=== PATIENT | female | born 1940 | race Caucasian/White ===

== ENCOUNTER 2016-06-02 18:02 | Emergency (ER) | payer MEDICARE ==
--- NOTE | 2016-06-02 18:31 | ERPHSYRPT ---
- History of Present Illness Source: patient Exam Limitations: no limitations Patient Subjective Stated Complaint: pt reports 2 days ago had a MEANS with floaters in her vision. "optical migraines". watching tv today and began having numbness, tingling, and floating sensation on right side of her body. c/o numbenss to right side. with decreased sensation Triage Nursing Assessment: Pt assisted via w/c to treatment area. no facial drooping noted. speech clear, denies pain or disc. smiling, denies pain or disc. minimal difficulty with finger to nose test. Timing/Duration: today (45 minutes prior to arrival) Severity: moderate Modifying Factors: Worsens With: cold therapy, eating, immobilization, medication, movement, rest, acetaminophen, ibuprofen Associated Symptoms: weakness (patient feels like she might be a little weaker on the right side), other (numbness right arm leg and face), No nausea, No vomiting, No abdominal pain, No shortness of breath, No heartburn, No diaphoresis, No cough, No chills, No chest pain, No fever, No headaches, No loss of appetite, No malaise, No rash, No syncope, No seizure Hx Tetanus, Diphtheria Vaccination/Date Given: Yes Hx Influenza Vaccination/Date Given: Yes Hx Pneumococcal Vaccination/Date Given: Yes Immunizations Up to Date: No <DIVINE BECKMAN - Last Filed: 06/02/16 18:42> - History of Present Illness Source: patient, family Exam Limitations: no limitations Severity: moderate <JUMA BARKSDALE - Last Filed: 06/02/16 21:10> - History of Present Illness Time Seen by Provider: 06/02/16 18:25 Physician History: 75-year-old white female arrives with complaint of paresthesia to the right side of her body including face arm and leg symptoms since 45 minutes prior to arrival patient states she feels a little weak on her right side however she has not had any movement problems she has no problems speaking. She states she had "an optical migraine" several days ago in which she felt like she was seeing floaters. And she states she gets these from time to time . 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; no neurodeficit but subjective paresthesis right side of body x 1 1/4 hours no prior CVA; has ocular migraines and had one last week a little more than usual; no headache today ; normal visual mack , no motor deficits at this time; repeat coord normal UE; (JUMA BARKSDALE) Home Medications: Ascorbic Acid [Vitamin C] 500 mg PO DAILY 06/02/16 [History] Aspirin 81 gm Chew [Baby Aspirin 81 mg Chew] 81 mg PO DAILY 06/02/16 [ History] Calcium Carbonate/Vitamin D3 [Calcium 500 mg Chewable Tablet] 1 each PO DAILY [History] Carvedilol 12.5 mg [Coreg 12.5 mg] 25 mg PO BID 06/02/16 [History] Cholecalciferol (Vitamin D3) [Vitamin D3] 1,000 unit PO DAILY 06/02/16 [History] Cyanocobalamin (Vitamin B-12) [Vitamin B12] 2,500 mcg PO DAILY 06/02/16 [History ] Ezetimibe 10 mg [Zetia 10 MG] 10 mg PO DAILY 06/02/16 [History] Ferrous Sulfate [Iron] 325 mg PO DAILY 06/02/16 [History] Flaxseed Oil/[place] 3,6,9 [Sv Flaxseed Oil 1,300 mg Sftgl] 1 each PO DAILY [History] Lutein Extract/Zeaxanthin Ext [Lutein 15 mg Softgel] 1 each PO UD 06/02/16 [ History] Multivitamin [Multivitamins] 1 each PO DAILY 06/02/16 [History] Naproxen 250 mg PO TID 06/02/16 [History] Omeprazole [Prilosec] 40 mg PO BID 06/02/16 [History] Psyllium Husk [Fiber Therapy] 0.52 gm PO 06/02/16 [History] Vitamin A 8,000 unit PO DAILY 06/02/16 [History] - Review of Systems Constitutional: No Fever, No Chills Eyes: No Symptoms, Other (patient with optical migraines 2 days ago) Ears, Nose, & Throat: No Symptoms Respiratory: No Cough, No Dyspnea Cardiac: No Chest Pain, No Edema, No Syncope Abdominal/Gastrointestinal: No Abdominal Pain, No Nausea, No Vomiting, No Diarrhea Genitourinary Symptoms: No Dysuria Musculoskeletal: No Back Pain, No Neck Pain Skin: No Rash Neurological: Other (patient states she feels somewhat numb on the right arm leg and face. Patient states she feels like she might be a little weaker on the right) Psychological: No Symptoms Endocrine: No Symptoms All Other Systems: Reviewed and Negative <YOCASTADIVINE ANUPAMA - Last Filed: 06/02/16 18:42> - Past Medical History Pertinent Past Medical History: Yes Neurological History: Migraines ENT History: No Pertinent History Cardiac History: Arrhythmia, Hypertension Respiratory History: No Pertinent History Endocrine Medical History: No Pertinent History Musculoskeletal History: Arthritis GI Medical History: Other History: No Pertinent History Psycho-Social History: No Pertinent History Female Reproductive Disorders: No Pertinent History Other Medical History: hiatal hernia - Past Surgical History Past Surgical History: Yes Neuro Surgical History: No Pertinent History Cardiac: No Pertinent History Respiratory: No Pertinent History Gastrointestinal: Cholecystectomy Musculoskeletal: Orthopedic Surgery Female Surgical History: Hysterectomy Other Surgical History: gastric bypass, carpal tunnel, left knee replacement - Social History Smoking Status: Former smoker Exposure to second hand smoke: No Drug Use: none Patient Lives Alone: No <YOCASTADIVINE ANUPAMA - Last Filed: 06/02/16 18:42> - Physical Exam General Appearance: no apparent distress, alert Eye Exam: PERRL/EOMI, eyes nml inspection Ears, Nose, Throat Exam: normal ENT inspection, TMs normal, pharynx normal, moist mucous membranes Neck Exam: normal inspection, non-tender, supple, full range of motion Respiratory Exam: normal breath sounds, lungs clear, No respiratory distress Cardiovascular Exam: regular rate/rhythm, normal heart sounds, normal peripheral pulses Gastrointestinal/Abdomen Exam: soft, normal bowel sounds, No tenderness, No mass Back Exam: normal inspection, normal range of motion, No CVA tenderness, No vertebral tenderness Extremity Exam: normal inspection, normal range of motion, pelvis stable Neurologic Exam: alert, oriented x 3, cooperative, leisure travel agent II-XII nml as tested, normal mood/affect, nml cerebellar function, nml station & gait, sensation nml, other (patient alert oriented 3, cranial nerves II through XII are intact, DTRs symmetrical equal 2 over 4 musculoskeletal strength intact and symmetrical 5 over 5 patient slightly overshoots her nose was finger to nose with her right hand otherwise her nose within normal limits no pronator drift is noted), No motor deficits Skin Exam: normal color, warm, dry, No rash Lymphatic Exam: No adenopathy SpO2 Interpretation: normal (96%) Oxygen Delivery: Room Air <ELHAMNGADIVINE HILLLEY - Last Filed: 06/02/16 18:42> - Course Nursing assessment & vital signs reviewed: Yes EKG Interpreted by Me: Sinus Rhythm, NORMAL AXIS, Non-specific ST Changes, Other (poor r wave progression) - CT Exams Head CT Interpretation: Negative, Tele-radiologist Report <JUMA BARKSDALE - Last Filed: 06/02/16 21:10> Ordered Tests: Active Orders 24 hr Category Date Time Status Accucheck STAT Care 06/02/16 18:24 Active EKG-ER Only STAT Care 06/02/16 18:24 Active IV Insertion STAT Care 06/02/16 18:24 Active HEAD WITHOUT CONTRAST [CT] Stat Exams 06/02/16 18:24 Completed CBC W DIFF Stat Lab 06/02/16 18:15 Completed CMP Stat Lab 06/02/16 18:15 Completed PROTIME WITH INR Stat Lab 06/02/16 18:15 Completed PTT Stat Lab 06/02/16 18:15 Completed TROPONIN Q3H Lab 06/02/16 19:30 Completed TROPONIN Q3H Lab 06/02/16 22:30 Ordered TROPONIN Q3H Lab 06/03/16 01:30 Ordered TROPONIN Q3H Lab 06/03/16 04:30 Ordered TROPONIN Q3H Lab 06/03/16 07:30 Ordered Lab/Rad Data: Laboratory Result Diagrams 06/02/16 18:15 06/02/16 18:15 Laboratory Results 06/02/16 06/02/16 06/02/16 Range/Units 19:30 18:15 18:15 WBC (4.0-10.5) K/mm3 RBC (4.1-5.4) M/mm3 Hgb (12.0-16.0) gm/dl Hct (35-47) % MCV (78-100) fl MCH (26-32) pg MCHC (32-36) g/dl RDW (11.5-14.0) % Plt Count (150-450) K/mm3 MPV (6-9.5) fl Gran % (36.0-66.0) % Lymphocytes % (24.0-44.0) % Monocytes % (0.0-12.0) % Eosinophils % (0.00-5.0) % Basophils % (0.0-0.4) % Basophils # (0-0.4) INR 1.06 (0.8-3.0) PTT 32.3 (25.3-37.0) SECONDS Sodium 138 (136-145) mEq/L Potassium 4.0 (3.5-5.1) mEq/L Chloride 103 (98-107) mEq/L Carbon Dioxide 25.2 (21-32) mEq/L Anion Gap 14.0 (5-15) MEQ/L BUN 25 H (9-20) mg/dL Creatinine 1.27 (0.55-1.30) mg/dl Estimated GFR 43 ML/MIN Glucose 111 H (70-110) MG/DL Calcium 9.0 (8.5-10.1) mg/dL Total Bilirubin 0.6 (0.2-1.0) mg/dL AST 19 (15-37) U/L ALT 21 (12-78) U/L Alkaline Phosphatase 87 (46-116) U/L Troponin I 0.052 (0.000-0.056) ng/ml Serum Total Protein 7.0 (6.4-8.2) gm/dL Albumin 3.7 (3.4-5.0) g/dL 06/02/16 Range/Units 18:15 WBC 8.4 (4.0-10.5) K/mm3 RBC 4.58 (4.1-5.4) M/mm3 Hgb 14.0 (12.0-16.0) gm/dl Hct 42.9 (35-47) % MCV 93.7 (78-100) fl MCH 30.6 (26-32) pg MCHC 32.6 (32-36) g/dl RDW 13.3 (11.5-14.0) % Plt Count 307 (150-450) K/mm3 MPV 10.0 H (6-9.5) fl Gran % 61.7 (36.0-66.0) % Lymphocytes % 25.0 (24.0-44.0) % Monocytes % 10.9 (0.0-12.0) % Eosinophils % 2.3 (0.00-5.0) % Basophils % 0.1 (0.0-0.4) % Basophils # 0.01 (0-0.4) INR (0.8-3.0) PTT (25.3-37.0) SECONDS Sodium (136-145) mEq/L Potassium (3.5-5.1) mEq/L Chloride (98-107) mEq/L Carbon Dioxide (21-32) mEq/L Anion Gap (5-15) MEQ/L BUN (9-20) mg/dL Creatinine (0.55-1.30) mg/dl Estimated GFR ML/MIN Glucose (70-110) MG/DL Calcium (8.5-10.1) mg/dL Total Bilirubin (0.2-1.0) mg/dL AST (15-37) U/L ALT (12-78) U/L Alkaline Phosphatase (46-116) U/L Troponin I (0.000-0.056) ng/ml Serum Total Protein (6.4-8.2) gm/dL Albumin (3.4-5.0) g/dL - Progress Progress: improved <DIVINE BECKMAN - Last Filed: 06/02/16 18:42> - Progress Progress: improved, re-examined Discussed with Dr.: Other (Dr. Sim at [facility] ) Will see patient in: hospital (full admit) Counseled pt/family regarding: lab results, diagnosis, need for follow-up, rad results <JUMA BARKSDALE - Last Filed: 06/02/16 21:10> - Progress Progress Note: 06/02/16 18:40 This is a 75-year-old white female who complains of right-sided numbness and some subjective mild right-sided weakness symptoms for [address] of the head has been ordered as have appropriate labs. Case has been discussed with Dr. Ferrara. He will assume care of this patient secondary to shift change. (DIVINE BECKMAN) 06/02/16 19:14 pt numbness feelings have improved some; coord is again normal F to N at this time;no objective decreased sensation at [facility] time; 06/02/16 21:[address] Sim at [facility] who accepted and is getting a bed on stroke unit and ordering MR studies; (JUMA BARKSDALE) <DIVINE BECKMAN - Last Filed: 06/02/16 18:42> - Departure Time of Disposition: 21:07 Departure Disposition: Transfer Critical Care Time: No <JUMA BARKSDALE - Last Filed: 06/02/16 21:10> - Departure Clinical Impression: TIA (transient ischemic attack) Condition: Good Referrals: WES ZAVALETA [Primary Care Provider] -
[2016-06-02 18:34] LABS: BASOPHIL % 0.1 % (0.0-0.4); Eosinophil % 2.3 % (0.00-5.0); Granulocytes % 61.7 % (36.0-66.0); Mean Cell Volume 93.7 fl (78-100); Mean Corpuscular Hemoglobin 30.6 pg (26-32); Monocytes % 10.9 % (0.0-12.0); Platelet Count 307 K/mm3 (150-450); Red Blood Count 4.58 M/mm3 (4.1-5.4); Red Cell Distribution Width 13.3 % (11.5-14.0); White Blood Count 8.4 K/mm3 (4.0-10.5)
[2016-06-02 18:48] LABS: INR 1.06 (0.8-3.0); PROTIME 11.8 SECONDS (9.95-12.35)
[2016-06-02 18:51] LABS: PTT 32.3 SECONDS (25.3-37.0)
[2016-06-02 18:56] LABS: ALBUMIN 3.7 g/dL (3.4-5.0); BILIRUBIN,TOTAL 0.6 mg/dL (0.2-1.0); Carbon Dioxide 25.2 mEq/L (21-32)
[2016-06-02 20:31] VITALS: BP 148/93; PULSE 85; O2SAT 95
--- NOTE | 2016-06-02 20:51 | XRAY ---
Indication: Right-sided numbness. Multiple contiguous axial images obtained through the head without contrast. Comparison: None Normal appearing brain parenchyma, ventricles, and bony calvarium. Visualized paranasal sinuses and mastoid air cells are pneumatized and clear. Impression: Normal CT head without contrast exam. CTDI 67.80
== END 2016-06-02 22:37 | disposition short-term general hospital (02) ==
LOC: ED 18:02
DX: G45.9 Transient cerebral ischemic attack, unspecified (principal); Z79.899 Other long term (current) drug therapy; R20.9 Unspecified disturbances of skin sensation; I10 Essential (primary) hypertension; Z98.84 Bariatric surgery status
CPT/HCPCS: 36000; 36415; 70450; 80053; 82962; 84484; 85025; 85610; 85730; 93005; 99284; 99285

== ENCOUNTER 2016-12-22 11:23 | Emergency (ER) | payer MEDICARE ==
--- NOTE | 2016-12-22 11:45 | ERPHSYRPT ---
- History of Present Illness Time Seen by Provider: 12/22/16 11:37 Source: patient Exam Limitations: no limitations Physician History: 76 y/o female comes to the ER with complaints of right sided flank pain and lower abdominal pressure that started this morning. Pt describes the pain as sharp, constant, 7/10 and pt has not taken any pain meds. Pt admits to polyuria , nausea and chills. Pt has had a UTI in the past but never has had a kidney stone. Of note, patient states that the pain started last night after having a sneezing episode. Pt denies any fever, vomiting, dysuria or hematuria. Timing/Duration: today, yesterday Activites at Onset: none Quality: sharpness Onset Location: abdominal pain, low back pain Pain Radiation: none Severity of Pain-Max: moderate Severity of Pain-Current: moderate Prior abdominal problems: none Sexual intercourse history: non-contributory Modifying Factors: Improves With: other (sneezing) Associated Symptoms: abdominal pain, urinary frequency Allergies/Adverse Reactions: Penicillins Allergy (Verified 12/22/16 11:41) Home Medications: Ascorbic Acid [Vitamin C] 500 mg PO DAILY 06/02/16 [History] Aspirin 81 gm Chew [Baby Aspirin 81 mg Chew] 81 mg PO DAILY 06/02/16 [ History] Calcium Carbonate/Vitamin D3 [Calcium 500 mg Chewable Tablet] 1 each PO DAILY [History] Carvedilol 12.5 mg [Coreg 12.5 mg] 25 mg PO BID 06/02/16 [History] Cholecalciferol (Vitamin D3) [Vitamin D3] 1,000 unit PO DAILY 06/02/16 [History] Cyanocobalamin (Vitamin B-12) [Vitamin B12] 2,500 mcg PO DAILY 06/02/16 [History ] Ezetimibe 10 mg [Zetia 10 MG] 10 mg PO DAILY 06/02/16 [History] Ferrous Sulfate [Iron] 325 mg PO DAILY 06/02/16 [History] Flaxseed Oil/[place] 3,6,9 [Sv Flaxseed Oil 1,300 mg Sftgl] 1 each PO DAILY [History] Lutein Extract/Zeaxanthin Ext [Lutein 15 mg Softgel] 1 each PO UD 06/02/16 [ History] Multivitamin [Multivitamins] 1 each PO DAILY 06/02/16 [History] Naproxen 250 mg PO TID 06/02/16 [History] Omeprazole [Prilosec] 40 mg PO BID 06/02/16 [History] Psyllium Husk [Fiber Therapy] 0.52 gm PO DAILY 06/02/16 [History] Vitamin A 8,000 unit PO DAILY 06/02/16 [History] Pravastatin Sodium [Pravachol] 20 mg PO DAILY 12/22/16 [History] Hx Tetanus, Diphtheria Vaccination/Date Given: Yes Hx Influenza Vaccination/Date Given: Yes Hx Pneumococcal Vaccination/Date Given: Yes - Review of Systems Constitutional: No Fever, No Chills Eyes: No Symptoms Ears, Nose, & Throat: No Symptoms Respiratory: No Cough, No Dyspnea Cardiac: No Chest Pain, No Edema, No Syncope Abdominal/Gastrointestinal: Abdominal Pain, Nausea, No Vomiting, No Diarrhea Genitourinary Symptoms: Frequency, No Dysuria Musculoskeletal: Back Pain, No Neck Pain Skin: No Rash Neurological: No Dizziness, No Focal Weakness, No Sensory Changes Psychological: No Symptoms Endocrine: No Symptoms All Other Systems: Reviewed and Negative - Past Medical History Pertinent Past Medical History: Yes Neurological History: Migraines ENT History: No Pertinent History Cardiac History: Arrhythmia, Hypertension Respiratory History: No Pertinent History Endocrine Medical History: No Pertinent History Musculoskeletal History: Arthritis GI Medical History: Other History: No Pertinent History Psycho-Social History: No Pertinent History Female Reproductive Disorders: No Pertinent History Other Medical History: hiatal hernia - Past Surgical History Past Surgical History: Yes Neuro Surgical History: No Pertinent History Cardiac: No Pertinent History Respiratory: No Pertinent History Gastrointestinal: Cholecystectomy Musculoskeletal: Orthopedic Surgery Female Surgical History: Hysterectomy Other Surgical History: gastric bypass, carpal tunnel, left knee replacement - Social History Smoking Status: Former smoker Exposure to second hand smoke: No Drug Use: none Patient Lives Alone: No - Nursing Vital Signs Nursing Vital Signs: Initial Vital Signs Temperature 97.7 F 12/22/16 11:36 Pulse Rate 71 12/22/16 11:36 Respiratory Rate 24 12/22/16 11:36 Blood Pressure 178/87 12/22/16 11:36 O2 Sat by Pulse Oximetry 98 12/22/16 11:36 Pain Scale Pain Intensity 4 - Physical Exam General Appearance: mild distress, alert, anxiety Eye Exam: PERRL/EOMI, eyes nml inspection Ears, Nose, Throat Exam: normal ENT inspection, TMs normal, pharynx normal, moist mucous membranes Neck Exam: normal inspection, non-tender, supple, full range of motion Respiratory Exam: normal breath sounds, lungs clear, No respiratory distress Cardiovascular Exam: regular rate/rhythm, normal heart sounds, normal peripheral pulses Gastrointestinal/Abdomen Exam: soft, normal bowel sounds, No tenderness, No mass Back Exam: normal inspection, normal range of motion, No CVA tenderness, No vertebral tenderness Extremity Exam: normal inspection, normal range of motion, pelvis stable Neurologic Exam: alert, oriented x 3, cooperative, 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, normal mood/affect, sensation nml, No motor deficits Skin Exam: normal color, warm, dry Lymphatic Exam: No adenopathy - Course Nursing assessment & vital signs reviewed: Yes Ordered Tests: Active Orders 24 hr Category Date Time Status IV Insertion STAT Care 12/22/16 11:46 Active ABDOMEN AND PELVIS W/0 CONTRAS [CT] Stat Exams 12/22/16 11:47 Taken BLOOD CULTURE Stat Lab 12/22/16 12:50 Received CBC W DIFF Stat Lab 12/22/16 12:00 Completed CMP Stat Lab 12/22/16 12:00 Completed CULTURE,URINE Stat Lab 12/22/16 12:00 Received Manual Differential NC Stat Lab 12/22/16 12:00 Completed UA W/ MICROSCOPIC Stat Lab 12/22/16 12:00 Completed Medication Summary Generic Name Dose Route Start Last Admin Trade Name Freq PRN Reason Stop Dose Admin Sodium Chloride 1,000 mls @ 100 mls/hr 12/22/16 12:00 12/22/16 12:50 Sodium Chloride 0.9% 1000 Ml IV 01/21/17 11:59 100 mls/hr .Q10H KARIME Administration Discontinued Medications Generic Name Dose Route Start Last Admin Trade Name Freq PRN Reason Stop Dose Admin Ceftriaxone Sodium/Dextrose 1 g in 50 mls @ 100 mls/hr 12/22/16 12:48 12:51 Rocephin 1 Gm-D5w 50 Ml Bag IV 12/22/16 13:17 100 mls/hr STAT STA Administration Ceftriaxone Sodium/Dextrose Confirm 12/22/16 12:50 Rocephin 1 Gm-D5w 50 Ml Bag Administered 12/22/16 12:51 Dose 1 g in 50 mls @ ud IV .STK-MED ONE Ketorolac Tromethamine 30 mg 12/22/16 11:49 12/22/16 12:48 Toradol 30 Mg Injection IV 12/22/16 11:50 30 mg STAT ONE Administration Ketorolac Tromethamine Confirm 12/22/16 12:20 Toradol 30 Mg Injection Administered 12/22/16 12:21 Dose 30 mg .ROUTE .STK-MED ONE Ondansetron HCl 4 mg 12/22/16 11:46 12/22/16 12:50 Zofran 4 Mg/2 Ml Vial IV 12/22/16 11:47 Not Given STAT ONE Ondansetron HCl Confirm 12/22/16 12:19 Zofran 4 Mg/2 Ml Vial Administered 12/22/16 12:20 Dose 4 mg .ROUTE .STK-MED ONE Lab/Rad Data: Laboratory Result Diagrams 12/22/16 12:00 12/22/16 12:00 Laboratory Results 12/22/16 12/22/16 12/22/16 Range/Units 12:00 12:00 12:00 WBC 7.3 (4.0-10.5) K/mm3 RBC 4.79 (4.1-5.4) M/mm3 Hgb 14.5 (12.0-16.0) gm/dl Hct 45.1 (35-47) % MCV 94.2 (78-100) fl MCH 30.3 (26-32) pg MCHC 32.2 (32-36) g/dl RDW 13.3 (11.5-14.0) % Plt Count 239 (150-450) K/mm3 MPV 10.1 H (6-9.5) fl Segmented Neutrophils 75 H (36.0-66.0) % Band Neutrophils 15 H (0.0-2.0) % Lymphocytes (Manual) 4 L (24-44) % Monocytes (Manual) 1 (0.0-12.0) % Eosinophils (Manual) 5 H (0.00-3.0) % Differential Comment NORMAL Platelet Estimate NORMAL (NORMAL) Sodium 139 (136-145) mEq/L Potassium 4.5 (3.5-5.1) mEq/L Chloride 104 (98-107) mEq/L Carbon Dioxide 24.0 (21-32) mEq/L Anion Gap 15.1 H (5-15) MEQ/L BUN 21 H (9-20) mg/dL Creatinine 1.36 H (0.55-1.30) mg/dl Estimated GFR 40 ML/MIN Glucose 124 H (70-110) MG/DL Calcium 9.5 (8.5-10.1) mg/dL Total Bilirubin 1.10 H (0.2-1.0) mg/dL AST 25 (15-37) U/L ALT 20 (12-78) U/L Alkaline Phosphatase 92 (46-116) U/L Serum Total Protein 6.9 (6.4-8.2) gm/dL Albumin 3.7 (3.4-5.0) g/dL Ur Collection Type VOID Urine Color YELLOW (YELLOW) Urine Appearance HAZY (CLEAR) Urine pH 5.0 (5-6) Ur Specific Colt 1.020 (1.005-1.025) Urine Protein NEGATIVE (Negative) Urine Ketones NEGATIVE (NEGATIVE) Urine Blood 5-10 (0-5) Roberto/ul Urine Nitrite NEGATIVE (NEGATIVE) Urine Bilirubin NEGATIVE (NEGATIVE) Urine Urobilinogen 1 (0-1) mg/dL Ur Leukocyte Esterase 1+ (NEGATIVE) Urine Microscopic RBC 2-5 (0-2) /HPF Urine Microscopic WBC 2-5 (0-5) /HPF Ur Epithelial Cells MODERATE (FEW) /HPF Urine Bacteria FEW (NEGATIVE) /HPF Urine Glucose NEGATIVE (NEGATIVE) mg/dL Specimen Received 12/22/16 1200 - Progress Progress: improved Progress Note: 12/22/16 14:[address] scan abd/pelvis shows moderate right hydronephrosis, renal edema, and perinephric stranding with a 6X9 mm stone in the distal right ureter about 1.5 cm from the bladder. Pt has a UTI and was started on rocephin. Pt has no pain after receiving NS fluids and toradol. Pt has been accepted at [place] under the care of urologist, Dr Maher and hospitalist, Dr Momin. - Departure Time of Disposition: 14:25 Departure Disposition: Transfer Clinical Impression: Kidney stone Condition: Stable Critical Care Time: No Referrals: WES ZAVALETA [Primary Care Provider] -
[2016-12-22] MEDS ORDERED: TORAdol 30 mg Injection IV ONE (11:49)
[2016-12-22] MEDS ORDERED: Sodium Chloride 0.9% 1000 ML 1,000 ML IV SCH (12:00)
[2016-12-22 12:17] LABS: Mean Cell Volume 94.2 fl (78-100); Mean Corpuscular Hemoglobin 30.3 pg (26-32); Mean Platelet Volume 10.1 fl (6-9.5); Platelet Count 239 K/mm3 (150-450); Red Blood Count 4.79 M/mm3 (4.1-5.4); Red Cell Distribution Width 13.3 % (11.5-14.0); White Blood Count 7.3 K/mm3 (4.0-10.5)
[2016-12-22] MEDS ORDERED: Zofran 4 MG/2 ML VIAL ONE (12:19)
[2016-12-22] MEDS ORDERED: TORAdol 30 mg Injection ONE (12:20)
[2016-12-22] MEDS ORDERED: Sodium Chloride 0.9% 1000 ML 1,000 ML ONE (12:20)
[2016-12-22 12:37] LABS: ALBUMIN 3.7 g/dL (3.4-5.0); ANION GAP 15.1 MEQ/L (5-15); BILIRUBIN,TOTAL 1.1 mg/dL (0.2-1.0); Potassium 4.5 mEq/L (3.5-5.1); Total Protein 6.9 gm/dL (6.4-8.2)
[2016-12-22 12:41] LABS: Collection Type VOID
[2016-12-22 12:42] LABS: Bilirubin NEGATIVE (NEGATIVE); COMPLETE URINE MICROSCOPIC? YES; Glucose NEGATIVE (NEGATIVE); Leukocyte Esterase 1+ (NEGATIVE)
[2016-12-22 12:45] LABS: Bacteria FEW /HPF (NEGATIVE); Epithelial Cells MODERATE /HPF (FEW)
[2016-12-22] MEDS: Zofran 4 MG/2 ML VIAL IV ONE ×2 (12:48→12:50)
[2016-12-22] MEDS ORDERED: ROCEPHIN 1 Gm-D5w 50 ml Bag** 1 G/50 ML IVPB IV STA (12:48)
[2016-12-22 12:49] LABS: BAND 15 % (0.0-2.0); Eosinophil 5 % (0.00-3.0); Platelet Estimate NORMAL (NORMAL); Total Cells Counted 100
[2016-12-22] MEDS ORDERED: ROCEPHIN 1 Gm-D5w 50 ml Bag** 1 G/50 ML IVPB IV ONE (12:50)
[2016-12-22 12:53] LABS: ADD URINE CULTURE? NO (NO)
[2016-12-22 14:59] VITALS: O2SAT 94
[2016-12-22 15:22] VITALS: BP 158/82; PULSE 88
--- NOTE | 2016-12-22 21:18 | XRAY ---
Indication: Lower abdominal pain/pressure. Multiple contiguous axial images obtained through the abdomen and pelvis without contrast using renal stone protocol. Comparison: None Lung bases are clear with incidental right base calcified granuloma. Heart is not enlarged. Small hiatal hernia. There is a 9 mm right UVJ calculus. Proximal right ureter is distended up to 12 mm and there is moderate hydronephrosis with perinephric stranding/fluid consistent with high-grade obstruction. Multiple left renal calculi, largest 9 mm. Previous gastric bypass surgery. Noncontrasted stomach and bowel loops appear nonobstructed. Scattered colonic diverticulosis greatest sigmoid. Hepatic/splenic calcified granulomas. Previous cholecystectomy. Remaining pancreas, adrenal glands, and urinary bladder appear unremarkable. Mild aortoiliac calcifications without AAA. Osseous structures intact with advanced degenerative changes throughout the spine and moderate levorotoscoliosis centered at the L2-L3 level. Impression: 1. 9 mm right UVJ calculus producing high-grade obstruction as detailed. Additional left renal micro-calculi. 2. Colonic diverticulosis. 3. Small hiatal hernia. 4. 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 Comment: Preliminary interpretation was made by [facility]. No discrepancy. CTDI 23.68
== END 2016-12-22 15:26 | disposition short-term general hospital (02) ==
LOC: ED 11:23
DX: N20.0 Calculus of kidney (principal); R10.9 Unspecified abdominal pain; R35.8 Other polyuria; R11.0 Nausea; M54.5 Low back pain
CPT/HCPCS: 36000; 36415; 74176; 80053; 81000; 85025; 87040; 87077; 87086; 87186; 96360; 96361; 96365; 96374; 96375; 99285; J0696; J1885; J2405

== ENCOUNTER 2023-05-09 09:32 | Inpatient (IN) | payer MEDICARE ==
--- NOTE | 2023-05-09 15:07 | PCM.SB.HP ---
Swing Bed H&P - Acute Care H&P in SB Record Acute H&P in Swing Bed Medical Record & valid with no change: Yes - Acute Care H&P Revisions as follows Physical Exam Changes: Ms. 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 Patient states she is doing well. No complaints other than fatigue and weakness. Plan for one more day of cefpodoxime and Flagyl and continued physical therapy for strengthening. General Appearance: no apparent distress Neurologic: alert, oriented x 3, cooperative Eye Exam: PERRL/EOMI Ears, Nose, Throat Exam: normal ENT inspection Neck Exam: normal inspection Respiratory: crackles/rales, wheezing Cardiovascular: regular rate/rhythm, normal heart sounds Gastrointestinal: soft, normal bowel sounds, other (bile tube drain capped) Pelvic Exam: not done Rectal Exam: deferred Back Exam: normal inspection Extremity Exam: normal inspection Skin Exam: normal color - Acute Care ROS Revisions Constitutional: Fatigue, Weakness Eyes (ROS): No Symptoms Ears, Nose, & Throat: No Symptoms Respiratory: No Symptoms Cardiac: No Symptoms Abdominal/Gastrointestinal: No Symptoms Genitourinary Symptoms: No Symptoms Genitourinary Symptoms: No Symptoms Musculoskeletal: No Symptoms Skin: Other (bile tube drain, capped) Neurological: No Symptoms Psychological: No Symptoms Endocrine: No Symptoms Hematologic/Lymphatic: No Symptoms Immunological/Allergic: No Symptoms
--- NOTE | 2023-05-09 15:14 | PCM.HP ---
History of Present Illness - Chief Complaint Chief Complaint: DECONDITIONING D/T SEPSIS/CHOLANGITIS Date: 05/09/23 History of Present Illness: Ms. 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 Patient states she is doing well. No complaints other than fatigue and weakness. Plan for one more day of cefpodoxime and Flagyl and continued physical therapy for strengthening. - Review of Systems Constitutional: Fatigue, Weakness Eyes: No Symptoms Ears, Nose, & Throat: No Symptoms Respiratory: No Symptoms Cardiac: No Symptoms Abdominal/Gastrointestinal: No Symptoms Genitourinary Symptoms: No Symptoms Musculoskeletal: No Symptoms Skin: No Symptoms, Other (bile duct tube drain with cap) Neurological: No Symptoms Psychological: No Symptoms Endocrine: No Symptoms Hematologic/Lymphatic: No Symptoms Immunological/Allergic: No Symptoms Medications & Allergies Home Medications: Home Medication List Ascorbic Acid [Vitamin C] 500 mg PO DAILY 06/02/16 [History Confirmed 12/22/16] Aspirin 81 gm Chew [Baby Aspirin 81 mg Chew] 81 mg PO DAILY 06/02/16 [History Confirmed 12/22/16] Calcium Carbonate/Vitamin D3 [Calcium 500 mg Chewable Tablet] 1 each PO DAILY 06/02/16 [History Confirmed 12/22/16] Carvedilol 12.5 mg [Coreg 12.5 mg] 25 mg PO BID 06/02/16 [History Confirmed 12/22/16] Cholecalciferol (Vitamin D3) [Vitamin D3] 1,000 unit PO DAILY 06/02/16 [History Confirmed 12/22/16] Cyanocobalamin (Vitamin B-12) [Vitamin B12] 2,500 mcg PO DAILY 06/02/16 [History Confirmed 12/22/16] Ezetimibe 10 mg [Zetia 10 MG] 10 mg PO DAILY 06/02/16 [History Confirmed 0 12/22/16] Ferrous Sulfate [Iron] 325 mg PO DAILY 06/02/16 [History Confirmed 06/02/16] Flaxseed Oil/Shoshone 3,6,9 [Sv Flaxseed Oil 1,300 mg Sftgl] 1 each PO DAILY 06/02/16 [History Confirmed 12/22/16] Lutein Extract/Zeaxanthin Ext [Lutein 15 mg Softgel] 1 each PO UD 06/02/16 [History Confirmed 12/22/16] Multivitamin [Multivitamins] 1 each PO DAILY 06/02/16 [History Confirmed 12/22/16] Naproxen 250 mg PO TID 06/02/16 [History Confirmed 12/22/16] Omeprazole [Prilosec] 40 mg PO BID 06/02/16 [History Confirmed 12/22/16] Psyllium Husk [Fiber Therapy] 0.52 gm PO DAILY 06/02/16 [History Confirmed 12/22/16] Vitamin A 8,000 unit PO DAILY 06/02/16 [History Confirmed 12/22/16] Pravastatin Sodium [Pravachol] 20 mg PO DAILY 12/22/16 [History Confirmed 12/22/16] Allergies/Adverse Reactions: Allergies Allergy/AdvReac Type Severity Reaction Status Date / Time Penicillins Allergy Verified 12/22/16 11:41 - Past Medical History Past Medical History: Yes Neurological History: Stroke ENT History: No Pertinent History Cardiac History: Arrhythmia, High Cholesterol, Hypertension Respiratory History: No Pertinent History Endocrine Medical History: Hypothyroidism Musculoskelatal History: Degenerative Disk Disease, Osteoarthritis GI Medical History: Other History: No Pertinent History Pyscho-Social History: No Pertinent History Reproductive Disorders: No Pertinent History Comment: REPORTS CVA AFFECTED SKIN PRIMARILY WITH NUMBNESS BUT 90% RESOLVED. P MHX: GERD, BREAST CA (LUMPECTOMY LEFT AND RADIATION) 1999, LEFT TKR 2011, GASTRIC BYPASS - Past Surgical History Past Surgical History: Yes Neuro Surgical History: No Pertinent History Cardiac History: No Pertinent History Respiratory Surgery: No Pertinent History GI Surgical History: Cholecystectomy Musculskeletal Surgical Hx: Orthopedic Surgery Female Surgical History: Hysterectomy Other Surgical History: gastric bypass, carpal tunnel, left knee replacement - Social History Smoking Status: Former smoker Exposure to second hand smoke: No Alcohol: None Drug Use: none - Physical Exam General Appearance: no apparent distress Neurologic Exam: alert, oriented x 3, cooperative Eye Exam: PERRL/EOMI Ears, Nose, Throat Exam: normal ENT inspection Neck Exam: normal inspection Respiratory Exam: crackles/rales, wheezing Cardiovascular Exam: regular rate/rhythm, normal heart sounds Gastrointestinal/Abdomen Exam: normal bowel sounds Pelvic Exam: not done Rectal Exam: deferred Back Exam: normal inspection Extremity Exam: normal inspection Skin Exam: other (bile duct tube drain with cap) Assessment/Plan (1) Cholangitis Current Visit: Yes Status: Acute Assessment & Plan: -Records reviewed, Bile cx with Ecoli -Continue cefpodoxime/flagyl, will complete 05/10/23 -Monitor bile duct tube drain, obtain records on future plans for intervention or need for exploration of distal bile stricture -Monitor CMP, CBC daily Code(s): K83.09 - OTHER CHOLANGITIS (2) Weakness acquired in ICU Current Visit: Yes Status: Acute Assessment & Plan: -PT/OT Code(s): R53.1 - WEAKNESS (3) HTN (hypertension) Current Visit: Yes Status: Acute Assessment & Plan: -Monitor BP, continue home medications Code(s): I10 - ESSENTIAL (PRIMARY) HYPERTENSION (4) GERD (gastroesophageal reflux disease) Current Visit: Yes Status: Acute Assessment & Plan: -continue home meds Code(s): K21.9 - GASTRO-ESOPHAGEAL REFLUX DISEASE WITHOUT ESOPHAGITIS (5) Hypothyroid Current Visit: Yes Status: Acute Assessment & Plan: -continue home meds Code(s): E03.9 - HYPOTHYROIDISM, UNSPECIFIED
[2023-05-09] MEDS ORDERED: Flagyl 500 MG PO SCH (15:30)
[2023-05-09] MEDS ORDERED: LUTEIN EXTRACT PO SCH (15:30)
[2023-05-09] MEDS ORDERED: [UNRECOGNIZED DRUG - OTHER] PO SCH (15:30)
[2023-05-09] MEDS ORDERED: ZEAXANTHIN EXT PO SCH (15:30)
[2023-05-09] MEDS: Flagyl 500 MG PO SCH (16:24)
[2023-05-09] MEDS ORDERED: MEDICATION INTERVENTION MC SCH ×8 (16:45→17:15)
[2023-05-09] MEDS: TYLENOL EXTRA STRENGTH 500 MG PO PRN (21:21)
[2023-05-09] MEDS: CEFTIN 500 MG PO SCH (21:21)
[2023-05-09] MEDS: COREG 12.5 MG PO SCH (21:22)
[2023-05-09] MEDS: FIBERCON 625 MG PO SCH (21:22)
[2023-05-09] MEDS ORDERED: NON-FORMULARY ITEM (Cefpodoxime Proxetil 200 Mg** 200 MG Tablet) PO SCH (22:00)
[2023-05-09] MEDS ORDERED: NON-FORMULARY ITEM (Ubidecarenone/Vit E Acet [Co Q-10 100 Mg Softgel] 1 EACH Capsule) PO SCH (22:00)
[2023-05-09] MEDS ORDERED: CHONDROITIN SULFATE PO SCH (22:00)
[2023-05-09] MEDS ORDERED: TURMERIC PO SCH (22:00)
[2023-05-09] MEDS ORDERED: [UNRECOGNIZED DRUG - OTHER] PO SCH (22:00)
[2023-05-10] MEDS ORDERED: NON-FORMULARY ITEM (Multivitamin [Multivitamins] 1 EACH Capsule) PO SCH (10:00)
[2023-05-10] MEDS ORDERED: NON-FORMULARY ITEM (Atorvastatin Calcium 20 MG Tab) PO SCH (10:00)
[2023-05-10] MEDS ORDERED: [UNRECOGNIZED DRUG - OTHER] PO SCH (10:00)
[2023-05-10] MEDS ORDERED: NON-FORMULARY ITEM (Cyanocobalamin (Vitamin B-12) [Vitamin B12] 2,500 MCG Tablet) PO SCH (10:00)
[2023-05-10] MEDS ORDERED: [UNRECOGNIZED DRUG - OTHER] PO SCH (10:00)
[2023-05-10] MEDS ORDERED: VITAMIN D3 PO SCH (10:00)
[2023-05-10] MEDS ORDERED: CRANBERRY FRUIT 250 MG PO SCH (10:00)
[2023-05-10] MEDS ORDERED: BABY ASPIRIN 81 MG CHEW PO SCH (10:00)
[2023-05-10] MEDS ORDERED: NAPROXEN 250 MG PO SCH (10:00)
[2023-05-10] MEDS ORDERED: BIOTIN 1000 MCG PO SCH (10:00)
[2023-05-10] MEDS ORDERED: [UNRECOGNIZED DRUG - OTHER] PO SCH (10:00)
[2023-05-10] MEDS ORDERED: CALCIUM CARBONATE PO SCH (10:00)
[2023-05-10] MEDS ORDERED: NON-FORMULARY ITEM (Cholecalciferol (Vitamin D3) [Vitamin D3] 1,000 UNIT Capsule) PO SCH (10:00)
[2023-05-10] MEDS ORDERED: VITAMIN A 8000 UNIT PO SCH (10:00)
[2023-05-10] MEDS ORDERED: FLAXSEED OIL PO SCH (10:00)
[2023-05-10] MEDS ORDERED: NON-FORMULARY ITEM (Losartan/Hydrochlorothiazide [Losartan-Hctz 100-12.5 Mg Tab] 1 EACH Ta PO SCH (10:00)
[2023-05-10] MEDS: ULTRAM 50 MG PO PRN (10:48)
[2023-05-10] MEDS: THERAGRAN MULTIVITAMIN PO SCH (10:48)
[2023-05-10] MEDS: Naprosyn 500 MG PO SCH (10:48)
[2023-05-10] MEDS: Vitamin B-12 500 MCG PO SCH (10:49)
[2023-05-10] MEDS: ZOCOR 20MG PO SCH (10:49)
[2023-05-10] MEDS: FEOSOL 325 MG PO SCH (10:49)
[2023-05-10] MEDS: Zetia 10 MG PO SCH (10:50)
[2023-05-10] MEDS: PLAVIX Tablet PO SCH (10:50)
[2023-05-10] MEDS: SYNTHROID 100 MCG PO SCH (10:50)
[2023-05-10] MEDS: ECOTRIN 81 MG PO SCH (10:50)
[2023-05-10] MEDS: Calcium 500MG W/Vit D Tablet PO SCH (10:51)
[2023-05-10] MEDS: VITAMIN D PO SCH (10:51)
[2023-05-10] MEDS: hydroDIURIL 25 MG PO SCH (10:54)
[2023-05-10] MEDS: Cozaar 50 MG PO SCH (10:54)
[2023-05-10 10:56] LABS: Hematocrit 38.8 % (35-47); Hemoglobin 12.2 g/dL (12.0-16.0); Mean Cell Volume 96.3 fL (78-100); Mean Corpuscular Hemoglobin 30.3 pg (26-32); Mean Corpuscular Hgb Concent. 31.4 g/dL (32-36); Mean Platelet Volume 10.7 fL (7.5-11.0); Platelet Count 304 x10^3/uL (150-450); Red Blood Count 4.03 x10^6/uL (4.1-5.4); Red Cell Distribution Width 13.4 % (11.5-14.0); White Blood Count 14.4 x10^3/uL (4.0-10.5)
[2023-05-10 11:08] LABS: ANION GAP 14.3 MEQ/L (5-15); Calcium 8.9 mg/dL (8.4-10.2); Creatinine 1 0.74 mg/dL (0.52-1.04); EST GLOMERULAR FILTRATION RATE 80.2 ML/MIN; Potassium 4.5 mmol/L (3.5-5.1)
[2023-05-10] MEDS: Aplisol ID ONE ×2 (11:13→11:26)
[2023-05-10 12:33] LABS: Lymphocytes 12 % (24-44); Metamyelocyte 2 %; Monocyte 3 % (0.0-12.0); Neutrophils 83 % (36.0-66.0); Total Cells Counted 100
[2023-05-10 12:34] LABS: Platelet Estimate NORMAL (NORMAL)
[2023-05-11 06:41] LABS: ANION GAP 8.1 MEQ/L (5-15); Calcium 8.4 mg/dL (8.4-10.2); Creatinine 1 0.71 mg/dL (0.52-1.04); EST GLOMERULAR FILTRATION RATE 84.3 ML/MIN; Potassium 4.5 mmol/L (3.5-5.1)
[2023-05-11 09:42] LABS: Hematocrit 33.6 % (35-47); Hemoglobin 10.9 g/dL (12.0-16.0); Mean Cell Volume 97.1 fL (78-100); Mean Corpuscular Hemoglobin 31.5 pg (26-32); Mean Corpuscular Hgb Concent. 32.4 g/dL (32-36); Mean Platelet Volume 9.9 fL (7.5-11.0); Platelet Count 339 x10^3/uL (150-450); Red Blood Count 3.46 x10^6/uL (4.1-5.4); Red Cell Distribution Width 13.5 % (11.5-14.0); White Blood Count 10.3 x10^3/uL (4.0-10.5)
[2023-05-11] MEDS: Protonix 40MG Tablet PO SCH (10:00)
[2023-05-11 13:20] LABS: Eosinophil 2 % (0.00-3.0); Lymphocytes 7 % (24-44); Monocyte 5 % (0.0-12.0); Neutrophils 86 % (36.0-66.0); Platelet Estimate NORMAL (NORMAL); Total Cells Counted 100
[2023-05-11] MEDS: ZOCOR 20MG PO SCH (22:20)
[2023-05-12 06:23] LABS: Hematocrit 33.7 % (35-47); Hemoglobin 10.6 g/dL (12.0-16.0); Mean Cell Volume 98.3 fL (78-100); Mean Corpuscular Hemoglobin 30.9 pg (26-32); Mean Corpuscular Hgb Concent. 31.5 g/dL (32-36); Mean Platelet Volume 10.6 fL (7.5-11.0); Platelet Count 397 x10^3/uL (150-450); Red Blood Count 3.43 x10^6/uL (4.1-5.4); Red Cell Distribution Width 13.6 % (11.5-14.0); White Blood Count 11.5 x10^3/uL (4.0-10.5)
[2023-05-12 06:37] LABS: ANION GAP 7.8 MEQ/L (5-15); Calcium 8.5 mg/dL (8.4-10.2); Creatinine 1 0.9 mg/dL (0.52-1.04); EST GLOMERULAR FILTRATION RATE 63.4 ML/MIN; Potassium 3.6 mmol/L (3.5-5.1)
[2023-05-12 08:18] LABS: BAND 1 % (0.0-2.0); Eosinophil 1 % (0.00-3.0); Lymphocytes 11 % (24-44); Monocyte 4 % (0.0-12.0); Neutrophils 83 % (36.0-66.0); Platelet Estimate NORMAL (NORMAL); Total Cells Counted 100
[2023-05-12] MEDS: PATIENT OWN MEDICATION PO SCH ×6 (10:39→22:06)
[2023-05-12] MEDS: PATIENT OWN MEDICATION SL SCH (10:40)
[2023-05-13 04:43] LABS: Absolute Neutrophil Ct (ANC) 9.09 x10^3/uL (1.4-6.9); BASOPHIL % 0.7 % (0.0-0.4); Eosinophil % 3.7 % (0.00-5.0); Hematocrit 31.6 % (35-47); Hemoglobin 10.1 g/dL (12.0-16.0); IMMATURE GRAN # 0.69 x10^3u/L (0.00-0.03); IMMATURE GRAN % 5.1 % (0.00-0.4); Lymphocyte (Absolute #) 2.23 x10^3/uL (1.0-4.6); Lymphocytes % 16.5 % (24.0-44.0); Mean Cell Volume 97.2 fL (78-100); Mean Corpuscular Hemoglobin 31.1 pg (26-32); Mean Platelet Volume 9.9 fL (7.5-11.0); Monocyte (Absolute #) 0.92 x10^3/uL (0.0-1.3); Monocytes % 6.8 % (0.0-12.0); Neutrophil % 67.2 % (36.0-66.0); Platelet Count 431 x10^3/uL (150-450); Red Blood Count 3.25 x10^6/uL (4.1-5.4); Red Cell Distribution Width 13.8 % (11.5-14.0); White Blood Count 13.5 x10^3/uL (4.0-10.5)
[2023-05-13 05:13] LABS: Calcium 8.5 mg/dL (8.4-10.2); Creatinine 1 0.94 mg/dL (0.52-1.04); EST GLOMERULAR FILTRATION RATE 60.2 ML/MIN; Potassium 4.2 mmol/L (3.5-5.1)
[2023-05-13 07:23] LABS: Slide Review 1 YES
[2023-05-13] MEDS: Docusate Sodium 100 MG PO SCH (11:11)
--- NOTE | 2023-05-13 11:11 | PCM.SB.HP ---
Swing Bed H&P - Acute Care H&P in SB Record Acute H&P in Swing Bed Medical Record & valid with no change: Yes (1.5 Liter fluid restriction due to hyponatremia) - Acute Care H&P Revisions as follows General Appearance: no apparent distress Neurologic: alert, oriented x 3, cooperative Eye Exam: PERRL/EOMI Ears, Nose, Throat Exam: normal ENT inspection Neck Exam: normal inspection Respiratory: normal breath sounds, lungs clear Cardiovascular: regular rate/rhythm, normal heart sounds Gastrointestinal: soft, normal bowel sounds, other (bile tube drain - capped) Pelvic Exam: not done Rectal Exam: deferred Back Exam: normal inspection Extremity Exam: normal inspection Skin Exam: normal color - Acute Care ROS Revisions Constitutional: No Symptoms Eyes (ROS): No Symptoms Ears, Nose, & Throat: No Symptoms Respiratory: No Symptoms Cardiac: No Symptoms Abdominal/Gastrointestinal: No Symptoms Genitourinary Symptoms: No Symptoms Genitourinary Symptoms: No Symptoms Musculoskeletal: Back Pain Skin: No Symptoms Neurological: No Symptoms Psychological: No Symptoms Endocrine: No Symptoms Hematologic/Lymphatic: No Symptoms Immunological/Allergic: No Symptoms All Other Systems: Reviewed and Negative
[2023-05-13] MEDS: PATIENT OWN MEDICATION PO SCH (21:57)
[2023-05-13] MEDS ORDERED: PATIENT OWN MEDICATION PO SCH (22:00)
[2023-05-14 05:20] LABS: Absolute Neutrophil Ct (ANC) 10.21 x10^3/uL (1.4-6.9); BASOPHIL % 0.4 % (0.0-0.4); Basophil (Absolute #) 0.06 x10^3/uL (0-0.4); Eosinophil % 2.7 % (0.00-5.0); Eosinophil (Absolute #) 0.41 x10^3/uL (0-0.5); Hematocrit 30.5 % (35-47); Hemoglobin 9.5 g/dL (12.0-16.0); IMMATURE GRAN # 0.68 x10^3u/L (0.00-0.03); IMMATURE GRAN % 4.5 % (0.00-0.4); Lymphocyte (Absolute #) 2.71 x10^3/uL (1.0-4.6); Lymphocytes % 17.9 % (24.0-44.0); Mean Cell Volume 98.1 fL (78-100); Mean Corpuscular Hemoglobin 30.5 pg (26-32); Mean Corpuscular Hgb Concent. 31.1 g/dL (32-36); Mean Platelet Volume 10.3 fL (7.5-11.0); Monocyte (Absolute #) 1.05 x10^3/uL (0.0-1.3); Monocytes % 6.9 % (0.0-12.0); Neutrophil % 67.6 % (36.0-66.0); Platelet Count 483 x10^3/uL (150-450); Red Blood Count 3.11 x10^6/uL (4.1-5.4); Red Cell Distribution Width 13.8 % (11.5-14.0); White Blood Count 15.1 x10^3/uL (4.0-10.5)
[2023-05-14 05:39] LABS: ANION GAP 4.9 MEQ/L (5-15); Calcium 8.7 mg/dL (8.4-10.2); Creatinine 1 0.98 mg/dL (0.52-1.04); EST GLOMERULAR FILTRATION RATE 57.3 ML/MIN; Potassium 4.1 mmol/L (3.5-5.1)
[2023-05-14] MEDS: Sodium Chloride 0.9% 1000 ML 1,000 ML IV SCH (06:33)
[2023-05-14] MEDS: PATIENT OWN MEDICATION PO SCH (10:48)
[2023-05-14 20:17] LABS: Appearance Clear (Clear); Bilirubin Negative (Negative); Blood Negative (Negative); Glucose, Urine Negative (Negative); Ketones Negative (Negative); Leukocyte Esterase Small (Negative); Nitrite Negative (Negative); Protein,Urine Dip Negative (Negative); Specific Gravity 1.015 (1.005-1.030); Urobilinogen 0.2 mg/dL (0.2)
[2023-05-14 20:27] LABS: Bacteria None Seen /HPF (None Seen); Epithelial Cells Few /HPF (None Seen); RBC 0-2 /HPF (0-5)
[2023-05-14 20:33] LABS: ADD URINE CULTURE? YES (NO)
[2023-05-15 04:53] LABS: Absolute Neutrophil Ct (ANC) 8.77 x10^3/uL (1.4-6.9); BASOPHIL % 0.5 % (0.0-0.4); Basophil (Absolute #) 0.07 x10^3/uL (0-0.4); Eosinophil % 2.9 % (0.00-5.0); Eosinophil (Absolute #) 0.37 x10^3/uL (0-0.5); Hematocrit 30.7 % (35-47); Hemoglobin 9.7 g/dL (12.0-16.0); IMMATURE GRAN # 0.52 x10^3u/L (0.00-0.03); Lymphocyte (Absolute #) 2.07 x10^3/uL (1.0-4.6); Lymphocytes % 16.1 % (24.0-44.0); Mean Cell Volume 98.4 fL (78-100); Mean Corpuscular Hemoglobin 31.1 pg (26-32); Mean Corpuscular Hgb Concent. 31.6 g/dL (32-36); Monocyte (Absolute #) 1.04 x10^3/uL (0.0-1.3); Monocytes % 8.1 % (0.0-12.0); Neutrophil % 68.4 % (36.0-66.0); Platelet Count 503 x10^3/uL (150-450); Red Blood Count 3.12 x10^6/uL (4.1-5.4); Red Cell Distribution Width 13.9 % (11.5-14.0); White Blood Count 12.8 x10^3/uL (4.0-10.5)
[2023-05-15 05:16] LABS: ANION GAP 7.9 MEQ/L (5-15); Calcium 8.7 mg/dL (8.4-10.2); Creatinine 1 0.85 mg/dL (0.52-1.04); EST GLOMERULAR FILTRATION RATE 67.9 ML/MIN; Potassium 3.8 mmol/L (3.5-5.1)
[2023-05-15] MEDS: DIFLUCAN PO ONE (09:29)
[2023-05-16 05:01] LABS: Absolute Neutrophil Ct (ANC) 7.14 x10^3/uL (1.4-6.9); BASOPHIL % 0.7 % (0.0-0.4); Basophil (Absolute #) 0.08 x10^3/uL (0-0.4); Eosinophil (Absolute #) 0.35 x10^3/uL (0-0.5); Hematocrit 29.5 % (35-47); Hemoglobin 9.1 g/dL (12.0-16.0); IMMATURE GRAN # 0.36 x10^3u/L (0.00-0.03); IMMATURE GRAN % 3.1 % (0.00-0.4); Lymphocyte (Absolute #) 2.55 x10^3/uL (1.0-4.6); Mean Cell Volume 99.3 fL (78-100); Mean Corpuscular Hemoglobin 30.6 pg (26-32); Mean Corpuscular Hgb Concent. 30.8 g/dL (32-36); Mean Platelet Volume 10.1 fL (7.5-11.0); Monocytes % 9.5 % (0.0-12.0); Neutrophil % 61.7 % (36.0-66.0); Platelet Count 497 x10^3/uL (150-450); Red Blood Count 2.97 x10^6/uL (4.1-5.4); Red Cell Distribution Width 13.9 % (11.5-14.0); White Blood Count 11.6 x10^3/uL (4.0-10.5)
[2023-05-16 05:39] LABS: Calcium 8.7 mg/dL (8.4-10.2); Creatinine 1 0.74 mg/dL (0.52-1.04); EST GLOMERULAR FILTRATION RATE 80.2 ML/MIN; Potassium 4.1 mmol/L (3.5-5.1)
--- NOTE | 2023-05-16 10:45 | PCM.SB.HP ---
Swing Bed H&P - Acute Care H&P in SB Record Acute H&P in Swing Bed Medical Record & valid with no change: Yes (Patient doing well ) - Acute Care H&P Revisions as follows General Appearance: no apparent distress Neurologic: alert, oriented x 3, cooperative Eye Exam: PERRL/EOMI Ears, Nose, Throat Exam: normal ENT inspection Neck Exam: normal inspection Respiratory: normal breath sounds, lungs clear Cardiovascular: regular rate/rhythm, normal heart sounds Gastrointestinal: soft, normal bowel sounds Pelvic Exam: not done Rectal Exam: deferred Back Exam: normal inspection, vertebral tenderness Extremity Exam: normal inspection Skin Exam: normal color - Acute Care ROS Revisions Constitutional: No Symptoms Eyes (ROS): No Symptoms Ears, Nose, & Throat: No Symptoms Respiratory: No Symptoms Cardiac: No Symptoms Abdominal/Gastrointestinal: No Symptoms Genitourinary Symptoms: Vaginal Itching Genitourinary Symptoms: No Symptoms Musculoskeletal: Back Pain Skin: No Symptoms Neurological: No Symptoms Psychological: No Symptoms Endocrine: No Symptoms Hematologic/Lymphatic: No Symptoms Immunological/Allergic: No Symptoms
[2023-05-16] MEDS: Naprosyn 500 MG PO SCH (21:53)
[2023-05-17 04:53] LABS: Absolute Neutrophil Ct (ANC) 6.05 x10^3/uL (1.4-6.9); BASOPHIL % 0.7 % (0.0-0.4); Basophil (Absolute #) 0.07 x10^3/uL (0-0.4); Eosinophil % 3.1 % (0.00-5.0); Hematocrit 31.9 % (35-47); Hemoglobin 9.9 g/dL (12.0-16.0); IMMATURE GRAN # 0.26 x10^3u/L (0.00-0.03); IMMATURE GRAN % 2.7 % (0.00-0.4); Lymphocyte (Absolute #) 2.06 x10^3/uL (1.0-4.6); Lymphocytes % 21.2 % (24.0-44.0); Mean Cell Volume 99.7 fL (78-100); Mean Corpuscular Hemoglobin 30.9 pg (26-32); Mean Platelet Volume 10.2 fL (7.5-11.0); Monocyte (Absolute #) 0.99 x10^3/uL (0.0-1.3); Monocytes % 10.2 % (0.0-12.0); Neutrophil % 62.1 % (36.0-66.0); Platelet Count 559 x10^3/uL (150-450); Red Cell Distribution Width 14.1 % (11.5-14.0); White Blood Count 9.7 x10^3/uL (4.0-10.5)
[2023-05-17 05:05] LABS: ANION GAP 6.9 MEQ/L (5-15); Calcium 8.7 mg/dL (8.4-10.2); Creatinine 1 0.76 mg/dL (0.52-1.04); EST GLOMERULAR FILTRATION RATE 77.7 ML/MIN; Potassium 4.2 mmol/L (3.5-5.1)
[2023-05-17] MEDS ORDERED: Zofran 4 MG/2 ML VIAL ONE (08:41)
[2023-05-17] MEDS: Miralax Powder 17GM PACKET PO PRN (09:52)
[2023-05-18] MEDS: Lidoderm Patch 5% TOP SCH (16:14)
[2023-05-20] MEDS: Miralax Powder 17GM PACKET PO SCH (14:29)
[2023-05-20] MEDS: CITROMA 296 ML PO ONE (14:43)
[2023-05-21 06:55] LABS: Hematocrit 29.9 % (35-47); Hemoglobin 9.2 g/dL (12.0-16.0); Mean Cell Volume 100.7 fL (78-100); Mean Corpuscular Hgb Concent. 30.8 g/dL (32-36); Platelet Count 499 x10^3/uL (150-450); Red Blood Count 2.97 x10^6/uL (4.1-5.4); White Blood Count 11.3 x10^3/uL (4.0-10.5)
[2023-05-21 07:21] LABS: ALBUMIN 3.1 g/dL (3.5-5.0); ANION GAP 6.7 MEQ/L (5-15); BILIRUBIN,TOTAL 0.7 mg/dL (0.2-1.3); Calcium 8.8 mg/dL (8.4-10.2); Creatinine 1 0.82 mg/dL (0.52-1.04); EST GLOMERULAR FILTRATION RATE 70.9 ML/MIN; Potassium 4.5 mmol/L (3.5-5.1); Total Protein 5.8 g/dL (6.3-8.2)
--- NOTE | 2023-05-21 12:39 | PCM.SB.HP ---
Swing Bed H&P - Acute Care H&P in SB Record Acute H&P in Swing Bed Medical Record & valid with no change: Yes (Patient doing well no complaints) - Acute Care H&P Revisions as follows General Appearance: no apparent distress Neurologic: alert, oriented x 3, cooperative Eye Exam: PERRL/EOMI Ears, Nose, Throat Exam: normal ENT inspection Neck Exam: normal inspection Respiratory: normal breath sounds, lungs clear Cardiovascular: regular rate/rhythm, normal heart sounds Gastrointestinal: soft, normal bowel sounds Pelvic Exam: not done Male Genitalia: normal genitalia Rectal Exam: deferred Back Exam: normal inspection Extremity Exam: normal inspection Skin Exam: normal color - Acute Care ROS Revisions Constitutional: No Symptoms Eyes (ROS): No Symptoms Ears, Nose, & Throat: No Symptoms Cardiac: No Symptoms Abdominal/Gastrointestinal: No Symptoms Genitourinary Symptoms: No Symptoms Genitourinary Symptoms: No Symptoms Musculoskeletal: No Symptoms Skin: Other (bile tube drain/capped) Neurological: No Symptoms Psychological: No Symptoms Endocrine: No Symptoms Hematologic/Lymphatic: No Symptoms Immunological/Allergic: No Symptoms
--- NOTE | 2023-05-22 10:42 | PCM.NOTE ---
Date and Time: 05/21/23 1036 Subjective Assessment: Ms. 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 Patient states she is doing well. No complaints other than fatigue and weakness. Cefpodoxime and Flagyl completed 05/10/23. Patient working well with PT, plan for discharge this Saturday. Labs and vitals are stable. 05/21/23: Met with patient bedside. Endorses improvement in strength overall. Does endorse mild chronic back pain. Family present during interview, plan for a stair elevator to help with transport at home. Denies fever,cough, sob, cp, abdominal pain, MEANS, dizziness, N/V/D. <MADISYN FAROOQ - Last Filed: 05/22/23 10:36> Date and Time: 05/22/230 <SILVIANO KULKARNI - Last Filed: 05/22/23 22:10> - Review of Systems Constitutional: No Symptoms Eyes: No Symptoms Ears, Nose, & Throat: No Symptoms Respiratory: No Symptoms Cardiac: No Symptoms Abdominal/Gastrointestinal: No Symptoms, Other (bile duct tube drain/capped) Genitourinary Symptoms: No Symptoms Musculoskeletal: Back Pain (chronic) Skin: No Symptoms Neurological: No Symptoms Psychological: No Symptoms Endocrine: No Symptoms Hematologic/Lymphatic: No Symptoms Immunological/Allergic: No Symptoms <MADISYN FAROOQ - Last Filed: 05/22/23 10:36> Objective Exam General Appearance: no apparent distress Neurologic Exam: alert, oriented x 3, cooperative Skin Exam: normal color Wound Assessment: Skin/Wound Assessment Wound/Incision Assessment Start: 05/20/23 08:30 Text: Status: Active Freq: Q6H Protocol: Document 05/22/23 08:00 RB (Rec: 05/22/23 08:40 RB [id number]) Wound/Incision Assessment Right Lower Abdomen Wound Assessment Shift Assessment Wound Type Incision Dressing Status Dry & Intact Drainage Amount None Drainage Odor None/Absent Topical Solution/Irrigant Saline Irrigant Wound Photo Photo Taken No Eye Exam: PERRL Ears, Nose, Throat Exam: normal ENT inspection Neck Exam: normal inspection Respiratory Exam: normal breath sounds, lungs clear Cardiovascular Exam: regular rate/rhythm, normal heart sounds Gastrointestinal/Abdomen Exam: soft, normal bowel sounds Extremity Exam: normal inspection Back Exam: normal inspection Pelvic Exam: deferred Rectal Exam: deferred <MADISYN FAROOQ - Last Filed: 05/22/23 10:36> Wound Assessment: Skin/Wound Assessment Wound/Incision Assessment Start: 05/20/23 08:30 Text: Status: Active Freq: Q6H Protocol: Document 05/22/23 22:05 JV (Rec: 05/22/23 22:09 JV [id number]) Wound/Incision Assessment Right Lower Abdomen Wound Assessment Shift Assessment Wound Type Incision Dressing Status Dry & Intact Drainage Amount None Drainage Odor None/Absent Primary Dressing Gauze Pads Comment Dressing CDI Wound Photo Photo Taken No <SILVIANO KULKARNI - Last Filed: 05/22/23 22:10> OBJECTIVE DATA Vital Signs: Vital Signs - 24 hr Temp Pulse Resp BP Pulse Ox 05/22/23 08:00 98.0 F 84 16 134/62 96 05/21/23 19:50 98.1 F 80 16 120/56 97 Pain Assessment - Last Documented Pain Intensity 2 Pain Scale Used 0-10 Pain Scale Intake and Output: Intake & Output 05/19/23 05/20/23 05/21/23 05/22/23 11:59 11:59 11:59 11:59 Intake Total 100 180 Balance 100 180 Weight 94 kg Multi-Disciplinary Progress Notes: Multi-Disciplinary Progress Notes 05/22/23 10:28 Case Management Note by Mar Burnham S/W [facility]. THEY HAVE ACCEPTED PATIENT AND WILL PLAN TO SEE HER ON SATURDAY. THEY WILL NEED NOTIFIED AT TIME OF DC AT [phone]. THEY WILL NEED FAXED THE DC INSTRUCTIONS, DC MED LIST AND DC SUMMARY TO [phone] Initialized on 05/22/23 10:28 - END OF NOTE 05/22/23 09:57 Occupational Therapy Note by Glenda Landis OCCUPATIONAL THERAPY TREATMENT: UPON OT ARRIVAL, PATIENT MOBILIZING WITH RN SUPERVISION TO BATHROOM FOR TOILE TING TASK. OT ENCOURAGES BEENA TO COMPLETE TASK INDEPENDENTLY, BUT WILL PROVIDE ASSIST IF NEEDED TO FACILITATE SAFE DISCHARGE HOME (THERE WILL NOT BE ANY FAMILY PRESENT DURING DAY). BEENA REQUIRING SET UP ASSIST; HOWEVER, ABLE TO MANAGE ALL TOILETING NEEDS, HYGIENE, AND LB DRESSING WITH MOD INDEP. SHE RETURNED BACK TO RECLINER WITH SBA AND OT PROVIDED GERM-X FOR HYGIENE PURPOSES OF HANDS. RN IN ROOM TO PASS MEDICATION. BEENA THEN COMPELTED FUNCTIONAL MOBILITY WITH USE OF FWW WHILE EDUCATION PROVIDED ON SAFETY INSIGHT UPON RETURN TO HOME, TO SAFELY RETRIEVE ITEMS FROM CABINETS AND FRIDGE. SHE THEN ENGAGES IN 1 SET X 20 REPS OF CHEST PRESS, SCAPULAR ELEVATION, SCAPULAR RETRACTION, AND ARM CIRCLES (SHOULDERS IN ABDUCTION). BEENA REPORTS NO CONCERNS AT END OF SESSION WITH CALL LIGHT AND LAP TRAY IN GOOD POSITION TO PATIENT. EDUCATION PROVIDED ON THE ADL SESSION FOR TOMORROW (BATHING). Initialized on 05/22/23 09:57 - END OF NOTE 05/21/23 22:20 Physical Therapy Note by Louis(L#[id number])Sunshine 05/20/23 RX NOTE- PT. ASCENDED/DESCENDED 4 STEPS W/ HR AND MIN ASSIST. PT. REPORTS SHE WILL HAVE ASSIST OF FAMILY WHEN D/C HOME ON 05/24/23. Initialized on 05/21/23 22:20 - END OF NOTE 05/21/23 18:23 Occupational Therapy Note by Maik(L#[id number])Pilar Occupational Therapy Treatment Note ([id number]) Patient seated in recliner with BLE elevated and family member present upon OTR approach. Patient reported that she wants to rest and has been busy since she's been here. She was agreeable to functional transfers and mobility to address safety and independence with AD management and simulated IADL performance for prep to return home as planned on 05/24/23. Beena participated in functional mobility to bathroom using FWW to complete shower and toilet transfers with CGA during shower transfer and SBA during toilet transfer. OTR reviewed commode placement for home setup if needed. Beena then requested to perform functional mobility out of her room and OTR accompanied her providing verbal cues as needed to maintain safe distance to walker and educated her on AD safety when turning to leave all 4 legs of the walker on the floor including increased risk of fall or spillage of ADL items on walker tray when at home. She verbalized understanding and shared that a stair lift was being installed at home today and her family had ordered a walker tray for her. Beena was seated in recliner with BLE elevated and bedside table and call light within reach with family member present at session end. Will continue to see patient 1x/day during Swing Bed stay to address ADL safety and independence and AE/AD/DME training as needed. Initialized on 05/21/23 18:23 - END OF NOTE <MADISYN FAROOQ - Last Filed: 05/22/23 10:36> Vital Signs: Vital Signs - 24 hr Temp Pulse Resp BP Pulse Ox 05/22/23 08:00 98.0 F 84 16 134/62 96 Pain Assessment - Last Documented Pain Intensity 0 Pain Scale Used 0-10 Pain Scale Intake and Output: Intake & Output 05/20/23 05/21/23 05/22/23 05/23/23 11:59 11:59 11:59 11:59 Intake Total 100 180 240 Balance 100 180 240 Weight 94 kg Multi-Disciplinary Progress Notes: Multi-Disciplinary Progress Notes 05/22/23 13:53 Nutrition Note by Samara Scott F/u Note: House Reg diet with 2000ml/day FR; >50% po intake. adm weight 85.8kg; current weight 94kg. Labs 2/6= Na 132, BUN 39, alb 3.1, hgb 9.2, hct 29.9,mcv 100.7. goal of po intake >=75% not met consistently. Recommend to con't with current diet order and goal. Will con't to monitor and f/u prn. T.CARIN Scott Initialized on 05/22/23 13:53 - END OF NOTE 05/22/23 11:16 Case Management Note by Mar Burnham Addendum entered by Mar Burnham 05/22/23 11:47: ROMAINE ALSO REPORTS HER AND HERS WERE BOTH TAUGHT HOW TO FLUSH DRAIN AND UNDERSTAND HOW TO DO THAT. Original Note: S/W PATIENT- SHE CONTINUES TO BE HOPEFUL TO DC HOME ON SATURDAY. SHE CONTINUE TO WORK WITH PHYSICAL THERAPY. [facility] HAS BEEN SET UP. THEY WILL SEE PATIENT ON SATURDAY. S/W SUNSHINE FROM PT- PATIENT DOES NOT NEED ANY NEW EQUIPMENT AT TIME OF DC. PATIENT TO BE SENT HOME WITH SUPPLIES FOR FLUSHING HER DRAIN (7 DAYS WORTH). SHE HAS A FOLLOW UP ON AND CAN REQUEST MORE SUPPLIES AT THAT TIME IF NEEDED. PATIENT REPORTS SHE GOT A CHAIR LIFT INSTALLED AT HOME WELL. SHE PLANS TO RETURN HOME AT DC WITH HER FAMILY TO ASSIST. S/W [id number] ROMAINE WHO LIVES WITH PATIENT AND HELPS CARE FOR HER- SHE IS AGREEABLE TO DC PLAN OF SATURDAY. SHE WAS INSTRUCTED ON DC PLANS. SHE PLANS TO PICK PATIENT UP FOR DC Saturday Initialized on 05/22/23 11:16 - END OF NOTE 05/22/23 10:28 Case Management Note by Mar Burnham S/W [facility]. THEY HAVE ACCEPTED PATIENT AND WILL PLAN TO SEE HER ON SATURDAY. THEY WILL NEED NOTIFIED AT TIME OF DC AT [phone]. THEY WILL NEED FAXED THE DC INSTRUCTIONS, DC MED LIST AND DC SUMMARY TO [phone] Initialized on 05/22/23 10:28 - END OF NOTE 05/22/23 09:57 Occupational Therapy Note by Glenda Landis OCCUPATIONAL THERAPY TREATMENT: UPON OT ARRIVAL, PATIENT MOBILIZING WITH RN SUPERVISION TO BATHROOM FOR TOILETING TASK. OT ENCOURAGES BEENA TO COMPLETE TASK INDEPENDENTLY, BUT WILL PROVIDE ASSIST IF NEEDED TO FACILITATE SAFE DISCHARGE HOME (THERE WILL NOT BE ANY FAMILY PRESENT DURING DAY). BEENA REQUIRING SET UP ASSIST; HOWEVER, ABLE TO MANAGE ALL TOILETING NEEDS, HYGIENE, AND LB DRESSING WITH MOD INDEP. SHE RETURNED BACK TO RECLINER WITH SBA AND OT PROVIDED GERM-X FOR HYGIENE PURPOSES OF HANDS. RN IN ROOM TO PASS MEDICATION. BEENA THEN COMPELTED FUNCTIONAL MOBILITY WITH USE OF FWW WHILE EDUCATION PROVIDED ON SAFETY INSIGHT UPON RETURN TO HOME, TO SAFELY RETRIEVE ITEMS FROM CABINETS AND FRIDGE. SHE THEN ENGAGES IN 1 SET X 20 REPS OF CHEST PRESS, SCAPULAR ELEVATION, SCAPULAR RETRACTION, AND ARM CIRCLES (SHOULDERS IN ABDUCTION). BEENA REPORTS NO CONCERNS AT END OF SESSION WITH CALL LIGHT AND LAP TRAY IN GOOD POSITION TO PATIENT. EDUCATION PROVIDED ON THE ADL SESSION FOR TOMORROW (BATHING). Initialized on 05/22/23 09:57 - END OF NOTE 05/21/23 22:20 Physical Therapy Note by Louis(L#[id number])Sunshine 05/20/23 RX NOTE- PT. ASCENDED/DESCENDED 4 STEPS W/ HR AND MIN ASSIST. PT. REPORTS SHE WILL HAVE ASSIST OF FAMILY WHEN D/C HOME ON 05/24/23. Initialized on 05/21/23 22:20 - END OF NOTE <SILVIANO KULKARNI - Last Filed: 05/22/23 22:10> Assessment/Plan (1) Cholangitis Current Visit: Yes Status: Acute Assessment & Plan: -Follow up with [facility] next week s/p discharge -Antibiotics completed 05/10/23 -Bile duct tube/drain capped, continue flushes as directed Code(s): K83.09 - OTHER CHOLANGITIS (2) Weakness acquired in ICU Current Visit: Yes Status: Acute Assessment & Plan: -Continue IPPT, patient close to baseline, plan for d/c this Saturday Code(s): R53.1 - WEAKNESS (3) HTN (hypertension) Current Visit: Yes Status: Acute Assessment & Plan: -stable, continue home medications Code(s): I10 - ESSENTIAL (PRIMARY) HYPERTENSION (4) GERD (gastroesophageal reflux disease) Current Visit: Yes Status: Acute Assessment & Plan: -Continue home meds Code(s): K21.9 - GASTRO-ESOPHAGEAL REFLUX DISEASE WITHOUT ESOPHAGITIS (5) Hypothyroid Current Visit: Yes Status: Acute Assessment & Plan: -continue home medications Code(s): E03.9 - HYPOTHYROIDISM, UNSPECIFIED <MADISYN FAROOQ - Last Filed: 05/22/23 10:36> BLUE Encounter - BLUE Encounter Attestation BLUE Encounter Attestation: "KarenpersonalTYREE Jay on 05/21/2023 andhavediscussed pertinent aspects of their care with Madisyn Farooq and agree with the history, physical exam (any modifications based on my personal exam will be noted below), assessment, and plan as outlined in original note. Please see immediately below for my summary of findings and additional assessment and plan along with any meaningful corrections/explanations to the Subjective/Objective portions of the BLUE note will be noted." My portion of the encounter took place via telemedicine. <SILVIANO KULKARNI - Last Filed: 05/22/23 22:10>
[2023-05-23 04:59] LABS: Calcium 8.4 mg/dL (8.4-10.2); Creatinine 1 0.82 mg/dL (0.52-1.04); EST GLOMERULAR FILTRATION RATE 70.9 ML/MIN; Potassium 4.3 mmol/L (3.5-5.1)
[2023-05-23 22:33] VITALS: O2SAT 93
--- NOTE | 2023-05-24 05:29 | PCM.DS ---
Discharge Summary Date of Admission: 05/09/23 14:25 Date of Discharge: 05/24/23 Admitting Physician: YUDY TALLEY MD Primary Care Provider: WES ZAVALETA <MADISYN FAROOQ - Last Filed: 05/24/23 11:21> Date of Admission: 05/09/23 14:25 Admitting Physician: YUDY TALLEY MD Primary Care Provider: WES ZAVALETA <SILVIANO KULKARNI - Last Filed: 05/24/23 23:18> Allergies <MADISYN FAROOQ - Last Filed: 05/24/23 11:21> <SILVIANO KULKRANI - Last Filed: 05/24/23 23:18> Allergies Penicillins Allergy (Verified 05/09/23 15:24) Hospital Summary - Hospital Course Hospital Course: Subjective Assessment: Ms. 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 A HHC HAS BEEN SET UP. THEY WILL SEE PATIENT ON SATURDAY. Patient and have demonstrated knowledge regarding bile duct drain flush and instructions provided. Patient has follow up with [facility] next week. Physical therapy has cleared patient for discharge. CM to work on stair stepper. Patient states she is ready for discharge. Discharge Note New Diagnosis: Weakness 2/2 ICU/ septic shock New Medications: none Follow Up: PCP/[facility] Latest Assessment & Plan (1) Cholangitis Current Visit: Yes Status: Acute Assessment & Plan: -Follow up with [facility] next week s/p discharge -Antibiotics completed 05/10/23 -Bile duct tube/drain capped, continue flushes as directed Code(s): K83.09 - OTHER CHOLANGITIS (2) Weakness acquired in ICU Current Visit: Yes Status: Acute Assessment & Plan: -Continue IPPT, patient close to baseline, plan for d/c this Saturday Code(s): R53.1 - WEAKNESS (3) HTN (hypertension) Current Visit: Yes Status: Acute Assessment & Plan: -stable, continue home medications Code(s): I10 - ESSENTIAL (PRIMARY) HYPERTENSION (4) GERD (gastroesophageal reflux disease) Current Visit: Yes Status: Acute Assessment & Plan: -Continue home meds Code(s): K21.9 - GASTRO-ESOPHAGEAL REFLUX DISEASE WITHOUT ESOPHAGITIS (5) Hypothyroid Current Visit: Yes Status: Acute Assessment & Plan: -continue home medications Code(s): E03.9 - HYPOTHYROIDISM, UNSPECIFIED I spent 35 minutes [id number] with the patient on the day of discharge performing discharge exam, discussing hospital stay and discharge instructions with patient and caregivers, preparation of discharge records, prescriptions & referral forms and addressing any questions/concerns the patient had as documented above. - Vitals & Intake/Output Vital Signs: Vital Signs Temperature 97.9 F 05/23/23 22:33 Pulse Rate 79 05/23/23 22:33 Respiratory Rate 18 05/23/23 22:33 Blood Pressure 117/57 05/23/23 22:33 O2 Sat by Pulse Oximetry 93 L 05/23/23 22:33 Intake & Output: Intake & Output 05/21/23 05/22/23 05/23/23 05/24/23 11:59 11:59 11:59 11:59 Intake Total 180 240 120 Balance 180 240 120 - Lab Result Diagrams: 05/21/23 06:57 05/23/23 04:21 Micro Results-Entire Visit: Microbiology 05/14/23 Unknown Urine Culture - Final Clean Catch Midstream <10K NORMAL SKIN KALA PROBABLE SKIN CONTAMINANT - Procedures and Test Procedures and Tests throughout Hospitalization: Therapy Orders & Screens 05/09/23 11:40 PT Eval & Treat (MD Order) ONCE Reason for Eval:: SWINGBED Diagnosis: DECONDITIONING R/T SEPSIS/CHOLANGITIS OT Eval and Treat (MD Order) ONCE Comment: Physician Instructions: Reason For Exam: Diagnosis: DECONDITIONING D/T SEPSIS/CHOLANGITIS 05/09/23 15:47 PT Clarification Order ROUTINE Comment: Physician Instructions: Reason For Exam: PT Clarification: P.T. TO RX 5X/WK UNTIL D/C TO ADDRESS FUNCTIONAL MOBILITY AND GAIT TRAINING, THER EX, BALANCE ACTIVITIES AND ENDURANCE TRAINING TO MAXIMIZE FUNCTIONAL POTENTIAL FOR SAFE RETURN HOME. 05/10/23 11:56 OT Clarification Order ROUTINE Comment: Physician Instructions: Reason For Exam: OT Clarification: 5x/week to address strength and activity tolerance required for ADLS and functional transfers <MADISYN FAROOQ - Last Filed: 05/24/23 11:21> - Vitals & Intake/Output Vital Signs: Vital Signs Temperature 98.0 F 05/24/23 06:56 Pulse Rate 80 05/24/23 06:56 Respiratory Rate 16 05/24/23 06:56 Blood Pressure 146/60 05/24/23 06:56 O2 Sat by Pulse Oximetry 93 L 05/24/23 06:56 Intake & Output: Intake & Output 05/22/23 05/23/23 05/24/23 05/25/23 11:59 11:59 11:59 11:59 Intake Total 240 360 Balance 240 360 - Lab Result Diagrams: 05/21/23 06:57 05/23/23 04:21 Micro Results-Entire Visit: Microbiology 05/14/23 Unknown Urine Culture - Final Clean Catch Midstream <10K NORMAL SKIN KALA PROBABLE SKIN CONTAMINANT - Procedures and Test Procedures and Tests throughout Hospitalization: Therapy Orders & Screens 05/09/23 11:40 PT Eval & Treat (MD Order) ONCE Reason for Eval:: SWINGBED Diagnosis: DECONDITIONING R/T SEPSIS/CHOLANGITIS OT Eval and Treat (MD Order) ONCE Comment: Physician Instructions: Reason For Exam: Diagnosis: DECONDITIONING D/T SEPSIS/CHOLANGITIS 05/09/23 15:47 PT Clarification Order ROUTINE Comment: Physician Instructions: Reason For Exam: PT Clarification: P.T. TO RX 5X/WK UNTIL D/C TO ADDRESS FUNCTIONAL MOBILITY AND GAIT TRAINING, THER EX, BALANCE ACTIVITIES AND ENDURANCE TRAINING TO MAXIMIZE FUNCTIONAL POTENTIAL FOR SAFE RETURN HOME. 05/10/23 11:56 OT Clarification Order ROUTINE Comment: Physician Instructions: Reason For Exam: OT Clarification: 5x/week to address strength and activity tolerance required for ADLS and functional transfers <SILVIANO KULKARNI - Last Filed: 05/24/23 23:18> Discharge Exam General Appearance: no apparent distress Neurologic Exam: alert, oriented x 3, cooperative Eye Exam: PERRL Ears, Nose, Throat Exam: normal ENT inspection Neck Exam: normal inspection Respiratory Exam: normal breath sounds, lungs clear Cardiovascular Exam: regular rate/rhythm, normal heart sounds Gastrointestinal/Abdomen Exam: soft, normal bowel sounds Pelvic Exam: deferred Rectal Exam: deferred Back Exam: normal inspection Extremity Exam: normal inspection Skin Exam: normal color Wound Assessment: Skin/Wound Assessment Wound/Incision Assessment Start: 05/20/23 08:30 Text: Status: Active Freq: Q6H Protocol: Document 05/24/23 04:00 AB (Rec: 05/24/23 04:20 AB [id number]) Wound/Incision Assessment Right Lower Abdomen Wound Assessment Shift Assessment Wound Type Incision Dressing Status Dry & Intact Drainage Amount None Drainage Description Green Drainage Odor None/Absent General Appearance Clean/Dry Primary Dressing Gauze Pads Comment Dressing CDI, flushed per protocol Wound Photo Photo Taken No <MADISYN FAROOQ - Last Filed: 05/24/23 11:21> Final Diagnosis/Problem List - Final Discharge Diagnosis/Problem (1) Cholangitis Status: Acute Code(s): K83.09 - OTHER CHOLANGITIS (2) Weakness acquired in ICU Status: Acute Code(s): R53.1 - WEAKNESS (3) HTN (hypertension) Status: Acute Code(s): I10 - ESSENTIAL (PRIMARY) HYPERTENSION (4) GERD (gastroesophageal reflux disease) Status: Acute Code(s): K21.9 - GASTRO-ESOPHAGEAL REFLUX DISEASE WITHOUT ESOPHAGITIS (5) Hypothyroid Status: Acute Code(s): E03.9 - HYPOTHYROIDISM, UNSPECIFIED <MADISYN FAROOQ - Last Filed: 05/24/23 11:21> <MADISYN FAROOQ - Last Filed: 05/24/23 11:21> <SILVIANO KULKARNI - Last Filed: 05/24/23 23:18> - Discharge Disposition: HOME HEALTH SERVICE Condition: Stable Prescriptions: New Tramadol HCl 50 mg [Ultram 50 mg] 50 mg PO Q6HPRN PRN 3 Days #12 tablet PRN Reason: Pain Continue Cyanocobalamin (Vitamin B-12) [Vitamin B12] 2,500 mcg PO DAILY Flaxseed Oil/[place] 3,6,9 [Sv Flaxseed Oil 1,300 mg Sftgl] 1 each PO DAILY Cholecalciferol (Vitamin D3) [Vitamin D3] 1,000 unit PO DAILY Vitamin A 8,000 unit PO DAILY Ferrous Sulfate [Iron] 325 mg PO DAILY Aspirin 81 gm Chew [Baby Aspirin 81 mg Chew] 81 mg PO DAILY Multivitamin [Multivitamins] 1 each PO DAILY Ezetimibe 10 mg [Zetia 10 MG] 10 mg PO DAILY Naproxen 250 mg PO BID Carvedilol 12.5 mg [Coreg 12.5 mg] 25 mg PO BID Calcium Carbonate/Vitamin D3 [Calcium 500 mg Chewable Tablet] 1 tab PO DAILY Tumeric/Ging/[place]/Oreg/Capryl [Candicidal Capsule] 1 each PO DAILY PANTOPRAZOLE 40 mg Tablet [Protonix 40MG Tablet] 40 mg PO DAILY Losartan/Hydrochlorothiazide [Losartan-Hctz 100-12.5 mg Tab] 0.5 each PO SUMEET LY Levothyroxine Sodium 100 Mcg [Synthroid 100 Mcg] 100 mcg PO DAILY Cranberry Fruit Concentrate [Azo Cranberry] 250 mg PO DAILY Ubidecarenone/Vit E Acet [Co Q-10 100 mg Softgel] 1 each PO HS Clopidogrel Bisulfate [PLAVIX Tablet] 75 mg PO DAILY Chondroitin Sulfate/Turmeric [Invigoflex Cs 600-125 mg Cplt] 1 tab PO BID Biotin 1,000 mcg PO DAILY Atorvastatin Calcium [Lipitor 20MG Tablet] 20 mg PO DAILY Acetaminophen 500 mg [Tylenol Extra Strength 500 mg] 1,000 mg PO Q6HPRN PRN PRN Reason: Pain Calcium Polycarbophil 625 mg [Fibercon 625 mg] 625 mg PO HS Vit C/E/Zn/Coppr/Lutein/Zeaxan [Preservision Areds 2 Softgel] 1 cap PO BID Discontinued metroNIDAZOLE [Metronidazole] 500 mg PO Q12H Cefpodoxime Proxetil 200 mg [Vantin 200 mg] 200 mg PO BID Instructions: Generalized Weakness (DC) Additional Instructions: FLUSH BILIARY TUBE TWICE A DAY WITH 10 ML OF NORMAL SALINE. CLEAN YOUR TUBE/AREA AROUND TUBE WITH SOAP AND WATER. Patient has follow up with Interventional Radiology dept for a biliary drain re-placement on 08-06-23 @ 12:00. If you have any trouble before that date/time then call them at [phone] to get in sooner. They will contact you ahead of time with instructions for this apt. [facility] HAS BEEN SET UP FOR YOU. THEY WILL CALL TO ARRANGE A TIME TO COME SEE YOU. THEIR PHONE NUMBER IS [phone] IF YOU NEED ANYTHING BEFORE THEIR FIRST VISIT Follow up with: AUBREY POWERS, GISELA [NON-STAFF PHY W/O PRIVILEGES] - 05/27/23 3:45 pm (see [facility] for hospital f/u but see on Jun 11 for his appt as well) VICTORINO FLEMING MD [NON-STAFF PHY W/O PRIVILEGES] - 05/29/23 9:00 am WES ZAVALETA [Primary Care Provider] - 06/11/23 2:30 pm () BLUE Encounter - BLUE Encounter Attestation BLUE Encounter Attestation: "IhjustopersonalTYREE Jay andhavediscussed pertinent aspects of their care with Madisyn Luna agree with the history, physical exam (any modifications based on my personal exam will be noted below), assessment, and plan as outlined in original note. Please see immediately below for my summary of findings and additional assessment and plan along with any meaningful corrections/explanations to the Subjective/Objective portions of the BLUE note will be noted." My portion of the encounter took place via telemedicine. <SILVIANO KULKARNI - Last Filed: 05/24/23 23:18>
[2023-05-24 06:57] VITALS: BP 146/60; PULSE 80; RESP 16; TEMP 98
== END 2023-05-24 13:37 | disposition home health service (06) | DRG 445 ==
LOC: MED SURG 14:25
PROVIDERS: ADMIT Internal Medicine; ATTEND Internal Medicine
DX: K83.09 Other cholangitis (principal); E87.1 Hypo-osmolality and hyponatremia; R53.1 Weakness; I10 Essential (primary) hypertension; K21.9 Gastro-esophageal reflux disease without esophagitis; E03.9 Hypothyroidism, unspecified; E78.5 Hyperlipidemia, unspecified; E66.9 Obesity, unspecified; S31.113A Laceration without foreign body of abdominal wall, right lower quadrant without penetration into peritoneal cavity, initial encounter; Z86.73 Personal history of transient ischemic attack (TIA), and cerebral infarction without residual deficits; Z79.899 Other long term (current) drug therapy; Z20.828 Contact with and (suspected) exposure to other viral communicable diseases; Z98.84 Bariatric surgery status
CPT/HCPCS: 36415; 80048; 80053; 81001; 85025; 85027; 87086; J2405; Q3014; 97110-GP; A9270-GY

== ENCOUNTER 2024-04-20 11:58 | Emergency (ER) | payer MEDICARE ==
[2024-04-20 12:07] VITALS: TEMP 97
[2024-04-20 12:24] LABS: Absolute Neutrophil Ct (ANC) 14.58 x10^3/uL (1.56-6.13); BASOPHIL % 0.6 % (0.1-1.2); Basophil (Absolute #) 0.11 x10^3/uL (0.01-0.08); Eosinophil % 0.3 % (0.7-5.8); Eosinophil (Absolute #) 0.05 x10^3/uL (0.04-0.36); Hematocrit 37.1 % (34.1-44.9); IMMATURE GRAN # 0.69 x10^3u/L (0.001-0.031); IMMATURE GRAN % 3.9 % (0.001-0.429); Lymphocyte (Absolute #) 1.24 x10^3/uL (1.18-3.74); Mean Cell Volume 95.4 fL (79.4-94.8); Mean Corpuscular Hemoglobin 30.8 pg (25.6-32.2); Mean Corpuscular Hgb Concent. 32.3 g/dL (32.2-35.5); Mean Platelet Volume 9.5 fL (9.4-12.3); Monocyte (Absolute #) 0.95 x10^3/uL (0.24-0.86); Monocytes % 5.4 % (4.7-12.5); Neutrophil % 82.8 % (34.0-71.1); Platelet Count 494 x10^3/uL (182-369); Red Blood Count 3.89 x10^6/uL (3.93-5.22); Red Cell Distribution Width 13.7 % (11.7-14.4); White Blood Count 17.6 x10^3/uL (3.98-10.04)
--- NOTE | 2024-04-20 12:25 | ERPHSYRPT ---
- History of Present Illness Time Seen by Provider: 04/20/24 12:18 Source: patient Exam Limitations: no limitations Physician History: 83-year-old female presents to emergency department for evaluation of shortness of breath that started 2 days ago. Shortness of breath has been progressive. Patient denies a history of COPD. No chest pain. Patient was hypoxic upon ar [facility] to our ED. O2 sat was 82%. Patient reports that she has been coughing significantly. Cough sounds wet but nonproductive. Symptoms are mild to moderate in intensity. No specific worsening or improving factors. Patient otherwise feels well. She voices no other complaints or concerns at this time. Portions of this note were created with voice recognition technology. There may be grammatical, spelling, punctuation or sound alike errors Timing/Duration: today Activities at Onset: none Severity of Dyspnea-Max: moderate Severity of Dyspnea-Current: moderate Possible Cause: no prior episodes Modifying Factors: Improves With: activity Associated Symptoms: cough Allergies/Adverse Reactions: Penicillins Allergy (Verified 04/20/24 12:05) Home Medications: Aspirin 81 gm Chew [Baby Aspirin 81 mg Chew] 81 mg PO DAILY 06/02/16 [History] Calcium Carbonate/Vitamin D3 [Calcium 500 mg Chewable Tablet] 1 tab PO DAILY 06/02/16 [History] Carvedilol 12.5 mg [Coreg 12.5 mg] 25 mg PO BID 06/02/16 [History] Cholecalciferol (Vitamin D3) [Vitamin D3] 1,000 unit PO DAILY 06/02/16 [History] Cyanocobalamin (Vitamin B-12) [Vitamin B12] 2,500 mcg PO DAILY 06/02/16 [History] Ezetimibe 10 mg [Zetia 10 MG] 10 mg PO DAILY 06/02/16 [History] Ferrous Sulfate [Iron] 325 mg PO DAILY 06/02/16 [History] Flaxseed Oil/[place] 3,6,9 [Sv Flaxseed Oil 1,300 mg Sftgl] 1 each PO DAILY 06/02/16 [History] Multivitamin [Multivitamins] 1 each PO DAILY 06/02/16 [History] Naproxen 250 mg PO BID 06/02/16 [History] Vitamin A 8,000 unit PO DAILY 06/02/16 [History] Acetaminophen 500 mg [Tylenol Extra Strength 500 mg] 1,000 mg PO Q6HPRN PRN 05/09/23 [History] Atorvastatin Calcium [Lipitor 20MG Tablet] 20 mg PO DAILY 05/09/23 [History] Biotin 1,000 mcg PO DAILY 05/09/23 [History] Calcium Polycarbophil 625 mg [Fibercon 625 mg] 625 mg PO HS 05/09/23 [History] Chondroitin Sulfate/Turmeric [Invigoflex Cs 600-125 mg Cplt] 1 tab PO BID 05/09/23 [History] Clopidogrel Bisulfate [PLAVIX Tablet] 75 mg PO DAILY 05/09/23 [History] Cranberry Fruit Concentrate [Azo Cranberry] 250 mg PO DAILY 05/09/23 [History] Levothyroxine Sodium 100 Mcg [Synthroid 100 Mcg] 100 mcg PO DAILY 05/09/23 [History] Losartan/Hydrochlorothiazide [Losartan-Hctz 100-12.5 mg Tab] 0.5 each PO DAILY 05/09/23 [History] PANTOPRAZOLE 40 mg Tablet [Protonix 40MG Tablet] 40 mg PO DAILY 05/09/23 [History] Tumeric/Ging/Lilly/Oreg/Capryl [Candicidal Capsule] 1 each PO DAILY 05/09/23 [History] Ubidecarenone/Vit E Acet [Co Q-10 100 mg Softgel] 1 each PO HS 05/09/23 [History] Vit C/E/Zn/Coppr/Lutein/Zeaxan [Preservision Areds 2 Softgel] 1 cap PO BID 05/12/23 [History] Hx Tetanus, Diphtheria Vaccination/Date Given: Yes Hx Influenza Vaccination/Date Given: Yes Hx Pneumococcal Vaccination/Date Given: Yes - Review of Systems Constitutional: No Symptoms, No Fever, No Chills Eyes: No Symptoms Ears, Nose, & Throat: No Symptoms Respiratory: No Symptoms, No Cough, No Dyspnea Cardiac: No Symptoms, No Chest Pain, No Edema, No Syncope Abdominal/Gastrointestinal: No Symptoms, No Abdominal Pain, No Nausea, No Vomiting, No Diarrhea Genitourinary Symptoms: No Symptoms, No Dysuria Musculoskeletal: No Symptoms, No Back Pain, No Neck Pain Skin: No Symptoms, No Rash Neurological: No Symptoms, No Dizziness, No Focal Weakness, No Sensory Changes Psychological: No Symptoms Endocrine: No Symptoms Hematologic/Lymphatic: No Symptoms Immunological/Allergic: No Symptoms All Other Systems: Reviewed and Negative - Past Medical History Pertinent Past Medical History: Yes Neurological History: Stroke ENT History: Cataracts Cardiac History: Arrhythmia, High Cholesterol, Hypertension Respiratory History: No Pertinent History Endocrine Medical History: Hypothyroidism Musculoskeletal History: Degenerative Disk Disease, Osteoarthritis GI Medical History: GERD, Gallbladder Disease, Hernia History: No Pertinent History Psycho-Social History: No Pertinent History Female Reproductive Disorders: Breast Cancer Other Medical History: REPORTS CVA AFFECTED SKIN PRIMARILY WITH NUMBNESS BUT 90% RESOLVED. PMHX: GERD, BREAST CA (LUMPECTOMY LEFT AND RADIATION) 1999, LEFT TKR 2011, GASTRIC BYPASS. Bile Duct infection. Hiatal Hernia - Past Surgical History Past Surgical History: Yes Neuro Surgical History: No Pertinent History Cardiac: No Pertinent History Respiratory: No Pertinent History Gastrointestinal: Cholecystectomy Musculoskeletal: Orthopedic Surgery Female Surgical History: Hysterectomy, Lumpectomy Other Surgical History: gastric bypass, carpal tunnel, left knee replacement, bile duct - Social History Smoking Status: Former smoker Exposure to second hand smoke: No Drug Use: none Patient Lives Alone: No - Social Determinants of Health Will the patient participate in the screening: Yes Do you worry about a steady place to live?: No In the past 12 months,have you had to go without utilities?: No Transportation Issues: No Has anyone in your support network made you feel unsafe?: No Have you or anyone in your house had to go without enough: No - Nursing Vital Signs Nursing Vital Signs: Initial Vital Signs Blood Pressure 159/102 04/20/24 12:04 O2 Sat by Pulse Oximetry 96 04/20/24 12:04 Pain Scale Pain Intensity 2 - Physical Exam General Appearance: no apparent distress, alert Eye Exam: PERRL/EOMI, eyes nml inspection Ears, Nose, Throat Exam: hearing grossly normal, normal ENT inspection, normal pharynx Neck Exam: normal inspection, supple Respiratory Exam: diminished breath sounds, rhonchi (Rhonchi at bilateral bases) Cardiovascular/Chest Exam: normal heart sounds, regular rate/rhythm Abdominal/Gastrointestinal Exam: soft, No tenderness, No distention, No mass Extremity Exam: non-tender, normal range of motion, normal inspection, no calf tenderness, no pedal edema Neurologic Exam: alert, oriented x 3, cooperative, publishing editor II-XII nml as tested, sensation nml, No motor deficits Skin Exam: normal color, warm, No dry SpO2 Interpretation: normal SpO2: 88 O2 Delivery: Room Air - Course Nursing assessment & vital signs reviewed: Yes - CT Exams Chest CT Interpretation: Tele-radiologist Report (No PE. Endobronchial plugging versus aspiration) Ordered Tests: Medication Summary Discontinued Medications Generic Name Dose Route Start Last Admin Trade Name Freq PRN Reason Stop Dose Admin Levofloxacin/Dextrose 500 mg in 100 mls @ 100 mls/hr 04/20/24 16:01 04/20/24 16:20 Levofloxacin 500mg/100ml D5w IV 04/20/24 17:00 100 ml/hr STAT STA 100 mls/hr Administration Levofloxacin/Dextrose Confirm 04/20/24 16:16 Levofloxacin 500mg/100ml D5w Administered 04/20/24 16:17 Dose 500 mg in 100 mls @ ud IV .twidox ONE Lab/Rad Data: Laboratory Result Diagrams 04/20/24 12:05 04/20/24 12:05 Laboratory Results 04/20/24 04/20/24 04/20/24 Range/Units 16:20 15:23 12:30 WBC (3.98-10.04) x10^3/uL RBC (3.93-5.22) x10^6/uL Hgb (11.2-15.7) g/dL Hct (34.1-44.9) % MCV (79.4-94.8) fL MCH (25.6-32.2) pg MCHC (32.2-35.5) g/dL RDW (11.7-14.4) % Plt Count (182-369) x10^3/uL MPV (9.4-12.3) fL Gran % (34.0-71.1) % Immature Gran % (Auto) (0.001-0.429) % Nucleat RBC Rel Count (0.00-0.2) % Eos # (Auto) (0.04-0.36) x10^3/uL Immature Gran # (Auto) (0.001-0.031) x10^3u/L Absolute Lymphs (auto) (1.18-3.74) x10^3/uL Absolute Monos (auto) (0.24-0.86) x10^3/uL Absolute Nucleated RBC (0.00-0.012) x10^3u/L Lymphocytes % (19.3-51.7) % Monocytes % (4.7-12.5) % Eosinophils % (0.7-5.8) % Basophils % (0.1-1.2) % Absolute Granulocytes (1.56-6.13) x10^3/uL Basophils # (0.01-0.08) x10^3/uL D-Dimer (0.0-0.50) mg/L Sodium (135-145) mmol/L Potassium (3.5-5.1) mmol/L Chloride (98-107) mmol/L Carbon Dioxide (22-30) mmol/L Anion Gap (5-15) MEQ/L BUN (7-17) mg/dL Creatinine (0.52-1.04) mg/dL Estimated GFR ML/MIN Glucose (74-106) mg/dL Calcium (8.4-10.2) mg/dL Total Bilirubin (0.2-1.3) mg/dL AST (14-36) U/L ALT (0-35) U/L Alkaline Phosphatase (38-126) U/L Troponin I 0.038 H* (0.000-0.033) ng/mL NT-Pro-B Natriuret Pep (<300) pg/mL Serum Total Protein (6.3-8.2) g/dL Albumin (3.5-5.0) g/dL Urine Color Yellow (Yellow) Urine Appearance Clear (Clear) Urine pH 5.0 (4.6-8.0) Ur Specific [place] >=1.030 A (1.005-1.030) Urine Protein Trace A (Negative) Urine Glucose (UA) Negative (Negative) mg/dL Urine Ketones Negative (Negative) Urine Blood Negative (Negative) Urine Nitrite Negative (Negative) Urine Bilirubin Negative (Negative) Urine Urobilinogen 0.2 (0.2) mg/dL Ur Leukocyte Esterase Negative (Negative) U Hyaline Cast (Auto) 3-5 A (0-2) /LPF Urine Microscopic RBC 3-5 (0-5) /HPF Urine Microscopic WBC 0-2 (0-5) /HPF Ur Epithelial Cells Few (None Seen) /HPF Urine Bacteria None Seen (None Seen) /HPF Urine Culture Reflexed NO (NO) Influenza Type A Ag NEGATIVE (NEGATIVE) Influenza Type B Ag NEGATIVE (NEGATIVE) RSV (PCR) NEGATIVE (NEGATIVE) SARS-CoV-2 (PCR) NEGATIVE (NEGATIVE) 04/20/24 04/20/24 04/20/24 Range/Units 12:05 12:05 12:05 WBC (3.98-10.04) x10^3/uL RBC (3.93-5.22) x10^6/uL Hgb (11.2-15.7) g/dL Hct (34.1-44.9) % MCV (79.4-94.8) fL MCH (25.6-32.2) pg MCHC (32.2-35.5) g/dL RDW (11.7-14.4) % Plt Count (182-369) x10^3/uL MPV (9.4-12.3) fL Gran % (34.0-71.1) % Immature Gran % (Auto) (0.001-0.429) % Nucleat RBC Rel Count (0.00-0.2) % Eos # (Auto) (0.04-0.36) x10^3/uL Immature Gran # (Auto) (0.001-0.031) x10^3u/L Absolute Lymphs (auto) (1.18-3.74) x10^3/uL Absolute Monos (auto) (0.24-0.86) x10^3/uL Absolute Nucleated RBC (0.00-0.012) x10^3u/L Lymphocytes % (19.3-51.7) % Monocytes % (4.7-12.5) % Eosinophils % (0.7-5.8) % Basophils % (0.1-1.2) % Absolute Granulocytes (1.56-6.13) x10^3/uL Basophils # (0.01-0.08) x10^3/uL D-Dimer 2.34 H* (0.0-0.50) mg/L Sodium 137 (135-145) mmol/L Potassium 4.4 (3.5-5.1) mmol/L Chloride 103 (98-107) mmol/L Carbon Dioxide 28 (22-30) mmol/L Anion Gap 10.2 (5-15) MEQ/L BUN 47 H (7-17) mg/dL Creatinine 1.19 H (0.52-1.04) mg/dL Estimated GFR 45.1 ML/MIN Glucose 144 H (74-106) mg/dL Calcium 8.8 (8.4-10.2) mg/dL Total Bilirubin 0.80 (0.2-1.3) mg/dL AST 45 H (14-36) U/L ALT 39 H (0-35) U/L Alkaline Phosphatase 109 (38-126) U/L Troponin I 0.015 (0.000-0.033) ng/mL NT-Pro-B Natriuret Pep 4970 (<300) pg/mL Serum Total Protein 6.9 (6.3-8.2) g/dL Albumin 3.6 (3.5-5.0) g/dL Urine Color (Yellow) Urine Appearance (Clear) Urine pH (4.6-8.0) Ur Specific [place] (1.005-1.030) Urine Protein (Negative) Urine Glucose (UA) (Negative) mg/dL Urine Ketones (Negative) Urine Blood (Negative) Urine Nitrite (Negative) Urine Bilirubin (Negative) Urine Urobilinogen (0.2) mg/dL Ur Leukocyte Esterase (Negative) U Hyaline Cast (Auto) (0-2) /LPF Urine Microscopic RBC (0-5) /HPF Urine Microscopic WBC (0-5) /HPF Ur Epithelial Cells (None Seen) /HPF Urine Bacteria (None Seen) /HPF Urine Culture Reflexed (NO) Influenza Type A Ag (NEGATIVE) Influenza Type B Ag (NEGATIVE) RSV (PCR) (NEGATIVE) SARS-CoV-2 (PCR) (NEGATIVE) 04/20/24 Range/Units 12:05 WBC 17.6 H (3.98-10.04) x10^3/uL RBC 3.89 L (3.93-5.22) x10^6/uL Hgb 12.0 (11.2-15.7) g/dL Hct 37.1 (34.1-44.9) % MCV 95.4 H (79.4-94.8) fL MCH 30.8 (25.6-32.2) pg MCHC 32.3 (32.2-35.5) g/dL RDW 13.7 (11.7-14.4) % Plt Count 494 H (182-369) x10^3/uL MPV 9.5 (9.4-12.3) fL Gran % 82.8 H (34.0-71.1) % Immature Gran % (Auto) 3.9 H (0.001-0.429) % Nucleat RBC Rel Count 0.0 (0.00-0.2) % Eos # (Auto) 0.05 (0.04-0.36) x10^3/uL Immature Gran # (Auto) 0.69 H (0.001-0.031) x10^3u/L Absolute Lymphs (auto) 1.24 (1.18-3.74) x10^3/uL Absolute Monos (auto) 0.95 H (0.24-0.86) x10^3/uL Absolute Nucleated RBC 0.00 (0.00-0.012) x10^3u/L Lymphocytes % 7.0 L (19.3-51.7) % Monocytes % 5.4 (4.7-12.5) % Eosinophils % 0.3 L (0.7-5.8) % Basophils % 0.6 (0.1-1.2) % Absolute Granulocytes 14.58 H (1.56-6.13) x10^3/uL Basophils # 0.11 H (0.01-0.08) x10^3/uL D-Dimer (0.0-0.50) mg/L Sodium (135-145) mmol/L Potassium (3.5-5.1) mmol/L Chloride (98-107) mmol/L Carbon Dioxide (22-30) mmol/L Anion Gap (5-15) MEQ/L BUN (7-17) mg/dL Creatinine (0.52-1.04) mg/dL Estimated GFR ML/MIN Glucose (74-106) mg/dL Calcium (8.4-10.2) mg/dL Total Bilirubin (0.2-1.3) mg/dL AST (14-36) U/L ALT (0-35) U/L Alkaline Phosphatase (38-126) U/L Troponin I (0.000-0.033) ng/mL NT-Pro-B Natriuret Pep (<300) pg/mL Serum Total Protein (6.3-8.2) g/dL Albumin (3.5-5.0) g/dL Urine Color (Yellow) Urine Appearance (Clear) Urine pH (4.6-8.0) Ur Specific [place] (1.005-1.030) Urine Protein (Negative) Urine Glucose (UA) (Negative) mg/dL Urine Ketones (Negative) Urine Blood (Negative) Urine Nitrite (Negative) Urine Bilirubin (Negative) Urine Urobilinogen (0.2) mg/dL Ur Leukocyte Esterase (Negative) U Hyaline Cast (Auto) (0-2) /LPF Urine Microscopic RBC (0-5) /HPF Urine Microscopic WBC (0-5) /HPF Ur Epithelial Cells (None Seen) /HPF Urine Bacteria (None Seen) /HPF Urine Culture Reflexed (NO) Influenza Type A Ag (NEGATIVE) Influenza Type B Ag (NEGATIVE) RSV (PCR) (NEGATIVE) SARS-CoV-2 (PCR) (NEGATIVE) - Progress Progress: improved Air Movement: good Progress Note: Spoke to Regarding admission. We discussed the findings on the CAT scan. He seems to feel patient will require a bronchoscopy which is a service we do not offer here. He advised transfer. I spoke to Dr. Ray at 4:21 PM 04/20/24 16:[address] Milligan ER physician at [facility]. Dr. Milligan accepted patient at 4:48 PM. Plan of care discussed with patient. She agrees to transfer to [facility] for further evaluation and treatment. Portions of this note were created with voice recognition technology. There may be grammatical, spelling, punctuation or sound alike errors 04/20/24 16:48 Complexity problem addressed is moderate acute complicated no critical care time. Complex of data reviewed and analyzed is extensive. Test ordered test reviewed results analyzed and correlated clinically with history and physical exam. Risk of complication and or risk of morbidity/mortality of patient management is high. Patient requires transfer to higher level of care. Vital stable. Time spent to transfer patient is approximately 20 minutes. Plan of care established for shared decision making. No social determinants of health present to impede follow-up. Portions of this note were created with voice recognition technology. There may be grammatical, spelling, punctuation or sound alike errors 04/21/24 19:26 Blood Culture(s) Obtained: Yes Antibiotics given: Yes Counseled pt/family regarding: lab results, diagnosis, rad results - Departure Departure Disposition: Observation Clinical Impression: SOB (shortness of breath), Hypoxia, Leukocytosis, Cough, Abnormal chest CT Condition: Stable Critical Care Time: No Referrals: WES ZAVALETA [Primary Care Provider] - Follow up/PCP as directed
[2024-04-20 12:50] LABS: ALBUMIN 3.6 g/dL (3.5-5.0); ANION GAP 10.2 MEQ/L (5-15); BILIRUBIN,TOTAL 0.8 mg/dL (0.2-1.3); Calcium 8.8 mg/dL (8.4-10.2); Creatinine 1 1.19 mg/dL (0.52-1.04); EST GLOMERULAR FILTRATION RATE 45.1 ML/MIN; Potassium 4.4 mmol/L (3.5-5.1); Total Protein 6.9 g/dL (6.3-8.2)
[2024-04-20 13:17] LABS: INFLUENZA A NEGATIVE (NEGATIVE); INFLUENZA B NEGATIVE (NEGATIVE); RESPIRATORY SYNCTIAL VIRUS NEGATIVE (NEGATIVE); SARS-CoV-2 Xpert Express NEGATIVE (NEGATIVE)
--- NOTE | 2024-04-20 15:21 | XRAY ---
Indication: Short of breath. Multiple contiguous axial images obtained through the chest using 80 cc Isovue 370 contrast and PE protocol. Comparison: None Good opacification pulmonary arteries including lobar and segmental branches. No pulmonary embolus. Heart not enlarged. Aorta is mildly arteriosclerotic without aneurysm/dissection. Small subcarinal and right hilar calcified nodes. No pathologic mediastinal/hilar lymphadenopathy. Near-complete opacification distal right main bronchus extending into right middle and right lower lobes with distal postobstructive atelectasis. Additional near-complete opacification lateral segments left lower lobe with postobstructive atelectasis. Minimal patchy posterior right upper lobe airspace disease. Tiny bilateral effusions. Bony thorax intact with osteopenia, mild/moderate degenerative changes throughout thoracolumbar spine, and incompletely visualized lumbar levoscoliosis. Previous right mastectomy. Limited upper abdomen demonstrates cholecystectomy, fatty liver, nonobstructing left renal micro-calculi, 1.3 cm right mid renal cyst, and tiny hepatic/splenic calcific granulomas. Impression: 1. Negative pulmonary embolus. 2. Near-complete opacification distal right mainstem bronchus extending into right middle and right lower lobes with post obstructive atelectasis. Additional opacification lateral segment left lower lobe bronchus with postobstructive atelectasis. Rule out endobronchial mucous plugging versus aspiration. Endobronchial mass not completely excluded. 3. Tiny bilateral effusions. 4. Chronic findings including arteriosclerotic disease, chronic bony findings, fatty liver, nonobstructing left renal micro-calculi, right renal cyst, right mastectomy, and old granulomatous disease.
[2024-04-20 15:40] LABS: Appearance Clear (Clear); Bacteria None Seen /HPF (None Seen); Bilirubin Negative (Negative); Blood Negative (Negative); Epithelial Cells Few /HPF (None Seen); Glucose, Urine Negative (Negative); Ketones Negative (Negative); Leukocyte Esterase Negative (Negative); Nitrite Negative (Negative); Protein,Urine Dip Trace (Negative); Specific Gravity >=1.030 (1.005-1.030); Urobilinogen 0.2 mg/dL (0.2); WBC 0-2 /HPF (0-5)
[2024-04-20 16:04] VITALS: O2SAT 88
[2024-04-20] MEDS ORDERED: Levofloxacin 500MG/100ML D5W 500 MG/100 ML BAG IV ONE (16:16)
[2024-04-20] MEDS: Levofloxacin 500MG/100ML D5W 500 MG/100 ML BAG IV STA (16:20)
[2024-04-20 16:59] VITALS: BP 147/95; PULSE 112; RESP 20
== END 2024-04-20 17:45 | disposition short-term general hospital (02) ==
LOC: ED 11:58
DX: R09.02 Hypoxemia (principal); D72.829 Elevated white blood cell count, unspecified; R05.9 Cough, unspecified; R91.8 Other nonspecific abnormal finding of lung field; R06.02 Shortness of breath; J18.9 Pneumonia, unspecified organism; E78.5 Hyperlipidemia, unspecified; I10 Essential (primary) hypertension; Z79.02 Long term (current) use of antithrombotics/antiplatelets; Z79.899 Other long term (current) drug therapy
CPT/HCPCS: 0241U; 36415; 71260; 80053; 81001; 83880; 84484; 85025; 85379; 87040; 93005; 93041; 94760; 99285; J1956

== ENCOUNTER 2024-05-15 19:05 | Inpatient (IN) | payer MEDICARE ==
--- NOTE | 2024-05-15 19:14 | ERPHSYRPT ---
- History of Present Illness Time Seen by Provider: 05/15/24 19:13 Source: patient, family Exam Limitations: no limitations Physician History: This is an 83-year-old white female patient brought in by private vehicle secondary to shortness of breath, productive cough of white sputum and 4 diarrheal stools since 9 AM this morning. Patient also has noted increased swelling in her bilateral feet and ankles. Patient has a history of hypertension, arrhythmia on Plavix, hypothyroidism, stroke in the past, hyperlipidemia, degenerative disc disease and gastroesophageal reflux disease. Patient denies chest pain. She denies abdominal pain. She has had no vomiting symptoms. Patient's room air oxygen saturation on arrival was 88%. However by the time I evaluated this patient, her room air oxygen saturation levels are 93 to 94%. Timing/Duration: today Severity of Dyspnea-Max: mild (To moderate) Severity of Dyspnea-Current: mild Possible Cause: no prior episodes Modifying Factors: Improves With: coughing, deep breath Associated Symptoms: cough, edema, ankle swelling, productive cough (Whitish sputum), No chest pain/discomfort Allergies/Adverse Reactions: Penicillins Allergy (Verified 05/15/24 19:18) Home Medications: Calcium Carbonate/Vitamin D3 [Calcium 500 mg Chewable Tablet] 1 tab PO BID 06/02/16 [History] Carvedilol 12.5 mg [Coreg 12.5 mg] 25 mg PO BID 06/02/16 [History] Cholecalciferol (Vitamin D3) [Vitamin D3] 1,000 unit PO HS 06/02/16 [History] Cyanocobalamin (Vitamin B-12) [Vitamin B12] 2,500 mcg SL BID 06/02/16 [History] Ezetimibe 10 mg [Zetia 10 MG] 10 mg PO DAILY 06/02/16 [History] Ferrous Sulfate [Iron] 325 mg PO DAILY 06/02/16 [History] Flaxseed Oil/[place] 3,6,9 [Sv Flaxseed Oil 1,300 mg Sftgl] 1 each PO HS 06/02/16 [History] Multivitamin [Multivitamins] 1 each PO DAILY 06/02/16 [History] Vitamin A 8,000 unit PO HS 06/02/16 [History] Acetaminophen 500 mg [Tylenol Extra Strength 500 mg] 1,000 mg PO Q6HPRN PRN 05/09/23 [History] Atorvastatin Calcium [Lipitor 20MG Tablet] 20 mg PO HS 05/09/23 [History] Biotin 1,000 mcg PO HS 05/09/23 [History] Calcium Polycarbophil 625 mg [Fibercon 625 mg] 625 mg PO HS 05/09/23 [History] Clopidogrel Bisulfate [PLAVIX Tablet] 75 mg PO DAILY 05/09/23 [History] Cranberry Fruit Concentrate [Azo Cranberry] 250 mg PO HS 05/09/23 [History] Levothyroxine Sodium 100 Mcg [Synthroid 100 Mcg] 100 mcg PO DAILY 05/09/23 [History] Losartan/Hydrochlorothiazide [Losartan-Hctz 100-12.5 mg Tab] 1 each PO DAILY 05/09/23 [History] PANTOPRAZOLE 40 mg Tablet [Protonix 40MG Tablet] 40 mg PO DAILY 05/09/23 [History] Tumeric/Ging/[place]/Oreg/Capryl [Candicidal Capsule] 1 each PO HS 05/09/23 [History] Ubidecarenone/Vit E Acet [Co Q-10 100 mg Softgel] 1 each PO HS 05/09/23 [H istory] Vit C/E/Zn/Coppr/Lutein/Zeaxan [Preservision Areds 2 Softgel] 1 cap PO BID 05/12/23 [History] Hx Tetanus, Diphtheria Vaccination/Date Given: Yes Hx Influenza Vaccination/Date Given: Yes Hx Pneumococcal Vaccination/Date Given: Yes Travel Risk - International Travel Have you traveled outside of the country in past 3 weeks: No - Emerging Infectious Disease Are you exhibiting symptoms associated with any current EIDs: Yes Symptoms: Cough: New Onset, Headaches/Body Aches/ - Review of Systems Constitutional: No Symptoms Eyes: No Symptoms Respiratory: Cough, Dyspnea Cardiac: No Symptoms, No Chest Pain Abdominal/Gastrointestinal: No Symptoms Genitourinary Symptoms: No Symptoms Musculoskeletal: No Symptoms Skin: No Symptoms Neurological: No Symptoms Psychological: No Symptoms Endocrine: No Symptoms Hematologic/Lymphatic: No Symptoms Immunological/Allergic: No Symptoms All Other Systems: Reviewed and Negative - Past Medical History Pertinent Past Medical History: Yes Neurological History: Stroke ENT History: Cataracts Cardiac History: Arrhythmia, High Cholesterol, Hypertension Respiratory History: No Pertinent History Endocrine Medical History: Hypothyroidism Musculoskeletal History: Degenerative Disk Disease, Osteoarthritis GI Medical History: GERD, Gallbladder Disease, Hernia History: No Pertinent History Psycho-Social History: No Pertinent History Female Reproductive Disorders: Breast Cancer Other Medical History: REPORTS CVA AFFECTED SKIN PRIMARILY WITH NUMBNESS BUT 90% RESOLVED. PMHX: GERD, BREAST CA (LUMPECTOMY LEFT AND RADIATION) 1999, LEFT TKR 2011, GASTRIC BYPASS. Bile Duct infection. Hiatal Hernia - Past Surgical History Past Surgical History: Yes Neuro Surgical History: No Pertinent History Cardiac: No Pertinent History Respiratory: No Pertinent History Gastrointestinal: Cholecystectomy Musculoskeletal: Orthopedic Surgery Female Surgical History: Hysterectomy, Lumpectomy Other Surgical History: gastric bypass, carpal tunnel, left knee replacement, bile duct - Social History Smoking Status: Former smoker Exposure to second hand smoke: No Drug Use: none Patient Lives Alone: No - Social Determinants of Health Will the patient participate in the screening: Yes Do you worry about a steady place to live?: No In the past 12 months,have you had to go without utilities?: No Transportation Issues: No Has anyone in your support network made you feel unsafe?: No Have you or anyone in your house had to go without enough: No - Nursing Vital Signs Nursing Vital Signs: Initial Vital Signs Temperature 99.2 F 05/15/24 19:06 Pulse Rate 102 H 05/15/24 19:06 Respiratory Rate 30 H 05/15/24 19:06 Blood Pressure 165/109 05/15/24 19:06 O2 Sat by Pulse Oximetry 88 L 05/15/24 19:06 Pain Scale Pain Intensity 0 - Physical Exam General Appearance: no apparent distress, alert, anxiety Eye Exam: PERRL/EOMI, eyes nml inspection Ears, Nose, Throat Exam: hearing grossly normal, normal ENT inspection, normal pharynx Neck Exam: normal inspection, non-tender, supple, full range of motion Respiratory Exam: normal breath sounds, lungs clear, airway intact, No chest tenderness, No respiratory distress Cardiovascular/Chest Exam: normal heart sounds, regular rate/rhythm Abdominal/Gastrointestinal Exam: soft, normal bowel sounds, No tenderness Extremity Exam: non-tender, normal range of motion, pedal edema (Bilateral feet and ankles) Neurologic Exam: alert, oriented x 3, cooperative, interior design program chair II-XII nml as tested, nml cerebellar function, nml station & gait, sensation nml Skin Exam: normal color, warm, dry Lymphatic Exam: No adenopathy SpO2 Interpretation: hypoxic SpO2: 88 O2 Delivery: Room Air - Course Nursing assessment & vital signs reviewed: Yes EKG Interpreted by Me: RATE (102), Sinus Tach, NORMAL AXIS, NORMAL INTERVALS, Left Bundle Branch Block, Other (QTc is 441. No acute ischemia. Comparison twelve-lead EKG is 04/21/2024. No significant or acute changes today) Ordered Tests: Active Orders 24 hr Category Date Time Status EKG-ER Only STAT Care 05/15/24 19:42 Active IV Insertion STAT Care 05/15/24 19:42 Active Pulse Oximetry (ED) STAT Care 05/15/24 19:42 Active CHEST 1 VIEW (PORTABLE) Stat Exams 05/15/24 19:42 Taken CBC W DIFF Stat Lab 05/15/24 19:20 Completed CMP Stat Lab 05/15/24 19:20 Completed Lactic Acid Stat Lab 05/15/24 20:00 Completed MAGNESIUM Stat Lab 05/15/24 19:20 Completed MONO SCREEN Stat Lab 05/15/24 19:20 Completed NT PRO BNPII Stat Lab 05/15/24 19:20 Completed TROPONIN Q4H Lab 05/15/24 19:20 Completed TROPONIN Q4H Lab 05/15/24 23:45 Ordered TROPONIN Q4H Lab 05/16/24 03:45 Ordered Medication Summary Discontinued Medications Generic Name Dose Route Start Last Admin Trade Name Freq PRN Reason Stop Dose Admin Furosemide 40 mg 05/15/24 20:37 05/15/24 20:45 Furosemide 40 Mg/4 Ml Vial IV 05/15/24 20:38 40 mg STAT ONE Administration Furosemide Confirm 05/15/24 20:42 Furosemide 40 Mg/4 Ml Vial Administered 05/15/24 20:43 Dose 40 mg .ROUTE .STK-MED ONE Lab/Rad Data: Laboratory Result Diagrams 05/15/24 19:20 05/15/24 19:20 Laboratory Results 05/15/24 05/15/24 05/15/24 Range/Units 20:00 19:35 19:20 WBC (3.98-10.04) x10^3/uL RBC (3.93-5.22) x10^6/uL Hgb (11.2-15.7) g/dL Hct (34.1-44.9) % MCV (79.4-94.8) fL MCH (25.6-32.2) pg MCHC (32.2-35.5) g/dL RDW (11.7-14.4) % Plt Count (182-369) x10^3/uL MPV (9.4-12.3) fL Gran % (34.0-71.1) % Immature Gran % (Auto) (0.001-0.429) % Nucleat RBC Rel Count (0.00-0.2) % Eos # (Auto) (0.04-0.36) x10^3/uL Immature Gran # (Auto) (0.001-0.031) x10^3u/L Absolute Lymphs (auto) (1.18-3.74) x10^3/uL Absolute Monos (auto) (0.24-0.86) x10^3/uL Absolute Nucleated RBC (0.00-0.012) x10^3u/L Lymphocytes % (19.3-51.7) % Monocytes % (4.7-12.5) % Eosinophils % (0.7-5.8) % Basophils % (0.1-1.2) % Absolute Granulocytes (1.56-6.13) x10^3/uL Basophils # (0.01-0.08) x10^3/uL Sodium (135-145) mmol/L Potassium (3.5-5.1) mmol/L Chloride (98-107) mmol/L Carbon Dioxide (22-30) mmol/L Anion Gap (5-15) MEQ/L BUN (7-17) mg/dL Creatinine (0.52-1.04) mg/dL Estimated GFR ML/MIN Glucose (74-106) mg/dL Lactic Acid 1.2 (0.4-2.0) Calcium (8.4-10.2) mg/dL Magnesium (1.6-2.3) mg/dL Total Bilirubin (0.2-1.3) mg/dL AST (14-36) U/L ALT (0-35) U/L Alkaline Phosphatase (38-126) U/L Troponin I (0.000-0.033) ng/mL NT-Pro-B Natriuret Pep (<300) pg/mL Serum Total Protein (6.3-8.2) g/dL Albumin (3.5-5.0) g/dL Monoscreen NEGATIVE (NEGATIVE) Influenza Type A Ag NEGATIVE (NEGATIVE) Influenza Type B Ag NEGATIVE (NEGATIVE) RSV (PCR) NEGATIVE (NEGATIVE) SARS-CoV-2 (PCR) NEGATIVE (NEGATIVE) 05/15/24 05/15/24 05/15/24 Range/Units 19:20 19:20 19:20 WBC 7.3 (3.98-10.04) x10^3/uL RBC 3.80 L (3.93-5.22) x10^6/uL Hgb 11.7 (11.2-15.7) g/dL Hct 36.4 (34.1-44.9) % MCV 95.8 H (79.4-94.8) fL MCH 30.8 (25.6-32.2) pg MCHC 32.1 L (32.2-35.5) g/dL RDW 14.8 H (11.7-14.4) % Plt Count 245 (182-369) x10^3/uL MPV 9.8 (9.4-12.3) fL Gran % 67.7 (34.0-71.1) % Immature Gran % (Auto) 0.7 H (0.001-0.429) % Nucleat RBC Rel Count 0.0 (0.00-0.2) % Eos # (Auto) 0.35 (0.04-0.36) x10^3/uL Immature Gran # (Auto) 0.05 H (0.001-0.031) x10^3u/L Absolute Lymphs (auto) 1.44 (1.18-3.74) x10^3/uL Absolute Monos (auto) 0.48 (0.24-0.86) x10^3/uL Absolute Nucleated RBC 0.00 (0.00-0.012) x10^3u/L Lymphocytes % 19.8 (19.3-51.7) % Monocytes % 6.6 (4.7-12.5) % Eosinophils % 4.8 (0.7-5.8) % Basophils % 0.4 (0.1-1.2) % Absolute Granulocytes 4.91 (1.56-6.13) x10^3/uL Basophils # 0.03 (0.01-0.08) x10^3/uL Sodium 134 L (135-145) mmol/L Potassium 4.8 (3.5-5.1) mmol/L Chloride 102 (98-107) mmol/L Carbon Dioxide 27 (22-30) mmol/L Anion Gap 9.6 (5-15) MEQ/L BUN 30 H (7-17) mg/dL Creatinine 0.96 (0.52-1.04) mg/dL Estimated GFR 58.3 ML/MIN Glucose 114 H (74-106) mg/dL Lactic Acid (0.4-2.0) Calcium 8.5 (8.4-10.2) mg/dL Magnesium 2.5 H (1.6-2.3) mg/dL Total Bilirubin 1.50 H (0.2-1.3) mg/dL AST 39 H (14-36) U/L ALT 33 (0-35) U/L Alkaline Phosphatase 76 (38-126) U/L Troponin I 0.022 (0.000-0.033) ng/mL NT-Pro-B Natriuret Pep 9170 (<300) pg/mL Serum Total Protein 6.3 (6.3-8.2) g/dL Albumin 3.6 (3.5-5.0) g/dL Monoscreen (NEGATIVE) Influenza Type A Ag (NEGATIVE) Influenza Type B Ag (NEGATIVE) RSV (PCR) (NEGATIVE) SARS-CoV-2 (PCR) (NEGATIVE) - Progress Progress: improved, re-examined Air Movement: good Progress Note: 05/15/24 20:14 My medical decision making of the assignment of moderate complexity to this patient's medical issue today is based on review of the patient's past medical history, review the patient's medication list, reviewed patient drug allergy list, history present illness and physical findings on examination. The workup in this patient includes intravenous line placement, chest x-ray, troponin level, BNP level, twelve-lead EKG, CBC, CMP, viral swabs, monotest. Differential diagnosis includes but is not limited to COPD, CHF, arrhythmia, myocardial infarction, pneumonia, viral illness Blood Culture(s) Obtained: Yes Antibiotics given: No Discussed with : Jean Carlos Counseled pt/family regarding: lab results, diagnosis, rad results Medical Desision Making - Independent Historian Additional History obtained from: Family - Diagnostic Testing Diagnostic test were ordered, analyzed, and reviewed by me: Yes Radiological Interpretation: Interpreted by me, Teleradiologist Report - Risk of complications The pt has a high risk of morbidity or mortality based on: Decision regarding hospitilization or escalation of hosp level of care - Departure Departure Disposition: In-patient Admission Clinical Impression: CHF (congestive heart failure), Hypoxia, Shortness of breath Condition: Fair Critical Care Time: Yes Critical Care Time(excluding separately billable procedures): Critical 30-74 mins (45) Referrals: WES ZAVALETA [Primary Care Provider] - Follow up/PCP as directed Instructions: Heart Failure
[2024-05-15 19:46] LABS: Absolute Neutrophil Ct (ANC) 4.91 x10^3/uL (1.56-6.13); BASOPHIL % 0.4 % (0.1-1.2); Basophil (Absolute #) 0.03 x10^3/uL (0.01-0.08); Eosinophil % 4.8 % (0.7-5.8); Eosinophil (Absolute #) 0.35 x10^3/uL (0.04-0.36); Hematocrit 36.4 % (34.1-44.9); Hemoglobin 11.7 g/dL (11.2-15.7); IMMATURE GRAN # 0.05 x10^3u/L (0.001-0.031); IMMATURE GRAN % 0.7 % (0.001-0.429); Lymphocyte (Absolute #) 1.44 x10^3/uL (1.18-3.74); Lymphocytes % 19.8 % (19.3-51.7); Mean Cell Volume 95.8 fL (79.4-94.8); Mean Corpuscular Hemoglobin 30.8 pg (25.6-32.2); Mean Corpuscular Hgb Concent. 32.1 g/dL (32.2-35.5); Mean Platelet Volume 9.8 fL (9.4-12.3); Monocyte (Absolute #) 0.48 x10^3/uL (0.24-0.86); Monocytes % 6.6 % (4.7-12.5); Neutrophil % 67.7 % (34.0-71.1); Platelet Count 245 x10^3/uL (182-369); Red Cell Distribution Width 14.8 % (11.7-14.4); White Blood Count 7.3 x10^3/uL (3.98-10.04)
[2024-05-15 20:04] LABS: ALBUMIN 3.6 g/dL (3.5-5.0); ANION GAP 9.6 MEQ/L (5-15); BILIRUBIN,TOTAL 1.5 mg/dL (0.2-1.3); Calcium 8.5 mg/dL (8.4-10.2); Creatinine 1 0.96 mg/dL (0.52-1.04); EST GLOMERULAR FILTRATION RATE 58.3 ML/MIN; MAGNESIUM 2.5 mg/dL (1.6-2.3); Potassium 4.8 mmol/L (3.5-5.1); Total Protein 6.3 g/dL (6.3-8.2)
[2024-05-15 20:24] LABS: INFLUENZA A NEGATIVE (NEGATIVE); INFLUENZA B NEGATIVE (NEGATIVE); RESPIRATORY SYNCTIAL VIRUS NEGATIVE (NEGATIVE); SARS-CoV-2 Xpert Express NEGATIVE (NEGATIVE)
[2024-05-15] MEDS ORDERED: Lasix 40 MG/4 ML ONE (20:42)
[2024-05-15] MEDS: Lasix 40 MG/4 ML IV ONE (20:45)
[2024-05-15] MEDS ORDERED: TYLENOL 325 MG PO PRN (21:54)
[2024-05-15] MEDS ORDERED: Zofran 4 MG/2 ML VIAL IV PRN (21:54)
[2024-05-15] MEDS ORDERED: TYLENOL EXTRA STRENGTH 500 MG PO PRN (23:17)
[2024-05-15] MEDS ORDERED: ULTRAM 50 MG PO PRN (23:17)
--- NOTE | 2024-05-15 23:43 | PCM.HP ---
History of Present Illness - Chief Complaint Chief Complaint: shortness of breath Date: 05/15/24 History of Present Illness: 83-year-old with a history of CVA, hypertension, hypothyroidism, and GERD, presents with dyspnea and leg edema. Patient notes that about 1 week ago she was hospitalized with pneumonia. Since going home, her cough had resolved. However, for the past few days, she has developed progressive dyspnea, associated with progressive edema of her legs. She reports paroxysmal nocturnal dyspnea, but no orthopnea. 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 Denies any fevers, sore throat, or sick contacts. Denies any prior history of CHF or similar symptoms. However, she does that she usually wears compression stockings. - Review of Systems All Other Systems: Reviewed and Negative Medications & Allergies Home Medications: Home Medication List Calcium Carbonate/Vitamin D3 [Calcium 500 mg Chewable Tablet] 1 tab PO BID 06/02/16 [History Confirmed 05/15/24] Carvedilol 12.5 mg [Coreg 12.5 mg] 25 mg PO BID 06/02/16 [History Confirmed 05/15/24] Cholecalciferol (Vitamin D3) [Vitamin D3] 1,000 unit PO HS 06/02/16 [History Confirmed 05/15/24] Cyanocobalamin (Vitamin B-12) [Vitamin B12] 2,500 mcg SL BID 06/02/16 [History Confirmed 05/15/24] Ezetimibe 10 mg [Zetia 10 MG] 10 mg PO DAILY 06/02/16 [History Confirmed 05/15/24] Ferrous Sulfate [Iron] 325 mg PO DAILY 06/02/16 [History Confirmed 05/15/24] Flaxseed Oil/[place] 3,6,9 [Sv Flaxseed Oil 1,300 mg Sftgl] 1 each PO HS 06/02/16 [History Confirmed 05/15/24] Multivitamin [Multivitamins] 1 each PO DAILY 06/02/16 [History Confirmed 05/15/24] Vitamin A 8,000 unit PO HS 06/02/16 [History Confirmed 05/15/24] Acetaminophen 500 mg [Tylenol Extra Strength 500 mg] 1,000 mg PO Q6HPRN PRN 05/09/23 [History Confirmed 05/15/24] Atorvastatin Calcium [Lipitor 20MG Tablet] 20 mg PO HS 05/09/23 [History Confirmed 05/15/24] Biotin 1,000 mcg PO HS 05/09/23 [History Confirmed 05/15/24] Calcium Polycarbophil 625 mg [Fibercon 625 mg] 625 mg PO HS 05/09/23 [History Confirmed 05/15/24] Clopidogrel Bisulfate [PLAVIX Tablet] 75 mg PO DAILY 05/09/23 [History Confirmed 05/15/24] Levothyroxine Sodium 100 Mcg [Synthroid 100 Mcg] 100 mcg PO DAILY 05/09/23 [History Confirmed 05/15/24] Losartan/Hydrochlorothiazide [Losartan-Hctz 100-12.5 mg Tab] 1 each PO DAILY 05/09/23 [History Confirmed 05/15/24] PANTOPRAZOLE 40 mg Tablet [Protonix 40MG Tablet] 40 mg PO DAILY 05/09/23 [History Confirmed 05/15/24] Tumeric/Ging/[place]/Oreg/Capryl [Candicidal Capsule] 1 each PO HS 05/09/23 [History Confirmed 05/15/24] Ubidecarenone/Vit E Acet [Co Q-10 100 mg Softgel] 1 each PO HS 05/09/23 [History Confirmed 05/15/24] Vit C/E/Zn/Coppr/Lutein/Zeaxan [Preservision Areds 2 Softgel] 1 cap PO BID 05/12/23 [History Confirmed 05/15/24] Tramadol HCl 50 mg [Ultram 50 mg] 50 mg PO Q6HPRN PRN 3 Days #12 tablet 05/24/23 [Rx Confirmed 05/15/24] Methenamine Hippurate 1 gm PO BID 05/15/24 [History Confirmed 05/15/24] Allergies/Adverse Reactions: Allergies Allergy/AdvReac Type Severity Reaction Status Date / Time Penicillins Allergy Verified 05/15/24 19:18 - Past Medical History Past Medical History: Yes Neurological History: Stroke ENT History: Cataracts Cardiac History: Arrhythmia, High Cholesterol, Hypertension Respiratory History: No Pertinent History Endocrine Medical History: Hypothyroidism Musculoskelatal History: Degenerative Disk Disease, Osteoarthritis GI Medical History: GERD, Gallbladder Disease, Hernia History: No Pertinent History Pyscho-Social History: No Pertinent History Reproductive Disorders: Breast Cancer Comment: REPORTS CVA AFFECTED SKIN PRIMARILY WITH NUMBNESS BUT 90% RESOLVED. PMHX: GERD, BREAST CA (LUMPECTOMY LEFT AND RADIATION) 1999, LEFT TKR 2011, GASTRIC BYPASS. Bile Duct infection. Hiatal Hernia - Past Surgical History Past Surgical History: Yes Neuro Surgical History: No Pertinent History Cardiac History: No Pertinent History Respiratory Surgery: No Pertinent History GI Surgical History: Cholecystectomy Genitourinary Surgical Hx: No Pertinent History Musculskeletal Surgical Hx: Orthopedic Surgery Female Surgical History: Hysterectomy, Lumpectomy Other Surgical History: gastric bypass, carpal tunnel, left knee replacement, bile duct Significant Family History: no pertinent family hx - Social History Smoking Status: Former smoker Exposure to second hand smoke: No Alcohol: None Drug Use: none - Social Determinants of Health Will the patient participate in the screening: Yes Do you worry about a steady place to live?: No Do you have any problems with any of the following?: No known problems In the past 12 months,have you had to go without utilities?: No Have you or anyone in your house had to go without enough: No Transportation Issues: No Has anyone in your support network made you feel unsafe?: No Does the patient want assistance with any of the above?: No - Physical Exam Vital Signs: Vital Signs - 24 hr Temp Pulse Resp BP BP Pulse Ox 05/15/24 23:00 94 H 18 94 L 05/15/24 22:37 97.9 F 104 H 17 156/73 94 L 05/15/24 21:06 88 L 05/15/24 21:00 106 H 22 142/64 96 05/15/24 20:30 100 H 36 H 135/77 05/15/24 20:00 99 H 31 H 129/72 95 05/15/24 19:42 94 L 05/15/24 19:30 93 H 22 136/88 97 05/15/24 19:08 30 H 94 L 05/15/24 19:06 99.2 F 102 H 30 H 165/109 88 L Physical Exam GEN: Sitting up in bed in no acute distress. HENT: Normocephalic, atraumatic. Moist mucous membranes. EYES: Normal inspection, anicteric sclera, extraocular movements intact. NECK: Supple, full range of motion CV: Regular rate and rhythm, no murmurs, no gallops. Pitting edema to the ankles bilaterally. PULM: Mild crackles at the bases bilaterally. On room air. ABD: Nondistended, nontender. MSK: No joint effusions, full range of motion SKIN: No rashes, erythema over areas of edema in bilateral ankles. No lesions or skin breakdown. NEURO: Face symmetric, no focal motor or sensory deficits. PSYCH: Alert, oriented x 3 Results - Labs Lab/Micro Results: Lab Results-Last 24 Hours 05/15/24 05/15/24 05/15/24 Range/Units 19:20 19:20 19:20 WBC 7.3 (3.98-10.04) x10^3/uL RBC 3.80 L (3.93-5.22) x10^6/uL Hgb 11.7 (11.2-15.7) g/dL Hct 36.4 (34.1-44.9) % MCV 95.8 H (79.4-94.8) fL MCH 30.8 (25.6-32.2) pg MCHC 32.1 L (32.2-35.5) g/dL RDW 14.8 H (11.7-14.4) % Plt Count 245 (182-369) x10^3/uL MPV 9.8 (9.4-12.3) fL Gran % 67.7 (34.0-71.1) % Immature Gran % (Auto) 0.7 H (0.001-0.429) % Nucleat RBC Rel Count 0.0 (0.00-0.2) % Eos # (Auto) 0.35 (0.04-0.36) x10^3/uL Immature Gran # (Auto) 0.05 H (0.001-0.031) x10^3u/L Absolute Lymphs (auto) 1.44 (1.18-3.74) x10^3/uL Absolute Monos (auto) 0.48 (0.24-0.86) x10^3/uL Absolute Nucleated RBC 0.00 (0.00-0.012) x10^3u/L Lymphocytes % 19.8 (19.3-51.7) % Monocytes % 6.6 (4.7-12.5) % Eosinophils % 4.8 (0.7-5.8) % Basophils % 0.4 (0.1-1.2) % Absolute Granulocytes 4.91 (1.56-6.13) x10^3/uL Basophils # 0.03 (0.01-0.08) x10^3/uL Sodium 134 L (135-145) mmol/L Potassium 4.8 (3.5-5.1) mmol/L Chloride 102 (98-107) mmol/L Carbon Dioxide 27 (22-30) mmol/L Anion Gap 9.6 (5-15) MEQ/L BUN 30 H (7-17) mg/dL Creatinine 0.96 (0.52-1.04) mg/dL Estimated GFR 58.3 ML/MIN Glucose 114 H (74-106) mg/dL Lactic Acid (0.4-2.0) Calcium 8.5 (8.4-10.2) mg/dL Magnesium 2.5 H (1.6-2.3) mg/dL Total Bilirubin 1.50 H (0.2-1.3) mg/dL AST 39 H (14-36) U/L ALT 33 (0-35) U/L Alkaline Phosphatase 76 (38-126) U/L Troponin I 0.022 (0.000-0.033) ng/mL NT-Pro-B Natriuret Pep 9170 (<300) pg/mL Serum Total Protein 6.3 (6.3-8.2) g/dL Albumin 3.6 (3.5-5.0) g/dL Monoscreen (NEGATIVE) Influenza Type A Ag (NEGATIVE) Influenza Type B Ag (NEGATIVE) RSV (PCR) (NEGATIVE) SARS-CoV-2 (PCR) (NEGATIVE) 05/15/24 05/15/24 05/15/24 Range/Units 19:20 19:35 20:00 WBC (3.98-10.04) x10^3/uL RBC (3.93-5.22) x10^6/uL Hgb (11.2-15.7) g/dL Hct (34.1-44.9) % MCV (79.4-94.8) fL MCH (25.6-32.2) pg MCHC (32.2-35.5) g/dL RDW (11.7-14.4) % Plt Count (182-369) x10^3/uL MPV (9.4-12.3) fL Gran % (34.0-71.1) % Immature Gran % (Auto) (0.001-0.429) % Nucleat RBC Rel Count (0.00-0.2) % Eos # (Auto) (0.04-0.36) x10^3/uL Immature Gran # (Auto) (0.001-0.031) x10^3u/L Absolute Lymphs (auto) (1.18-3.74) x10^3/uL Absolute Monos (auto) (0.24-0.86) x10^3/uL Absolute Nucleated RBC (0.00-0.012) x10^3u/L Lymphocytes % (19.3-51.7) % Monocytes % (4.7-12.5) % Eosinophils % (0.7-5.8) % Basophils % (0.1-1.2) % Absolute Granulocytes (1.56-6.13) x10^3/uL Basophils # (0.01-0.08) x10^3/uL Sodium (135-145) mmol/L Potassium (3.5-5.1) mmol/L Chloride (98-107) mmol/L Carbon Dioxide (22-30) mmol/L Anion Gap (5-15) MEQ/L BUN (7-17) mg/dL Creatinine (0.52-1.04) mg/dL Estimated GFR ML/MIN Glucose (74-106) mg/dL Lactic Acid 1.2 (0.4-2.0) Calcium (8.4-10.2) mg/dL Magnesium (1.6-2.3) mg/dL Total Bilirubin (0.2-1.3) mg/dL AST (14-36) U/L ALT (0-35) U/L Alkaline Phosphatase (38-126) U/L Troponin I (0.000-0.033) ng/mL NT-Pro-B Natriuret Pep (<300) pg/mL Serum Total Protein (6.3-8.2) g/dL Albumin (3.5-5.0) g/dL Monoscreen NEGATIVE (NEGATIVE) Influenza Type A Ag NEGATIVE (NEGATIVE) Influenza Type B Ag NEGATIVE (NEGATIVE) RSV (PCR) NEGATIVE (NEGATIVE) SARS-CoV-2 (PCR) NEGATIVE (NEGATIVE) - Radiology Impressions Radiology Exams & Impressions: Radiology Procedures Category Date Time Status CHEST 1 VIEW (PORTABLE) Stat Exams 05/15/24 19:42 Taken ECHO W/2D AND DOPPLER [US] Routine Exams 05/15/24 23:26 Ordered Chest x-ray patchy bilateral edema. No consolidation. (Images personally reviewed) - Other Procedures and Tests Respiratory Therapy 05/15/24 21:54 Oxygen Nasal Cannula 2 lpm 05/15/24 23:36 Respiratory Therapy Assessment DAILY Assessment/Plan (1) CHF (congestive heart failure) Current Visit: Yes Status: Acute Assessment & Plan: 83-year-old woman with a history of CVA, hypertension, GERD, hypothyroidism, here with dyspnea, leg edema, consistent with acute onset of heart failure. ## Likely congestive heart failure patient presents with new onset leg edema, PND, impressive dyspnea, associated with elevated BNP. No prior history of known CHF, although patient does wear compression stockings chronically. Last echocardiogram done here was 10 years ago when noted to have some left ventricular hypertrophy, but normal systolic function. Patient is at risk for diastolic heart failure secondary to LVH from hypertension. But has h/o CVA, at risk for ischemic heart disease with systolic dysfunction as well Start Lasix 40 mg IV BID Follow BMP, magnesium Check echocardiogram Check TSH ## Hypertension blood pressure well-controlled. Continue carvedilol 25 mg BID, losartan/HCTZ 100/12.5 ## History of CVA Continue atorvastatin 20 QHS, Plavix 75 CODE STATUS: Full code Prophylaxis: Subcutaneous heparin Diet: Low-sodium Disposition: Place in inpatient, expect discharge eventually to home Code(s): I50.9 - HEART FAILURE, UNSPECIFIED Telemedicine Encounter - Telemedicine Encounter Telemedicine Encounter: "The entirety of this encounter was performed via Telemedicine" This visit was performed using real-time audio and video connection between my location and thepatients locationwith the assistance of a surrogateat the patients location. Written or verbal consent was obtained from the patient/guardian to perform this visit using[email or web address] technology. Any patient questions regarding the telemedicine interaction were answered.
[2024-05-16] MEDS: Lasix 40 MG/4 ML IV SCH (00:48)
[2024-05-16 04:43] LABS: Absolute Neutrophil Ct (ANC) 3.48 x10^3/uL (1.56-6.13); BASOPHIL % 0.7 % (0.1-1.2); Basophil (Absolute #) 0.04 x10^3/uL (0.01-0.08); Eosinophil % 8.6 % (0.7-5.8); Eosinophil (Absolute #) 0.51 x10^3/uL (0.04-0.36); Hematocrit 31.2 % (34.1-44.9); Hemoglobin 10.1 g/dL (11.2-15.7); IMMATURE GRAN # 0.03 x10^3u/L (0.001-0.031); IMMATURE GRAN % 0.5 % (0.001-0.429); Lymphocyte (Absolute #) 1.38 x10^3/uL (1.18-3.74); Lymphocytes % 23.3 % (19.3-51.7); Mean Cell Volume 96.6 fL (79.4-94.8); Mean Corpuscular Hemoglobin 31.3 pg (25.6-32.2); Mean Corpuscular Hgb Concent. 32.4 g/dL (32.2-35.5); Monocyte (Absolute #) 0.49 x10^3/uL (0.24-0.86); Monocytes % 8.3 % (4.7-12.5); Neutrophil % 58.6 % (34.0-71.1); Platelet Count 222 x10^3/uL (182-369); Red Blood Count 3.23 x10^6/uL (3.93-5.22); White Blood Count 5.9 x10^3/uL (3.98-10.04)
[2024-05-16 04:52] LABS: ALBUMIN 2.8 g/dL (3.5-5.0); ANION GAP 6.8 MEQ/L (5-15); Calcium 8.1 mg/dL (8.4-10.2); Creatinine 1 1.01 mg/dL (0.52-1.04); EST GLOMERULAR FILTRATION RATE 54.9 ML/MIN; Potassium 4.6 mmol/L (3.5-5.1)
[2024-05-16 05:23] LABS: MAGNESIUM 2.2 mg/dL (1.6-2.3); TSH, 3RD Generation 3.505 mIU/L (0.470-4.680)
[2024-05-16] MEDS ORDERED: DUONEB 0.5-3 MG/3 ml Neb IH PRN (05:24)
[2024-05-16] MEDS: HEPARIN 5000 UNITS/0.5 ML (HIGH RISK MED) SQ SCH (06:38)
--- NOTE | 2024-05-16 08:20 | XRAY ---
Indication: Short of breath. Comparison: None Portable chest demonstrates moderate bibasilar infiltrates/atelectasis/effusions. Heart not enlarged with mitral valve calcifications. Bony thorax intact with osteopenia and moderate degenerative changes.
[2024-05-16] MEDS ORDERED: MEDICATION INTERVENTION MC SCH (08:45)
[2024-05-16] MEDS ORDERED: CALCIUM CARBONATE PO SCH (10:00)
[2024-05-16] MEDS ORDERED: NON-FORMULARY ITEM (Methenamine Hippurate [Methenamine Hippurate] 1 GM Tablet) PO SCH (10:00)
[2024-05-16] MEDS ORDERED: NON-FORMULARY ITEM (Losartan/Hydrochlorothiazide [Losartan-Hctz 100-12.5 Mg Tab] 1 EACH Ta PO SCH (10:00)
[2024-05-16] MEDS ORDERED: VITAMIN D3 PO SCH (10:00)
[2024-05-16] MEDS ORDERED: NON-FORMULARY ITEM (Multivitamin [Multivitamins] 1 EACH Capsule) PO SCH (10:00)
[2024-05-16] MEDS ORDERED: [UNRECOGNIZED DRUG - OTHER] PO SCH (10:00)
[2024-05-16] MEDS: Calcium 500MG W/Vit D Tablet PO SCH (10:29)
[2024-05-16] MEDS: hydroDIURIL 25 MG PO SCH (10:29)
[2024-05-16] MEDS: COREG 12.5 MG PO SCH (10:31)
[2024-05-16] MEDS: FEOSOL 325 MG PO SCH (10:31)
[2024-05-16] MEDS: Cozaar 50 MG PO SCH (10:32)
[2024-05-16] MEDS: Protonix 40MG Tablet PO SCH (10:32)
[2024-05-16] MEDS: Zetia 10 MG PO SCH (10:32)
[2024-05-16] MEDS: THERAGRAN MULTIVITAMIN PO SCH (10:33)
[2024-05-16] MEDS: PLAVIX Tablet PO SCH (10:33)
[2024-05-16] MEDS: SYNTHROID 100 MCG PO SCH (10:34)
--- NOTE | 2024-05-16 14:10 | PCM.NOTE ---
Date and Time: 05/16/24 1358 Subjective Assessment: 05/16/24 83-year-old with a history of CVA, hypertension, hypothyroidism, and GERD. She presented on 05/15/24 with dyspnea and leg edema. Patient notes that about 1 week ago she was hospitalized with aspiration pneumonia at [facility]. She did not have any type of swallow study. Since going home, her cough had resolved. However, for the past few days, she has developed progressive dyspnea, associated with progressive edema of her legs. She reports paroxysmal nocturnal dyspnea, but no orthopnea. 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 Denies any fevers, sore throat, or sick contacts. Denies any prior history of CHF or similar symptoms. However, she does that she usually wears compression stockings. She feels she may have needed oxygen at home for some time. Will order and overnight pulse OX. She is on 2lNC at 96% today, baseline RA. Her BLLE are warm/ red/ and swollen today with 3+ pitting edema. She states they are like this all the time and felt it was nonconcerning. Will start IV antibiotics for cellulitis. Continue IV lasix for CHF. She is scheduled to have an Echo Saturday as we cannot do on the weekends here. Ordered a barium swallow for Saturday for recent aspiration pneumonia and continued SOB. CXR shows BLL infiltrates will also treat for pneumonia. Pt denies CP, Abd. pain N/V/D. - Review of Systems Constitutional: No Fever, No Chills Eyes: No Symptoms Ears, Nose, & Throat: No Symptoms Respiratory: Orthopnea, Short Of Breath, No Cough Cardiac: Edema (BLLE), No Chest Pain, No Syncope Abdominal/Gastrointestinal: No Abdominal Pain, No Nausea, No Vomiting, No Diarrhea Genitourinary Symptoms: No Dysuria Musculoskeletal: No Back Pain, No Neck Pain Skin: Cellulitis (BLLE), No Rash Neurological: Focal Weakness, No Dizziness, No Sensory Changes Psychological: No Symptoms Endocrine: No Symptoms Hematologic/Lymphatic: No Symptoms Immunological/Allergic: No Symptoms Objective Exam General Appearance: no apparent distress, alert Neurologic Exam: alert, oriented x 3, cooperative, normal mood/affect, nml cerebellar function, sensation nml, No motor deficits Skin Exam: normal color, warm, dry Eye Exam: PERRL, EOMI, eyes nml inspection Ears, Nose, Throat Exam: normal ENT inspection, pharynx normal, moist mucous membranes Neck Exam: normal inspection, non-tender, supple, full range of motion Respiratory Exam: lungs clear, diminished breath sounds (BLLE), No respiratory distress Cardiovascular Exam: regular rate/rhythm, normal heart sounds, edema (BLLE + 3 pitting) Gastrointestinal/Abdomen Exam: soft, No tenderness, No mass Extremity Exam: normal inspection, normal range of motion, inflammation, swelling, tenderness (BLLE) Back Exam: normal inspection, normal range of motion, No CVA tenderness, No vertebral tenderness Pelvic Exam: deferred Rectal Exam: deferred Objective Data Vital Signs: Vital Signs - 24 hr Temp Pulse Resp BP BP Pulse Ox 05/16/24 11:36 97.3 F 86 22 122/57 96 05/16/24 08:15 72 05/16/24 07:41 97.6 F 47 L 22 129/61 95 05/16/24 07:27 68 18 96 05/16/24 03:50 97.1 F 97 H 17 110/58 96 05/15/24 23:00 94 H 18 94 L 05/15/24 22:37 97.9 F 104 H 17 156/73 94 L 05/15/24 21:06 88 L 05/15/24 21:00 106 H 22 142/64 96 05/15/24 20:30 100 H 36 H 135/77 05/15/24 20:00 99 H 31 H 129/72 95 05/15/24 19:42 94 L 05/15/24 19:30 93 H 22 136/88 97 05/15/24 19:08 30 H 94 L 05/15/24 19:06 99.2 F 102 H 30 H 165/109 88 L Pain Assessment - Last Documented Pain Intensity 0 Intake and Output: Intake & Output 05/14/24 05/15/24 05/16/24 05/17/24 11:59 11:59 11:59 11:59 Intake Total 380 350 Output Total 500 Balance -120 350 Weight 78 kg Lab Results: Lab Results-Last 24 Hours 05/15/24 05/15/24 05/15/24 Range/Units 00:04 19:20 19:20 WBC 7.3 (3.98-10.04) x10^3/uL RBC 3.80 L (3.93-5.22) x10^6/uL Hgb 11.7 (11.2-15.7) g/dL Hct 36.4 (34.1-44.9) % MCV 95.8 H (79.4-94.8) fL MCH 30.8 (25.6-32.2) pg MCHC 32.1 L (32.2-35.5) g/dL RDW 14.8 H (11.7-14.4) % Plt Count 245 (182-369) x10^3/uL MPV 9.8 (9.4-12.3) fL Gran % 67.7 (34.0-71.1) % Immature Gran % (Auto) 0.7 H (0.001-0.429) % Nucleat RBC Rel Count 0.0 (0.00-0.2) % Eos # (Auto) 0.35 (0.04-0.36) x10^3/uL Immature Gran # (Auto) 0.05 H (0.001-0.031) x10^3u/L Absolute Lymphs (auto) 1.44 (1.18-3.74) x10^3/uL Absolute Monos (auto) 0.48 (0.24-0.86) x10^3/uL Absolute Nucleated RBC 0.00 (0.00-0.012) x10^3u/L Lymphocytes % 19.8 (19.3-51.7) % Monocytes % 6.6 (4.7-12.5) % Eosinophils % 4.8 (0.7-5.8) % Basophils % 0.4 (0.1-1.2) % Absolute Granulocytes 4.91 (1.56-6.13) x10^3/uL Basophils # 0.03 (0.01-0.08) x10^3/uL Sodium 134 L (135-145) mmol/L Potassium 4.8 (3.5-5.1) mmol/L Chloride 102 (98-107) mmol/L Carbon Dioxide 27 (22-30) mmol/L Anion Gap 9.6 (5-15) MEQ/L BUN 30 H (7-17) mg/dL Creatinine 0.96 (0.52-1.04) mg/dL Estimated GFR 58.3 ML/MIN Glucose 114 H (74-106) mg/dL Lactic Acid (0.4-2.0) Calcium 8.5 (8.4-10.2) mg/dL Magnesium 2.5 H (1.6-2.3) mg/dL Total Bilirubin 1.50 H (0.2-1.3) mg/dL AST 39 H (14-36) U/L ALT 33 (0-35) U/L Alkaline Phosphatase 76 (38-126) U/L Troponin I 0.026 (0.000-0.033) ng/mL NT-Pro-B Natriuret Pep 9170 (<300) pg/mL Serum Total Protein 6.3 (6.3-8.2) g/dL Albumin 3.6 (3.5-5.0) g/dL TSH 3rd Generation (0.470-4.680) mIU/L Monoscreen (NEGATIVE) Influenza Type A Ag (NEGATIVE) Influenza Type B Ag (NEGATIVE) RSV (PCR) (NEGATIVE) SARS-CoV-2 (PCR) (NEGATIVE) 05/15/24 05/15/24 05/15/24 Range/Units 19:20 19:20 19:35 WBC (3.98-10.04) x10^3/uL RBC (3.93-5.22) x10^6/uL Hgb (11.2-15.7) g/dL Hct (34.1-44.9) % MCV (79.4-94.8) fL MCH (25.6-32.2) pg MCHC (32.2-35.5) g/dL RDW (11.7-14.4) % Plt Count (182-369) x10^3/uL MPV (9.4-12.3) fL Gran % (34.0-71.1) % Immature Gran % (Auto) (0.001-0.429) % Nucleat RBC Rel Count (0.00-0.2) % Eos # (Auto) (0.04-0.36) x10^3/uL Immature Gran # (Auto) (0.001-0.031) x10^3u/L Absolute Lymphs (auto) (1.18-3.74) x10^3/uL Absolute Monos (auto) (0.24-0.86) x10^3/uL Absolute Nucleated RBC (0.00-0.012) x10^3u/L Lymphocytes % (19.3-51.7) % Monocytes % (4.7-12.5) % Eosinophils % (0.7-5.8) % Basophils % (0.1-1.2) % Absolute Granulocytes (1.56-6.13) x10^3/uL Basophils # (0.01-0.08) x10^3/uL Sodium (135-145) mmol/L Potassium (3.5-5.1) mmol/L Chloride (98-107) mmol/L Carbon Dioxide (22-30) mmol/L Anion Gap (5-15) MEQ/L BUN (7-17) mg/dL Creatinine (0.52-1.04) mg/dL Estimated GFR ML/MIN Glucose (74-106) mg/dL Lactic Acid (0.4-2.0) Calcium (8.4-10.2) mg/dL Magnesium (1.6-2.3) mg/dL Total Bilirubin (0.2-1.3) mg/dL AST (14-36) U/L ALT (0-35) U/L Alkaline Phosphatase (38-126) U/L Troponin I 0.022 (0.000-0.033) ng/mL NT-Pro-B Natriuret Pep (<300) pg/mL Serum Total Protein (6.3-8.2) g/dL Albumin (3.5-5.0) g/dL TSH 3rd Generation (0.470-4.680) mIU/L Monoscreen NEGATIVE (NEGATIVE) Influenza Type A Ag NEGATIVE (NEGATIVE) Influenza Type B Ag NEGATIVE (NEGATIVE) RSV (PCR) NEGATIVE (NEGATIVE) SARS-CoV-2 (PCR) NEGATIVE (NEGATIVE) 05/15/24 05/16/24 05/16/24 Range/Units 20:00 04:36 04:36 WBC 5.9 (3.98-10.04) x10^3/uL RBC 3.23 L (3.93-5.22) x10^6/uL Hgb 10.1 L (11.2-15.7) g/dL Hct 31.2 L (34.1-44.9) % MCV 96.6 H (79.4-94.8) fL MCH 31.3 (25.6-32.2) pg MCHC 32.4 (32.2-35.5) g/dL RDW 15.0 H (11.7-14.4) % Plt Count 222 (182-369) x10^3/uL MPV 10.0 (9.4-12.3) fL Gran % 58.6 (34.0-71.1) % Immature Gran % (Auto) 0.5 H (0.001-0.429) % Nucleat RBC Rel Count 0.0 (0.00-0.2) % Eos # (Auto) 0.51 H (0.04-0.36) x10^3/uL Immature Gran # (Auto) 0.03 (0.001-0.031) x10^3u/L Absolute Lymphs (auto) 1.38 (1.18-3.74) x10^3/uL Absolute Monos (auto) 0.49 (0.24-0.86) x10^3/uL Absolute Nucleated RBC 0.00 (0.00-0.012) x10^3u/L Lymphocytes % 23.3 (19.3-51.7) % Monocytes % 8.3 (4.7-12.5) % Eosinophils % 8.6 H (0.7-5.8) % Basophils % 0.7 (0.1-1.2) % Absolute Granulocytes 3.48 (1.56-6.13) x10^3/uL Basophils # 0.04 (0.01-0.08) x10^3/uL Sodium (135-145) mmol/L Potassium (3.5-5.1) mmol/L Chloride (98-107) mmol/L Carbon Dioxide (22-30) mmol/L Anion Gap (5-15) MEQ/L BUN (7-17) mg/dL Creatinine (0.52-1.04) mg/dL Estimated GFR ML/MIN Glucose (74-106) mg/dL Lactic Acid 1.2 (0.4-2.0) Calcium (8.4-10.2) mg/dL Magnesium (1.6-2.3) mg/dL Total Bilirubin (0.2-1.3) mg/dL AST (14-36) U/L ALT (0-35) U/L Alkaline Phosphatase (38-126) U/L Troponin I 0.025 (0.000-0.033) ng/mL NT-Pro-B Natriuret Pep (<300) pg/mL Serum Total Protein (6.3-8.2) g/dL Albumin (3.5-5.0) g/dL TSH 3rd Generation (0.470-4.680) mIU/L Monoscreen (NEGATIVE) Influenza Type A Ag (NEGATIVE) Influenza Type B Ag (NEGATIVE) RSV (PCR) (NEGATIVE) SARS-CoV-2 (PCR) (NEGATIVE) 05/16/24 05/16/24 Range/Units 04:36 04:36 WBC (3.98-10.04) x10^3/uL RBC (3.93-5.22) x10^6/uL Hgb (11.2-15.7) g/dL Hct (34.1-44.9) % MCV (79.4-94.8) fL MCH (25.6-32.2) pg MCHC (32.2-35.5) g/dL RDW (11.7-14.4) % Plt Count (182-369) x10^3/uL MPV (9.4-12.3) fL Gran % (34.0-71.1) % Immature Gran % (Auto) (0.001-0.429) % Nucleat RBC Rel Count (0.00-0.2) % Eos # (Auto) (0.04-0.36) x10^3/uL Immature Gran # (Auto) (0.001-0.031) x10^3u/L Absolute Lymphs (auto) (1.18-3.74) x10^3/uL Absolute Monos (auto) (0.24-0.86) x10^3/uL Absolute Nucleated RBC (0.00-0.012) x10^3u/L Lymphocytes % (19.3-51.7) % Monocytes % (4.7-12.5) % Eosinophils % (0.7-5.8) % Basophils % (0.1-1.2) % Absolute Granulocytes (1.56-6.13) x10^3/uL Basophils # (0.01-0.08) x10^3/uL Sodium 133 L (135-145) mmol/L Potassium 4.6 (3.5-5.1) mmol/L Chloride 103 (98-107) mmol/L Carbon Dioxide 28 (22-30) mmol/L Anion Gap 6.8 (5-15) MEQ/L BUN 30 H (7-17) mg/dL Creatinine 1.01 (0.52-1.04) mg/dL Estimated GFR 54.9 ML/MIN Glucose 115 H (74-106) mg/dL Lactic Acid (0.4-2.0) Calcium 8.1 L (8.4-10.2) mg/dL Magnesium 2.2 (1.6-2.3) mg/dL Total Bilirubin 1.00 (0.2-1.3) mg/dL AST 28 (14-36) U/L ALT 27 (0-35) U/L Alkaline Phosphatase 58 (38-126) U/L Troponin I (0.000-0.033) ng/mL NT-Pro-B Natriuret Pep (<300) pg/mL Serum Total Protein 5.0 L (6.3-8.2) g/dL Albumin 2.8 L (3.5-5.0) g/dL TSH 3rd Generation 3.505 (0.470-4.680) mIU/L Monoscreen (NEGATIVE) Influenza Type A Ag (NEGATIVE) Influenza Type B Ag (NEGATIVE) RSV (PCR) (NEGATIVE) SARS-CoV-2 (PCR) (NEGATIVE) Radiology Exams: Radiology Procedures Category Date Time Status BARIUM SWALLOW ESOPHOGRAM Routine Exams 05/18/24 11:02 Ordered CHEST 1 VIEW (PORTABLE) Stat Exams 05/15/24 19:42 Completed ECHO W/2D AND DOPPLER [US] Routine Exams 05/15/24 23:26 Ordered Assessment/Plan (1) Pneumonia Current Visit: Yes Status: Acute Assessment & Plan: - Pt state she was recently in [facility] for aspiration pneumonia- no swallow study done - Barium swallow Saturday - CXR: Portable chest demonstrates moderate bibasilar infiltrates/atelectasis/effusions. Heart not enlarged with mitral valve calcifications. Bony thorax intact with osteopenia and moderate degenerative changes. - Vancomycin and Levaquin, Duonebs, steroids - ON 2lNC, baseline Room air - Overnight pulse ox as pt feels her O2 is low at night and has needed home O2 for some time. - CBC, CMP reviewed - BCx2 Code(s): J18.9 - PNEUMONIA, UNSPECIFIED ORGANISM (2) Cellulitis Current Visit: Yes Status: Acute Assessment & Plan: - acute on chronic - Levquin and vancomycin IV - Consider podiatry consult Code(s): L03.90 - CELLULITIS, UNSPECIFIED (3) CHF (congestive heart failure) Current Visit: Yes Status: Acute Assessment & Plan: - Lasix 40 Q12 - Echo results pending - Consider cardiology consult - BNP on admission 9170 - I&O's - [facility] Code(s): I50.9 - HEART FAILURE, UNSPECIFIED (4) Weakness Current Visit: Yes Status: Acute Assessment & Plan: - PT eval and treat Code(s): R53.1 - WEAKNESS (5) Hypoxia Current Visit: Yes Status: Acute Assessment & Plan: - 2lNC 96%, baseline RA - see above plan for pneumonia Code(s): R09.02 - HYPOXEMIA (6) SOB (shortness of breath) Current Visit: Yes Status: Acute Assessment & Plan: - see above plan for pneumonia Code(s): R06.02 - SHORTNESS OF BREATH (7) GERD (gastroesophageal reflux disease) Current Visit: No Status: Chronic Assessment & Plan: - protonix Code(s): K21.9 - GASTRO-ESOPHAGEAL REFLUX DISEASE WITHOUT ESOPHAGITIS (8) HTN (hypertension) Current Visit: No Status: Chronic Qualifiers: Hypertension type: primary hypertension Qualified Code(s): I10 - Essential (primary) hypertension Assessment & Plan: - BP stable continue home meds Code(s): I10 - ESSENTIAL (PRIMARY) HYPERTENSION (9) Hypothyroid Current Visit: No Status: Chronic Assessment & Plan: - TSH WNL - Continue synthroid VTE: Plavix PPI: protonix Next of KIN: Child Que Soliz [phone] D/C plan: 2-3 days Code status: Full Code(s): E03.9 - HYPOTHYROIDISM, UNSPECIFIED
[2024-05-16] MEDS: PHARMACY DOSING REQUIRED: VANCOMYCIN IV STA (15:44)
[2024-05-16] MEDS: LEVOFLOXACIN 750MG/150ML D5W 750 MG/150 ML BAG IV SCH (15:51)
[2024-05-16] MEDS: solu-MEDROL 40 MG, Sterile H2O 10 ml 1 ML IV SCH (15:51)
[2024-05-16] MEDS ORDERED: NON-FORMULARY ITEM (Atorvastatin Calcium 20 MG Tab) PO SCH (22:00)
[2024-05-16] MEDS: ZOCOR 20MG PO SCH (22:34)
[2024-05-16] MEDS: FIBERCON 625 MG PO SCH (22:40)
[2024-05-16] MEDS: VANCOMYCIN 1 GRAM/200 ML BAG 1 GM/200 ML PIGGYBACK IV SCH (22:47)
[2024-05-17 06:23] LABS: Hematocrit 32.5 % (34.1-44.9); Hemoglobin 10.4 g/dL (11.2-15.7); Mean Corpuscular Hemoglobin 30.4 pg (25.6-32.2); Mean Platelet Volume 9.9 fL (9.4-12.3); Platelet Count 241 x10^3/uL (182-369); Red Blood Count 3.42 x10^6/uL (3.93-5.22); Red Cell Distribution Width 14.7 % (11.7-14.4); White Blood Count 4.7 x10^3/uL (3.98-10.04)
[2024-05-17 06:52] LABS: ANION GAP 9.7 MEQ/L (5-15); BILIRUBIN,TOTAL 0.7 mg/dL (0.2-1.3); Calcium 8.4 mg/dL (8.4-10.2); Creatinine 1 1.23 mg/dL (0.52-1.04); EST GLOMERULAR FILTRATION RATE 43.3 ML/MIN; Total Protein 5.5 g/dL (6.3-8.2)
--- NOTE | 2024-05-17 11:53 | PCM.NOTE ---
Date and Time: 05/17/24 1146 Subjective Assessment: 05/16/24 83-year-old with a history of CVA, hypertension, hypothyroidism, and GERD. She presented on 05/15/24 with dyspnea and leg edema. Patient notes that about 1 week ago she was hospitalized with aspiration pneumonia at [facility]. She did not have any type of swallow study. Since going home, her cough had resolved. However, for the past few days, she has developed progressive dyspnea, associated with progressive edema of her legs. She reports paroxysmal nocturnal dyspnea, but no orthopnea. 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 Denies any fevers, sore throat, or sick contacts. Denies any prior history of CHF or similar symptoms. However, she does that she usually wears compression stockings. She feels she may have needed oxygen at home for some time. Will order and overnight pulse OX. She is on 2lNC at 96% today, baseline RA. Her BLLE are warm/ red/ and swollen today with 3+ pitting edema. She states they are like this all the time and felt it was nonconcerning. Will start IV antibiotics for cellulitis. Continue IV lasix for CHF. She is scheduled to have an Echo Saturday as we cannot do on the weekends here. Ordered a barium swallow for Saturday for recent aspiration pneumonia and continued SOB. CXR shows BLL infiltrates will also treat for pneumonia. Pt denies CP, Abd. pain N/V/D. 05/17/24 Pt resting in bed. Encouraged her to get up and sit in chair. She has been weaned from O2 and RA 93%. Continue Lasix for CHF. Continue IV antibiotocs for pneumonia and cellulitis of BLLE. HCTZ held as pt has CHRISTY today. Pt to have barium swallow and Echo tomorrow. She had an overnight pulse ox and it appears per results she will need home O2 at night when she dc's. This will need set up by case management. She denies CP, SOB, abd pain, N/V/D. - Review of Systems Constitutional: Weakness, No Fever, No Chills Eyes: No Symptoms Ears, Nose, & Throat: No Symptoms Respiratory: No Cough, No Short Of Breath Cardiac: Edema (BLLE), No Chest Pain, No Syncope Abdominal/Gastrointestinal: No Abdominal Pain, No Nausea, No Vomiting, No Diarrhea Genitourinary Symptoms: No Dysuria Musculoskeletal: No Back Pain, No Neck Pain Skin: Cellulitis, No Rash Neurological: No Dizziness, No Focal Weakness, No Sensory Changes Psychological: No Symptoms Endocrine: No Symptoms Hematologic/Lymphatic: No Symptoms Immunological/Allergic: No Symptoms Objective Exam General Appearance: no apparent distress, alert Neurologic Exam: alert, oriented x 3, cooperative, normal mood/affect, nml cerebellar function, sensation nml, motor weakness, No motor deficits Skin Exam: normal color, warm, dry Eye Exam: PERRL, EOMI, eyes nml inspection Ears, Nose, Throat Exam: normal ENT inspection, pharynx normal, moist mucous membranes Neck Exam: normal inspection, non-tender, supple, full range of motion Respiratory Exam: normal breath sounds, lungs clear, No respiratory distress Cardiovascular Exam: regular rate/rhythm, normal heart sounds, edema (+3 pitting BLLE) Gastrointestinal/Abdomen Exam: soft, No tenderness, No mass Extremity Exam: normal inspection, normal range of motion Back Exam: normal inspection, normal range of motion, No CVA tenderness, No vertebral tenderness Pelvic Exam: deferred Rectal Exam: deferred Objective Data Vital Signs: Vital Signs - 24 hr Temp Pulse Resp BP Pulse Ox 05/17/24 11:18 97.9 F 97 H 16 118/73 93 L 05/17/24 07:22 93 H 16 97 05/17/24 07:13 97.6 F 96 H 16 128/64 96 05/17/24 04:00 97.4 F 74 18 136/74 94 L 05/17/24 00:00 99.6 F 101 H 20 100/51 90 L 05/16/24 19:54 99.1 F 94 H 18 102/66 96 05/16/24 19:20 96 H 16 95 05/16/24 16:00 96.9 F 87 19 107/58 98 Pain Assessment - Last Documented Pain Intensity 0 Intake and Output: Intake & Output 05/14/24 05/15/24 05/16/24 05/17/24 11:59 11:59 11:59 11:59 Intake Total 380 1784 Output Total 500 2250 Balance -120 -466 Weight 78 kg 77.4 kg Lab Results: Lab Results-Last 24 Hours 05/17/24 05/17/24 Range/Units 06:15 06:15 WBC 4.7 (3.98-10.04) x10^3/uL RBC 3.42 L (3.93-5.22) x10^6/uL Hgb 10.4 L (11.2-15.7) g/dL Hct 32.5 L (34.1-44.9) % MCV 95.0 H (79.4-94.8) fL MCH 30.4 (25.6-32.2) pg MCHC 32.0 L (32.2-35.5) g/dL RDW 14.7 H (11.7-14.4) % Plt Count 241 (182-369) x10^3/uL MPV 9.9 (9.4-12.3) fL Sodium 133 L (135-145) mmol/L Potassium 4.0 (3.5-5.1) mmol/L Chloride 99 (98-107) mmol/L Carbon Dioxide 28 (22-30) mmol/L Anion Gap 9.7 (5-15) MEQ/L BUN 32 H (7-17) mg/dL Creatinine 1.23 H (0.52-1.04) mg/dL Estimated GFR 43.3 ML/MIN Glucose 183 H (74-106) mg/dL Calcium 8.4 (8.4-10.2) mg/dL Total Bilirubin 0.70 (0.2-1.3) mg/dL AST 23 (14-36) U/L ALT 26 (0-35) U/L Alkaline Phosphatase 62 (38-126) U/L Serum Total Protein 5.5 L (6.3-8.2) g/dL Albumin 3.0 L (3.5-5.0) g/dL Radiology Exams: Radiology Procedures Category Date Time Status BARIUM SWALLOW ESOPHOGRAM Routine Exams 05/18/24 11:02 Ordered CHEST 1 VIEW (PORTABLE) Stat Exams 05/15/24 19:42 Completed ECHO W/2D AND DOPPLER [US] Routine Exams 05/15/24 23:26 Ordered Multi-Disciplinary Progress Notes: Multi-Disciplinary Progress Notes 05/16/24 14:57 Pharmacy Note by Benton Amanda Pharmacokinetic dosing service Date: 05/16/2024 Time: 1500 Objective: Patient: TYREE SO Floor: 102 Age: 83 yo Serum creatinine: 1.01 mg/dL Height: 65 Inches Weight (kg): 78 Diagnosis: ASPIRATION PNEUMONIA Relevant medical/social history: Cultures and sensitivities: BLOOD PENDING Other labs: WBC = 5.9 Assessment: IBW (kg): 57.00 Dosing wt(kg): 78 Estimated Creatinine clearance (ml/min): 37.3 CRCL method: Cockcroft and Gault using ibw(default). Drug selected: Vancomycin Loading dose (mg): 0 Vd (liters): 58.5 (factor used: 0.75 L/kg) Sergey (hr-1): 0.035 Half life (hrs): 19.80 Recommended dose: 1000 mg Interval: 24 hrs Infusion time (hrs): 1.5 Predicted peak (mcg/mL): 29.3 Predicted trough (mcg/mL): 13.33 Total body weight is being used for vancomycin dosing. Renal function is stable [XXX ] /unstable [ ] Recommendations: Give Vancomycin 1000 mg q 24 hrs with an expected Cpeak of 29.3 mcg/ml and an expected Ctrough of 13.33 mcg/ml Renal dosing of other antibiotics (review renal dosing of other medications and list guidelines here): LEVAQUIN 750 MG IVPB Q48H Thank you for the consult, will continue to follow. Signature: MACKENZIE HOWARD [id number]/19/[id number] Initialized on 05/16/24 14:57 - END OF NOTE Assessment/Plan (1) Pneumonia Current Visit: Yes Status: Acute Code(s): J18.9 - PNEUMONIA, UNSPECIFIED ORGANISM (2) Cellulitis Current Visit: Yes Status: Acute Code(s): L03.90 - CELLULITIS, UNSPECIFIED (3) CHF (congestive heart failure) Current Visit: Yes Status: Acute Code(s): I50.9 - HEART FAILURE, UNSPECIFIED (4) Weakness Current Visit: Yes Status: Acute Code(s): R53.1 - WEAKNESS (5) Hypoxia Current Visit: Yes Status: Acute Code(s): R09.02 - HYPOXEMIA (6) SOB (shortness of breath) Current Visit: Yes Status: Acute Code(s): R06.02 - SHORTNESS OF BREATH (7) GERD (gastroesophageal reflux disease) Current Visit: No Status: Chronic Code(s): K21.9 - GASTRO-ESOPHAGEAL REFLUX DISEASE WITHOUT ESOPHAGITIS (8) HTN (hypertension) Current Visit: No Status: Chronic Qualifiers: Hypertension type: primary hypertension Qualified Code(s): I10 - Essential (primary) hypertension Code(s): I10 - ESSENTIAL (PRIMARY) HYPERTENSION (9) Hypothyroid Current Visit: No Status: Chronic Assessment & Plan: (1) Pneumonia Current Visit: Yes Status: Acute Assessment & Plan: - Pt state she was recently in [facility] for aspiration pneumonia- no swallow study done - Barium swallow Saturday - CXR: Portable chest demonstrates moderate bibasilar infiltrates/atelectasis/effusions. Heart not enlarged with mitral valve calcifications. Bony thorax intact with osteopenia and moderate degenerative changes. - Vancomycin and Levaquin, Duonebs, steroids - ON 2lNC, baseline Room air - Overnight pulse ox as pt feels her O2 is low at night and has needed home O2 for some time. - CBC, CMP reviewed - BCx2 2/2 - CBC, CMP reviewed - BCx2- pending - Overnight pulse ox results shows she will need O2 at d/c- case mgnt to set up. - Barium swallow tomorrow Code(s): J18.9 - PNEUMONIA, UNSPECIFIED ORGANISM (2) Cellulitis Current Visit: Yes Status: Acute Assessment & Plan: - acute on chronic - Levquin and vancomycin IV - Consider podiatry consult 2/2 - sxs improving Code(s): L03.90 - CELLULITIS, UNSPECIFIED (3) CHF (congestive heart failure) Current Visit: Yes Status: Acute Assessment & Plan: - Lasix 40 Q12 - Echo results pending - Consider cardiology consult - BNP on admission 9170 - I&O's - purewick 2/2 - D/c purewick - use bedside commode - echo tomorrow Code(s): I50.9 - HEART FAILURE, UNSPECIFIED (4) Weakness Current Visit: Yes Status: Acute Assessment & Plan: - PT eval and treat Code(s): R53.1 - WEAKNESS (5) Hypoxia Current Visit: Yes Status: Acute Assessment & Plan: - 2lNC 96%, baseline RA - see above plan for pneumonia 2/2 - weaned from O2 by RT Code(s): R09.02 - HYPOXEMIA (6) SOB (shortness of breath) Current Visit: Yes Status: Acute Assessment & Plan: - see above plan for pneumonia Code(s): R06.02 - SHORTNESS OF BREATH (7) GERD (gastroesophageal reflux disease) Current Visit: No Status: Chronic Assessment & Plan: - protonix Code(s): K21.9 - GASTRO-ESOPHAGEAL REFLUX DISEASE WITHOUT ESOPHAGITIS (8) HTN (hypertension) Current Visit: No Status: Chronic Qualifiers: Hypertension type: primary hypertension Qualified Code(s): I10 - Essential (primary) hypertension Assessment & Plan: - BP stable continue home meds Code(s): I10 - ESSENTIAL (PRIMARY) HYPERTENSION (9) Hypothyroid Current Visit: No Status: Chronic Assessment & Plan: - TSH WNL - Continue synthroid Code(s): E03.9 - HYPOTHYROIDISM, UNSPECIFIED Code(s): E03.9 - HYPOTHYROIDISM, UNSPECIFIED (10) CHRISTY (acute kidney injury) Current Visit: Yes Status: Acute Assessment & Plan: - HCTZ held today - Creat 1.23 - Consider holding losartan if not improved tomorrow. VTE: Plavix PPI: protonix Next of KIN: Child Que So [phone] D/C plan: 1-2 days Code status: Full Code(s): N17.9 - ACUTE KIDNEY FAILURE, UNSPECIFIED
[2024-05-18 05:13] LABS: Hematocrit 32.4 % (34.1-44.9); Hemoglobin 10.5 g/dL (11.2-15.7); Mean Cell Volume 94.7 fL (79.4-94.8); Mean Corpuscular Hemoglobin 30.7 pg (25.6-32.2); Mean Corpuscular Hgb Concent. 32.4 g/dL (32.2-35.5); Mean Platelet Volume 10.1 fL (9.4-12.3); Platelet Count 292 x10^3/uL (182-369); Red Blood Count 3.42 x10^6/uL (3.93-5.22); Red Cell Distribution Width 14.7 % (11.7-14.4); White Blood Count 9.3 x10^3/uL (3.98-10.04)
--- NOTE | 2024-05-18 05:16 | PCM.NOTE ---
Date and Time: 05/18/24511 Subjective Assessment: Ms Soliz is an 83-year-old with a history of CVA, hypertension, hypothyroidism, and GERD Admitted 05/15/24 [facility] pneumonia and cellulitis. Patient presented to the ED with complaints of progressive dyspnea and BLE edema. Of note patient had recent admission to [facility] where she was diagnosed with aspiration pneumonia. Upon arrival to ED patient was tachypneic, hypoxic, tachycardic and hypertensive. CXR demonstrates moderate bibasilar infiltrates/atelectasis/effusions. Respiratory viral panel negative. Lab findings upon admission with macrocytic anemia, mild hyponatremia, hypermagnesemia, and elevated BNP. IP treatment with vancomycin, levaquin, solumedrol, and diuresis with lasix. Plan for barium swallow and echo. 05/18/24: Met with patient bedside. No complaints this morning. Dyspnea, cough, BLE edema, and erythema improved. Plan for barium swallow and echo today. Patient requesting swing bed on discharge. CM working on this. CHRISTY improving. Will discontinue vanc. - Review of Systems Constitutional: Weakness Eyes: No Symptoms Ears, Nose, & Throat: No Symptoms Respiratory: Cough, Short Of Breath Cardiac: Edema (BLE trace) Abdominal/Gastrointestinal: No Symptoms Genitourinary Symptoms: No Symptoms Musculoskeletal: No Symptoms Skin: Cellulitis Neurological: No Symptoms Psychological: No Symptoms Endocrine: No Symptoms Hematologic/Lymphatic: No Symptoms Immunological/Allergic: No Symptoms Objective Exam General Appearance: no apparent distress Neurologic Exam: alert, oriented x 3, cooperative Skin Exam: other (BLE trace edema/mild erythema - no open wounds/drainage) Eye Exam: PERRL Ears, Nose, Throat Exam: normal ENT inspection Neck Exam: normal inspection Respiratory Exam: normal breath sounds, lungs clear Cardiovascular Exam: regular rate/rhythm, normal heart sounds Gastrointestinal/Abdomen Exam: soft, normal bowel sounds Extremity Exam: inflammation, swelling Back Exam: normal inspection Pelvic Exam: deferred Rectal Exam: deferred Objective Data Vital Signs: Vital Signs - 24 hr Temp Pulse Resp BP Pulse Ox 05/18/24 03:00 97.5 F 89 17 130/70 98 05/17/24 23:00 97.8 F 86 16 98/52 93 L 05/17/24 19:17 97.5 F 103 H 20 112/64 97 05/17/24 16:00 97.7 F 74 16 93/48 92 L 05/17/24 15:26 67 20 93 L 05/17/24 11:18 97.9 F 97 H 16 118/73 93 L 05/17/24 07:22 93 H 16 97 05/17/24 07:13 97.6 F 96 H 16 128/64 96 Pain Assessment - Last Documented Pain Intensity 0 Intake and Output: Intake & Output 05/15/24 05/16/24 05/17/24 05/18/24 11:59 11:59 11:59 11:59 Intake Total 380 1784 1000 Output Total 500 2250 1450 Balance -120 -587 -450 Weight 78 kg 77.4 kg Lab Results: Lab Results-Last 24 Hours 05/17/24 05/17/24 Range/Units 06:15 06:15 WBC 4.7 (3.98-10.04) x10^3/uL RBC 3.42 L (3.93-5.22) x10^6/uL Hgb 10.4 L (11.2-15.7) g/dL Hct 32.5 L (34.1-44.9) % MCV 95.0 H (79.4-94.8) fL MCH 30.4 (25.6-32.2) pg MCHC 32.0 L (32.2-35.5) g/dL RDW 14.7 H (11.7-14.4) % Plt Count 241 (182-369) x10^3/uL MPV 9.9 (9.4-12.3) fL Sodium 133 L (135-145) mmol/L Potassium 4.0 (3.5-5.1) mmol/L Chloride 99 (98-107) mmol/L Carbon Dioxide 28 (22-30) mmol/L Anion Gap 9.7 (5-15) MEQ/L BUN 32 H (7-17) mg/dL Creatinine 1.23 H (0.52-1.04) mg/dL Estimated GFR 43.3 ML/MIN Glucose 183 H (74-106) mg/dL Calcium 8.4 (8.4-10.2) mg/dL Total Bilirubin 0.70 (0.2-1.3) mg/dL AST 23 (14-36) U/L ALT 26 (0-35) U/L Alkaline Phosphatase 62 (38-126) U/L Serum Total Protein 5.5 L (6.3-8.2) g/dL Albumin 3.0 L (3.5-5.0) g/dL Radiology Exams: Radiology Procedures Category Date Time Status BARIUM SWALLOW ESOPHOGRAM Routine Exams 05/18/24 11:02 Ordered CHEST 1 VIEW (PORTABLE) Routine Exams 05/18/24 08:00 Ordered Assessment/Plan (1) Pneumonia Current Visit: Yes Status: Acute Assessment & Plan: - Recent admission at [facility] for aspiration pneumonia- no swallow study done - Barium swallow today - appreciate ST recommendations - CXR 05/15/24demonstrates moderate bibasilar infiltrates/atelectasis/effusions. -Repeat CXR 05/18 with minimal improvement in bibasilar infiltrates/atelectasis/effusions. - Continue Levaquin, Duonebs, steroids- can dc vancomycin - ON baseline Room air -supplemental oxygen with goal spo2 > 92% - - Overnight pulse ox results shows she will need O2 at d/c- case mgnt to set up. - CBC, CMP reviewed - WBC WNL at 9.3 - BCx2 reviewed/pre-coates- NGTD Code(s): J18.9 - PNEUMONIA, UNSPECIFIED ORGANISM (2) Cellulitis Current Visit: Yes Status: Acute Assessment & Plan: - acute on chronic - Continue Levquin -discontinue vanc - Consider podiatry consult -caroline borders -elevated affected limbs -Culture any drainage -none noted on exam today Code(s): L03.90 - CELLULITIS, UNSPECIFIED (3) CHRISTY (acute kidney injury) Current Visit: Yes Status: Acute Assessment & Plan: - HCTZ held - Creat reviewed at 1.15 - baseline around 1 - improving - Consider holding losartan if no improvement Code(s): N17.9 - ACUTE KIDNEY FAILURE, UNSPECIFIED (4) CHF (congestive heart failure) Current Visit: Yes Status: Acute Assessment & Plan: - Lasix 40 Q12 - Echo results pending - Consider cardiology consult - BNP on admission 9167 - I&O's -strict -CXR from 05/18/24 with minimal improvement in demonstrates bibasilar infiltrates/atelectasis/effusions Code(s): I50.9 - HEART FAILURE, UNSPECIFIED (5) Hypoxia Current Visit: Yes Status: Acute Assessment & Plan: - At baseline RA - supplemental oxygen for spo2 goal > 92% - see above plan for pneumonia - Overnight pulse ox results shows she will need O2 at d/c- case mgnt to set up. Code(s): R09.02 - HYPOXEMIA (6) SOB (shortness of breath) Current Visit: Yes Status: Acute Assessment & Plan: 2/2 to pneumonia - see plan above Code(s): R06.02 - SHORTNESS OF BREATH (7) Weakness Current Visit: Yes Status: Acute Assessment & Plan: -most likely secondary to pneumonia - PT eval and treat -Swing bed per pt request - CM working on this Code(s): R53.1 - WEAKNESS (8) GERD (gastroesophageal reflux disease) Current Visit: No Status: Chronic Assessment & Plan: - protonix Code(s): K21.9 - GASTRO-ESOPHAGEAL REFLUX DISEASE WITHOUT ESOPHAGITIS (9) HTN (hypertension) Current Visit: No Status: Chronic Qualifiers: Hypertension type: primary hypertension Qualified Code(s): I10 - Essential (primary) hypertension Assessment & Plan: - BP stable continue home meds Code(s): I10 - ESSENTIAL (PRIMARY) HYPERTENSION (10) Hypothyroid Current Visit: No Status: Chronic Assessment & Plan: - TSH reviewed and WNLat 3.505 - Continue synthroid VTE: Plavix PPI: protonix Next of KIN: Child Que Soliz [phone] D/C plan: 2-3 days Code status: Full Code(s): E03.9 - HYPOTHYROIDISM, UNSPECIFIED
[2024-05-18 05:38] LABS: ALBUMIN 3.1 g/dL (3.5-5.0); ANION GAP 11.3 MEQ/L (5-15); BILIRUBIN,TOTAL 0.6 mg/dL (0.2-1.3); Calcium 8.7 mg/dL (8.4-10.2); Creatinine 1 1.15 mg/dL (0.52-1.04); Total Protein 5.4 g/dL (6.3-8.2)
--- NOTE | 2024-05-18 08:38 | XRAY ---
Indication: Pneumonia. Comparison: May 15, 2024 Portable chest again demonstrates bibasilar infiltrates/atelectasis/effusions minimally improved. Heart not enlarged. No new cardiopulmonary abnormalities.
[2024-05-18] MEDS ORDERED: solu-MEDROL ONE (09:26)
--- NOTE | 2024-05-18 13:48 | XRAY ---
Indication: Aspiration pneumonia. Modified barium swallow study performed by the department of speech therapy with fluoroscopic assistance provided. Patient ingested multiple consistencies of liquids and solids. Full report and recommendations will be reported separately. Approximately 1 minute 8 seconds fluoroscopy used.
[2024-05-18] MEDS: Lasix 40 MG/4 ML IV SCH (21:50)
--- NOTE | 2024-05-19 05:02 | PCM.NOTE ---
Date and Time: 05/19/24 0501 Subjective Assessment: Ms Soliz is an 83-year-old with a history of CVA, hypertension, hypothyroidism, and GERD Admitted 05/15/24 [facility] pneumonia and cellulitis. Patient presented to the ED with complaints of progressive dyspnea and BLE edema. Of note patient had recent admission to [facility] where she was diagnosed with aspiration pneumonia. Upon arrival to ED patient was tachypneic, hypoxic, tachycardic and hypertensive. CXR demonstrates moderate bibasilar infiltrates/atelectasis/effusions. Respiratory viral panel negative. Lab findings upon admission with macrocytic anemia, mild hyponatremia, hypermagnesemia, and elevated BNP. IP treatment with vancomycin, levaquin, solumedrol, and diuresis with lasix. Barium swallow showing mild to moderate pharyngeal dysphagia with aspiration. ST recommendations for regular diet with compensatory strategies such as upright positioning for all meals Small bites and drinks,Dry swallows, alternate solids/liquids/chin tuck. 05/18/24: Met with patient bedside. No complaints this morning. Dyspnea, cough, BLE edema, and erythema improved. Plan for barium swallow and echo today. Patient requesting swing bed on discharge. CM working on this. CHRISTY improving. Will discontinue vanc. Objective Data Vital Signs: Vital Signs - 24 hr Temp Pulse Resp BP Pulse Ox 05/19/24 04:00 97.8 F 87 16 116/54 95 05/19/24 00:00 97.8 F 82 18 106/54 93 L 05/18/24 20:00 97.9 F 117 H 20 83/45 94 L 05/18/24 15:00 97.5 F 88 17 100/59 93 L 05/18/24 11:00 97.3 F 85 17 127/59 95 05/18/24 08:00 85 16 93 L 05/18/24 07:13 81 16 91 L 05/18/24 07:00 97.8 F 84 17 117/69 93 L Pain Assessment - Last Documented Pain Intensity 0 Intake and Output: Intake & Output 05/16/24 05/17/24 05/18/24 05/19/24 11:59 11:59 11:59 11:59 Intake Total 380 1784 1120 383 Output Total 500 2250 1450 225 Balance -120 -466 -330 158 Weight 78 kg 77.4 kg 74.3 kg 74.3 kg Lab Results: Lab Results-Last 24 Hours 05/18/24 05/18/24 Range/Units 05:05 05:05 WBC 9.3 (3.98-10.04) x10^3/uL RBC 3.42 L (3.93-5.22) x10^6/uL Hgb 10.5 L (11.2-15.7) g/dL Hct 32.4 L (34.1-44.9) % MCV 94.7 (79.4-94.8) fL MCH 30.7 (25.6-32.2) pg MCHC 32.4 (32.2-35.5) g/dL RDW 14.7 H (11.7-14.4) % Plt Count 292 (182-369) x10^3/uL MPV 10.1 (9.4-12.3) fL Sodium 133 L (135-145) mmol/L Potassium 4.0 (3.5-5.1) mmol/L Chloride 96 L (98-107) mmol/L Carbon Dioxide 30 (22-30) mmol/L Anion Gap 11.3 (5-15) MEQ/L BUN 43 H (7-17) mg/dL Creatinine 1.15 H (0.52-1.04) mg/dL Estimated GFR 47.0 ML/MIN Glucose 186 H (74-106) mg/dL Calcium 8.7 (8.4-10.2) mg/dL Total Bilirubin 0.60 (0.2-1.3) mg/dL AST 25 (14-36) U/L ALT 29 (0-35) U/L Alkaline Phosphatase 59 (38-126) U/L Serum Total Protein 5.4 L (6.3-8.2) g/dL Albumin 3.1 L (3.5-5.0) g/dL Radiology Exams: Radiology Procedures Category Date Time Status CHEST 1 VIEW (PORTABLE) Routine Exams 05/18/24 08:00 Completed ECHO W/2D AND DOPPLER [US] Routine Exams 05/18/24 08:00 Taken MODIFIED BARIUM SWALLOW EXAM Urgent Exams 05/18/24 07:56 Completed Multi-Disciplinary Progress Notes: Multi-Disciplinary Progress Notes 05/18/24 15:01 Mod Barium Swallow Note by Ramón([place]#[id number],Tricia Modified Barium Swallow Study ST Modified Barium Swallow Study Start: 05/18/24 14:31 Freq: Status: Active Protocol: Document 05/18/24 14:35 BM (Rec: 05/18/24 15:01 BM [id number]) E-Sign 05/18/24 14:35 BM Modified Barium Swallow Reason for Assessment Primary Diagnosis R06.02 - SHORTNESS OF BREATH Primary Diagnosis (cont) R09.02 - HYPOXEMIA Treatment Diagnosis #1 R13.13 - DYSPHAGIA, PHARYNGEAL PHASE Reason for Assessment PATIENT REFERRED FOR MBS STUDY DUE TO BIBASILAR INFILTRATES, HX OF PNEUMONIA, AND NOW SOB AND HYPPOXEMIA. Onset Date 05/15/24 Date of Evaluation/SOC 05/18/24 Past Medical History Neurological History Stroke ENT History Cataracts Endocrine History Hypothyroidism Respiratory History No Pertinent History Cardiac History Arrhythmia,High Cholesterol, Hypertension GI History [PCS.GI] GERD,Gallbladder Disease, Hernia History No Pertinent History Femal Reproductive Disorders Breast Cancer Musculoskelatal History Degenerative Disk Disease, Osteoarthritis Pyscho-Social History No Pertinent History Other Medical History REPORTS CVA AFFECTED SKIN PRIMARILY WITH NUMBNESS BUT 90 % RESOLVED. PMHX: GERD, BREAST CA ( LUMPECTOMY LEFT AND RADIATION) 1999, LEFT TKR 2011, GASTRIC BYPASS Bile Duct infection Hiatal Hernia Past Surgical History Hx Anesthesia Reactions No Hx Malignant Hyperthermia No Neuro Surgical History No Pertinent History ENT Surgical History Cataract Surgery Respiratory Surgical History No Pertinent History Cardiac Surgical History No Pertinent History Gastrointestinal Surgical History Cholecystectomy Genitourinary Surgical History No Pertinent History Female Surgical History Hysterectomy,Lumpectomy Musculskeletal Surgical Hx Orthopedic Surgery Other Surgical History gastric bypass, carpal tunnel, left knee replacement, bile duct Pain Assessment Do you have pain on swallowing No Non-verbal signs & symptoms of pain No Modified Barium Swallow View This evaluation was completed to assess the functioning of the oral and pharyngeal phases of swallowing and to determine if the patient is aspirating or at risk for aspiration. Modified Barium Swallow View Lateral View Consistencies Assessed Barium trials included: Thin Liquid via Spoon,Thin Liquid via Cup,Thin Liquid via Straw,[place] Liquid via Spoon ,Thin Honey Liquid via spoon, Honey Liquid via Spoon,Pudding Liquid via spoon,Pureed Food, Paste on a Cookie Aspiration Risk Aspiration Observed Yes Amount of Aspiration Observed Small Patient considered at risk of aspiration Yes during oral intake Patient is at risk for aspiration Before the swallow,During the swallow Severity of Aspiration Risk Mild to Moderate Penetration into Laryngeal Vestibule Yes Penetration occured with Thin Liquid Reason for aspirational risk: PATIENT AT RISK FOR ASPIRATION BEFORE THE SWALLOW DUE TO PREMATURE SPILLAGE INTO VALLECULAE PRIOR TO SWALLOW INITIATION. PATIENT AT RISK FOR ASPIRATION DURING THE SWALLOW DUE TO DECREASED LARYNGEAL VESTIBULE CLOSURE, RESULTING IN ASPIRATION BELOW THE VOCAL FOLDS. 8-Point Penetration-Aspiration Scale (Rosenbek) 2.Material enters the airway,remains Yes above the vocal folds and IS ejected from the airway 7.Material enters the airway,passes Yes below the vocal folds and IS NOT ejected from the trachea despite effort. Consistency Thin Method of presentation Cup,Straw Comment: #2 PENETRATION OF CUP DRINK VOLUME THIN LIQUID BARIUM, WITHOUT ASPIRATION. #7 ASPIRATION BELOW THE VOCAL FOLDS, NOT SUFFICIENTLY EJECTED DESPITE EFFORT, WITH STRAW DRINK LARGE VOLUME. Residue/Retention Residue Observed Valleculae Right,Valleculae Left,Tongue Base Esophageal Function No Impairment (WFL) Other UNABLE TO FULLY ASSESS ESOPHAGEAL FUNCTIONING DURING THIS MBS STUDY DUE TO MOVEMENT LIMITATIONS OF EQUIPMENT UTILIZED. Assessment of Swallow Phases Oral Phase Labial Closure No Impairment (WFL) Bolus Formation Yes Bolus Control Pooling L/R No Impairment (WFL) Bolus Control under Tongue No Impairment (WFL) Bolus Control Scattered Loss No Impairment (WFL) Mastication Effectiveness No Impairment (WFL) A/P Bolus Propulsion No Impairment (WFL) Premature Spillage into: Valleculae A/P Lingual Propulsion Delay No Impairment (WFL) Lingual Movement No Impairment (WFL) Residue Clearing/Sensitivity No Impairment (WFL) Aspiration No Swallow Initiation Delay Minimal Impairment Swallow Delay Time (sec) < 1 Other Oral Phase Observations ASPIRATION OCCURRED DURING PHARYNGEAL PHASE OF SWALLOW. SEE PHARYNGEAL PHASE OBSERVATION COMMENT. PATIENT WITH PREMATURE SPILLAGE INTO VALLECULAE WITH ALL CONSISTENCIES DUE TO MILD SWALLOW INITIATION DELAY. PATIENT INDEPENDENT WITH RESIDUE CLEARING USING ADDITIONAL SWALLOWS. Pharyngeal Phase Base of Tongue Retraction No Impairment (WFL) Epiglottic Coverage No Impairment (WFL) Laryngeal Elevation Mild Impairment Reduced Anterior Laryngeal Movement No Laryngeal Closure Mild Impairment Vallecular Retention Clearing Minimal Impairment Pharyn. Wall Residue Clearing No Impairment (WFL) Pyriform Sinus Retention No Impairment (WFL) Penetration Yes Aspiration Yes Cricopharyngeal Dysfunction No Cough Spontaneous Other Pharyngeal Phase Observation PATIENT WITH LARYNGEAL VESTIBULE PENETRATION WITHOUT ASPIRATION WITH THIN LIQUID CONSISTENCY BARIUM, PRESENTED VIA TEASPOON. SUFFICIENTLY CLEARED WITH SWALLOW COMPLETION. PATIENT WITH ASPIRATION OCCURRING DURING THE PHARYNGEAL PHASE OF SWALLOW DUE TO INCOMPLETE LARYNGEAL VESTIBULE CLOSURE, DECREASED LARYNGEAL ELEVATION, DECREASED TIMING/ COORDINATION OF SWALLOW. Clinical Interpretation Clinical Interpretation PATIENT WITH [id number] PHARYNGEAL DYSPHAGIA WITH ASPIRATION. Speech Therapy Teaching Record Teaching Summary Results/Recommendations Learning Preferences Discussion Barriers to Learning None Readiness for Learning Accepting Teaching Methods Discussion,Audiovisual Teaching Recipient Patient Response to Teaching Verbalize understanding ST Recommendations Diet Consistency Regular Comment CONTINUE CURRENT DIET. Liquid Consistency Regular Thin Comment SEE COMPENSATORY STRATEGIES INDICATED BELOW FOR SAFE SWALLOW. Follow-Up MBS Evaluation prior to initiation of No oral intake Primary Physician regarding findings/ Yes recommendations Safe Swallow Compensatory Strategies Compensatory Strategies Upright Position for all meals ,Remain upright after meals, Small bites and drinks,Dry swallows,Alternate solids/ liquids,Chin Tuck Medication Instructions Per Patient Preference Staff/Family Suggestions Reinforce Treatment Program Rehabilitation Potential: GOOD Additional Comments: DISCUSSED RESULTS/ RECOMMENDATIONS WITH PATIENT. PATIENT INDICATED UNDERSTANDING OF INFORMATION PROVIDED, AND WAS ABLE TO REPEAT RECOMMENDATIONS INDEPENDENTLY. Signatures Speech Therapist Signature TAZ, MS, CCC/BOOKING MANAGER Physician Signature DR Tierra FROST, RADIOLOGIST Initialized on 05/18/24 15:01 - END OF NOTE 05/18/24 13:02 Case Management Note by Mar Burnham PATIENT HAS A [facility]. THEY WERE NOTIFIED PATIENT HERE INPT. THEY WILL NEED NOTIFIED AT TIME OF DC. AT [phone]. THEY WILL NEED FAXED THE DC INSTRUCTIONS, DC MED LIST AND DC SUMMARY AT [phone] Initialized on 05/18/24 13:02 - END OF NOTE Assessment/Plan (1) Pneumonia Current Visit: Yes Status: Acute Assessment & Plan: - Recent admission at [facility] for aspiration pneumonia- no swallow study done - Barium swallow today - appreciate ST recommendations - CXR 05/15/24demonstrates moderate bibasilar infiltrates/atelectasis/effusions. -Repeat CXR 2/3 with minimal improvement in bibasilar infiltrates/atelectasis/effusions. - Continue Levaquin, Duonebs, steroids- can dc vancomycin - ON baseline Room air -supplemental oxygen with goal spo2 > 92% - - Overnight pulse ox results shows she will need O2 at d/c- case mgnt to set up. - CBC, CMP reviewed - WBC WNL at 9.3 - BCx2 reviewed/pre-coates- NGTD 05/19: -Barium swallow showing mild to moderate pharyngeal dysphagia with aspiration. ST recommendations for regular diet with compensatory strategies such as upright positioning for all meals Small bites and drinks,Dry swallows, alternate solids/liquids/chin tuck. Code(s): J18.9 - PNEUMONIA, UNSPECIFIED ORGANISM (2) Cellulitis Current Visit: Yes Status: Acute Assessment & Plan: - acute on chronic - Continue Levquin -discontinue vanc - Consider podiatry consult -caroline borders -elevated affected limbs -Culture any drainage -none noted on exam today Code(s): L03.90 - CELLULITIS, UNSPECIFIED (3) CHRISTY (acute kidney injury) Current Visit: Yes Status: Acute Assessment & Plan: - HCTZ held - Creat reviewed at 1.15 - baseline around 1 - improving - Consider holding losartan if no improvement 05/19/24: -Hold losartan -creat reviewed at 1.22 -Will need recheck with PCP Code(s): N17.9 - ACUTE KIDNEY FAILURE, UNSPECIFIED (4) CHF (congestive heart failure) Current Visit: Yes Status: Acute Assessment & Plan: - Lasix 40 Q12 - Echo results pending - Consider cardiology consult - BNP on admission 9170 - I&O's -strict -CXR from 05/18/24 with minimal improvement in demonstrates bibasilar infiltrates/atelectasis/effusions Code(s): I50.9 - HEART FAILURE, UNSPECIFIED (5) Hypoxia Current Visit: Yes Status: Acute Assessment & Plan: - At baseline RA - supplemental oxygen for spo2 goal > 92% - see above plan for pneumonia - Overnight pulse ox results shows she will need O2 at d/c- case mgnt to set up. 05/20: -Patient on RA at 95% Code(s): R09.02 - HYPOXEMIA (6) SOB (shortness of breath) Current Visit: Yes Status: Acute Assessment & Plan: 05/17 to pneumonia - see plan above Code(s): R06.02 - SHORTNESS OF BREATH (7) Weakness Current Visit: Yes Status: Acute Assessment & Plan: -most likely secondary to pneumonia - PT eval and treat -Swing bed per pt request - CM working on this Code(s): R53.1 - WEAKNESS (8) GERD (gastroesophageal reflux disease) Current Visit: No Status: Chronic Assessment & Plan: - protonix Code(s): K21.9 - GASTRO-ESOPHAGEAL REFLUX DISEASE WITHOUT ESOPHAGITIS (9) HTN (hypertension) Current Visit: No Status: Chronic Qualifiers: Hypertension type: primary hypertension Qualified Code(s): I10 - Essential (primary) hypertension Assessment & Plan: - BP stable continue home meds Code(s): I10 - ESSENTIAL (PRIMARY) HYPERTENSION (10) Hypothyroid Current Visit: No Status: Chronic Assessment & Plan: - TSH reviewed and WNLat 3.505 - Continue synthroid VTE: Plavix PPI: protonix Next of KIN: Soni Soliz [phone] D/C plan: 2-3 days Code status: Full Code(s): J18.9 - PNEUMONIA, UNSPECIFIED ORGANISM (2) Cellulitis Current Visit: Yes Status: Acute Code(s): L03.90 - CELLULITIS, UNSPECIFIED (3) CHRISTY (acute kidney injury) Current Visit: Yes Status: Acute Code(s): N17.9 - ACUTE KIDNEY FAILURE, UNSPECIFIED (4) CHF (congestive heart failure) Current Visit: Yes Status: Acute Code(s): I50.9 - HEART FAILURE, UNSPECIFIED (5) Hypoxia Current Visit: Yes Status: Acute Code(s): R09.02 - HYPOXEMIA (6) SOB (shortness of breath) Current Visit: Yes Status: Acute Code(s): R06.02 - SHORTNESS OF BREATH (7) Weakness Current Visit: Yes Status: Acute Code(s): R53.1 - WEAKNESS (8) GERD (gastroesophageal reflux disease) Current Visit: No Status: Chronic Code(s): K21.9 - GASTRO-ESOPHAGEAL REFLUX DISEASE WITHOUT ESOPHAGITIS (9) HTN (hypertension) Current Visit: No Status: Chronic Qualifiers: Hypertension type: primary hypertension Qualified Code(s): I10 - Essential (primary) hypertension Code(s): I10 - ESSENTIAL (PRIMARY) HYPERTENSION (10) Hypothyroid Current Visit: No Status: Chronic Code(s): E03.9 - HYPOTHYROIDISM, UNSPECIFIED
[2024-05-19 05:09] LABS: Absolute Neutrophil Ct (ANC) 6.73 x10^3/uL (1.56-6.13); BASOPHIL % 0.1 % (0.1-1.2); Basophil (Absolute #) 0.01 x10^3/uL (0.01-0.08); Eosinophil % 0.1 % (0.7-5.8); Eosinophil (Absolute #) 0.01 x10^3/uL (0.04-0.36); Hematocrit 32.3 % (34.1-44.9); Hemoglobin 10.6 g/dL (11.2-15.7); IMMATURE GRAN # 0.05 x10^3u/L (0.001-0.031); IMMATURE GRAN % 0.6 % (0.001-0.429); Lymphocyte (Absolute #) 0.86 x10^3/uL (1.18-3.74); Lymphocytes % 10.7 % (19.3-51.7); Mean Cell Volume 94.2 fL (79.4-94.8); Mean Corpuscular Hemoglobin 30.9 pg (25.6-32.2); Mean Corpuscular Hgb Concent. 32.8 g/dL (32.2-35.5); Mean Platelet Volume 9.6 fL (9.4-12.3); Monocyte (Absolute #) 0.37 x10^3/uL (0.24-0.86); Monocytes % 4.6 % (4.7-12.5); Neutrophil % 83.9 % (34.0-71.1); Platelet Count 332 x10^3/uL (182-369); Red Blood Count 3.43 x10^6/uL (3.93-5.22); Red Cell Distribution Width 14.8 % (11.7-14.4)
[2024-05-19 05:29] LABS: ALBUMIN 3.1 g/dL (3.5-5.0); ANION GAP 10.4 MEQ/L (5-15); BILIRUBIN,TOTAL 0.6 mg/dL (0.2-1.3); Calcium 8.8 mg/dL (8.4-10.2); Creatinine 1 1.22 mg/dL (0.52-1.04); EST GLOMERULAR FILTRATION RATE 43.8 ML/MIN; Potassium 3.8 mmol/L (3.5-5.1); Total Protein 5.4 g/dL (6.3-8.2)
[2024-05-19] MEDS ORDERED: Lasix 40 MG/4 ML IV SCH (10:00)
[2024-05-19 12:09] VITALS: PULSE 96
--- NOTE | 2024-05-19 15:47 | PCM.DS ---
Discharge Summary Date of Admission: 05/15/24 21:49 Date of Discharge: 05/19/24 Admitting Physician: ZI GUAN MD Primary Care Provider: CAROLINE ZAVALETA Allergies Allergies Penicillins Allergy (Verified 05/15/24 19:18) Hospital Summary - Hospital Course Hospital Course: Ms Soliz is an 83-year-old with a history of CVA, hypertension, hypothyroidism, and GERD Admitted 05/15/24 [facility] pneumonia and cellulitis. Patient presented to the ED with complaints of progressive dyspnea and BLE edema. Of note patient had recent admission to [facility] where she was diagnosed with aspiration pneumonia. Upon arrival to ED patient was tachypneic, hypoxic, tachycardic and hypertensive. CXR demonstrates moderate bibasilar infiltrates/atelectasis/effusions. Respiratory viral panel negative. Lab findings upon admission with macrocytic anemia, mild hyponatremia, hypermagnesemia, and elevated BNP. IP treatment with vancomycin, levaquin, solumedrol, and diuresis with lasix. Barium swallow showing mild to moderate pharyngeal dysphagia with aspiration. ST recommendations for regular diet with compensatory strategies such as upright positioning for all meals Small bites and drinks,Dry swallows, alternate solids/liquids/chin tuck. Dyspnea and cough improved. Now on RA. Patient to have overnight pulse ox -will send home with patient. She has follow up scheduled with her energy specialist Dr. Malik. Echo showing EF of 60%. Losartan/HCTZ held due to kidney function. Patient to follow up with PCP Saturday for repeat CMP. Dr. Levin office has been notified and will call patient to set up. Patient to keep BP log and daily weights. Advised if she gains > 3lbs in one day or 5LBs in one week she is to contact cardiology. BLE edema and erythema greatly improved. Will send home on levaquin for coverage of cellulitis and pneumonia. Discharge Note Latest Assessment & Plan (1) Pneumonia Current Visit: Yes Status: Acute Assessment & Plan: - Recent admission at [facility] for aspiration pneumonia- no swallow study done - Barium swallow today - appreciate ST recommendations - CXR 05/15/24demonstrates moderate bibasilar infiltrates/atelectasis/effusions. -Repeat CXR 2/3 with minimal improvement in bibasilar infiltrates/atelectasis/effusions. - Continue Levaquin, Duonebs, steroids- can dc vancomycin - ON baseline Room air -supplemental oxygen with goal spo2 > 92% - - Overnight pulse ox results shows she will need O2 at d/c- case mgnt to set up. - CBC, CMP reviewed - WBC WNL at 9.3 - BCx2 reviewed/pre-coates- NGTD 05/19: -Barium swallow showing mild to moderate pharyngeal dysphagia with aspiration. ST recommendations for regular diet with compensatory strategies such as upright positioning for all meals Small bites and drinks,Dry swallows, alternate solids/liquids/chin tuck. Code(s): J18.9 - PNEUMONIA, UNSPECIFIED ORGANISM (2) Cellulitis Current Visit: Yes Status: Acute Assessment & Plan: - acute on chronic - Continue Levquin -discontinue vanc - Consider podiatry consult -caroline borders -elevated affected limbs -Culture any drainage -none noted on exam today Code(s): L03.90 - CELLULITIS, UNSPECIFIED (3) CHRISTY (acute kidney injury) Current Visit: Yes Status: Acute Assessment & Plan: - HCTZ held - Creat reviewed at 1.15 - baseline around 1 - improving - Consider holding losartan if no improvement 05/19/24: -Hold losartan -creat reviewed at 1.22 -Will need recheck with PCP Code(s): N17.9 - ACUTE KIDNEY FAILURE, UNSPECIFIED (4) CHF (congestive heart failure) Current Visit: Yes Status: Acute Assessment & Plan: - Lasix 40 Q12 - Echo results with EF at 60% - Consider cardiology consult - BNP on admission 9170 - I&O's -strict -CXR from 05/18/24 with minimal improvement in demonstrates bibasilar infiltrates/atelectasis/effusions Code(s): I50.9 - HEART FAILURE, UNSPECIFIED (5) Hypoxia Current Visit: Yes Status: Acute Assessment & Plan: - At baseline RA - supplemental oxygen for spo2 goal > 92% - see above plan for pneumonia - Overnight pulse ox results shows she will need O2 at d/c- case mgnt to set up. 05/20: -Patient on RA at 95% Code(s): R09.02 - HYPOXEMIA (6) SOB (shortness of breath) Current Visit: Yes Status: Acute Assessment & Plan: 05/17 to pneumonia - see plan above Code(s): R06.02 - SHORTNESS OF BREATH (7) Weakness Current Visit: Yes Status: Acute Assessment & Plan: -most likely secondary to pneumonia - PT eval and treat -Swing bed per pt request - CM working on this Code(s): R53.1 - WEAKNESS (8) GERD (gastroesophageal reflux disease) Current Visit: No Status: Chronic Assessment & Plan: - protonix Code(s): K21.9 - GASTRO-ESOPHAGEAL REFLUX DISEASE WITHOUT ESOPHAGITIS (9) HTN (hypertension) Current Visit: No Status: Chronic Qualifiers: Hypertension type: primary hypertension Qualified Code(s): I10 - Essential (primary) hypertension Assessment & Plan: - BP stable continue home meds Code(s): I10 - ESSENTIAL (PRIMARY) HYPERTENSION (10) Hypothyroid Current Visit: No Status: Chronic Assessment & Plan: - TSH reviewed and WNLat 3.505 - Continue synthroid VTE: Plavix PPI: protonix Next of KIN: Soni Soliz [phone] D/C plan: 2-3 days Code status: Full Code(s): J18.9 - PNEUMONIA, UNSPECIFIED ORGANISM I spent 35 minutes [id number] with the patient on the day of discharge performing discharge exam, discussing hospital stay and discharge instructions with patient and caregivers, preparation of discharge records, prescriptions & referral forms and addressing any questions/concerns the patient had as documented above. - Vitals & Intake/Output Vital Signs: Vital Signs Temperature 97.8 F 05/19/24 12:00 Pulse Rate 96 H 05/19/24 12:00 Respiratory Rate 15 05/19/24 12:00 Blood Pressure 108/56 05/19/24 12:00 O2 Sat by Pulse Oximetry 93 L 05/19/24 12:00 Intake & Output: Intake & Output 05/17/24 05/18/24 05/19/24 05/20/24 11:59 11:59 11:59 11:59 Intake Total 1784 1120 963 480 Output Total 2250 1450 225 Balance -466 -330 738 480 Weight 77.4 kg 74.3 kg 72.8 kg - Lab Result Diagrams: 05/19/24 04:55 05/19/24 04:55 Lab Results-Last 24 Hrs: Lab Results-Last 24 Hours 05/19/24 05/19/24 Range/Units 04:55 04:55 WBC 8.0 (3.98-10.04) x10^3/uL RBC 3.43 L (3.93-5.22) x10^6/uL Hgb 10.6 L (11.2-15.7) g/dL Hct 32.3 L (34.1-44.9) % MCV 94.2 (79.4-94.8) fL MCH 30.9 (25.6-32.2) pg MCHC 32.8 (32.2-35.5) g/dL RDW 14.8 H (11.7-14.4) % Plt Count 332 (182-369) x10^3/uL MPV 9.6 (9.4-12.3) fL Gran % 83.9 H (34.0-71.1) % Immature Gran % (Auto) 0.6 H (0.001-0.429) % Nucleat RBC Rel Count 0.0 (0.00-0.2) % Eos # (Auto) 0.01 L (0.04-0.36) x10^3/uL Immature Gran # (Auto) 0.05 H (0.001-0.031) x10^3u/L Absolute Lymphs (auto) 0.86 L (1.18-3.74) x10^3/uL Absolute Monos (auto) 0.37 (0.24-0.86) x10^3/uL Absolute Nucleated RBC 0.00 (0.00-0.012) x10^3u/L Lymphocytes % 10.7 L (19.3-51.7) % Monocytes % 4.6 L (4.7-12.5) % Eosinophils % 0.1 L (0.7-5.8) % Basophils % 0.1 (0.1-1.2) % Absolute Granulocytes 6.73 H (1.56-6.13) x10^3/uL Basophils # 0.01 (0.01-0.08) x10^3/uL Sodium 134 L (135-145) mmol/L Potassium 3.8 (3.5-5.1) mmol/L Chloride 96 L (98-107) mmol/L Carbon Dioxide 31 H (22-30) mmol/L Anion Gap 10.4 (5-15) MEQ/L BUN 48 H (7-17) mg/dL Creatinine 1.22 H (0.52-1.04) mg/dL Estimated GFR 43.8 ML/MIN Glucose 148 H (74-106) mg/dL Calcium 8.8 (8.4-10.2) mg/dL Total Bilirubin 0.60 (0.2-1.3) mg/dL AST 28 (14-36) U/L ALT 31 (0-35) U/L Alkaline Phosphatase 56 (38-126) U/L Serum Total Protein 5.4 L (6.3-8.2) g/dL Albumin 3.1 L (3.5-5.0) g/dL Micro Results-Entire Visit: Microbiology 05/16/24 15:17 Blood Culture - Preliminary Blood 05/16/24 15:13 Blood Culture - Preliminary Blood - Radiology Exams Ordered Rad Exams-Entire Visit: Radiology Procedures Category Date Time Status CHEST 1 VIEW (PORTABLE) Routine Exams 05/18/24 08:00 Completed ECHO W/2D AND DOPPLER [US] Routine Exams 05/18/24 08:00 Taken MODIFIED BARIUM SWALLOW EXAM Urgent Exams 05/18/24 07:56 Completed - Procedures and Test Procedures and Tests throughout Hospitalization: Therapy Orders & Screens 05/15/24 21:54 Oxygen Nasal Cannula 2 lpm Comment: Respiratory Therapy Consult ONCE Comment: Reason For Exam: 05/15/24 23:36 Respiratory Therapy Assessment DAILY Comment: Diagnosis: CHF Exacerbation, hypoxia, sob 05/16/24 14:13 PT Eval & Treat (MD Order) ONCE Reason for Eval:: weakness Diagnosis: shortness of breath 05/17/24 07:44 RT Miscellaneous Order ROUTINE Comment: Physician Instructions: Keep sat > 92% Reason For Exam: Wean O2 - baseline room air Diagnosis: shortness of breath 05/17/24 11:52 Incentive Spirometry TID Comment: Diagnosis: shortness of breath Discharge Exam General Appearance: no apparent distress Neurologic Exam: alert, oriented x 3, cooperative Eye Exam: PERRL Ears, Nose, Throat Exam: normal ENT inspection Neck Exam: normal inspection Respiratory Exam: diminished breath sounds Cardiovascular Exam: regular rate/rhythm, normal heart sounds Gastrointestinal/Abdomen Exam: soft, normal bowel sounds Pelvic Exam: deferred Rectal Exam: deferred Back Exam: normal inspection Extremity Exam: normal inspection Skin Exam: normal color Final Diagnosis/Problem List - Final Discharge Diagnosis/Problem (1) Pneumonia Current Visit: Yes Status: Acute Code(s): J18.9 - PNEUMONIA, UNSPECIFIED ORGANISM (2) Cellulitis Current Visit: Yes Status: Acute Code(s): L03.90 - CELLULITIS, UNSPECIFIED (3) CHRISTY (acute kidney injury) Current Visit: Yes Status: Acute Code(s): N17.9 - ACUTE KIDNEY FAILURE, UNSPECIFIED (4) CHF (congestive heart failure) Current Visit: Yes Status: Acute Code(s): I50.9 - HEART FAILURE, UNSPECIFIED (5) Hypoxia Current Visit: Yes Status: Resolved Code(s): R09.02 - HYPOXEMIA (6) SOB (shortness of breath) Current Visit: Yes Status: Resolved Code(s): R06.02 - SHORTNESS OF BREATH (7) Weakness Current Visit: Yes Status: Acute Code(s): R53.1 - WEAKNESS (8) GERD (gastroesophageal reflux disease) Current Visit: No Status: Chronic Code(s): K21.9 - GASTRO-ESOPHAGEAL REFLUX DISEASE WITHOUT ESOPHAGITIS (9) HTN (hypertension) Current Visit: No Status: Chronic Code(s): I10 - ESSENTIAL (PRIMARY) HYPERTENSION (10) Hypothyroid Current Visit: No Status: Chronic Code(s): E03.9 - HYPOTHYROIDISM, UNSPECIFIED - Discharge Discharge Date: 05/19/24 Disposition: Home, Self-Care Condition: Fair Prescriptions: New Prednisone 20 mg [Deltasone 20 mg] 20 mg PO BID 5 Days #10 tablet Furosemide [Lasix] 20 mg PO DAILY 14 Days #14 tablet levoFLOXacin [Levofloxacin] 750 mg PO DAILY #7 tablet Continue Cyanocobalamin (Vitamin B-12) [Vitamin B12] 2,500 mcg SL BID Flaxseed Oil/[place] 3,6,9 [Sv Flaxseed Oil 1,300 mg Sftgl] 1 each PO HS Cholecalciferol (Vitamin D3) [Vitamin D3] 1,000 unit PO HS Vitamin A 8,000 unit PO HS Ferrous Sulfate [Iron] 325 mg PO DAILY Multivitamin [Multivitamins] 1 each PO DAILY Ezetimibe 10 mg [Zetia 10 MG] 10 mg PO DAILY Carvedilol 12.5 mg [Coreg 12.5 mg] 25 mg PO BID Calcium Carbonate/Vitamin D3 [Calcium 500 mg Chewable Tablet] 1 tab PO BID Tumeric/Ging/[place]/Oreg/Capryl [Candicidal Capsule] 1 each PO HS PANTOPRAZOLE 40 mg Tablet [Protonix 40MG Tablet] 40 mg PO DAILY Levothyroxine Sodium 100 Mcg [Synthroid 100 Mcg] 100 mcg PO DAILY Ubidecarenone/Vit E Acet [Co Q-10 100 mg Softgel] 1 each PO HS Clopidogrel Bisulfate [PLAVIX Tablet] 75 mg PO DAILY Biotin 1,000 mcg PO HS Atorvastatin Calcium [Lipitor 20MG Tablet] 20 mg PO HS Acetaminophen 500 mg [Tylenol Extra Strength 500 mg] 1,000 mg PO Q6HPRN PRN PRN Reason: Pain Calcium Polycarbophil 625 mg [Fibercon 625 mg] 625 mg PO HS Vit C/E/Zn/Coppr/Lutein/Zeaxan [Preservision Areds 2 Softgel] 1 cap PO BID Tramadol HCl 50 mg [Ultram 50 mg] 50 mg PO Q6HPRN PRN 3 Days #12 tablet PRN Reason: Pain Methenamine Hippurate 1 gm PO BID Discontinued Losartan/Hydrochlorothiazide [Losartan-Hctz 100-12.5 mg Tab] 1 each PO DAILY Additional Instructions: FOLLOWS INSTRUCTIONS GIVEN TO YOU BY RESPIRATORY CONCERNING THE OVERNIGHT PULSE OX TEST FOLLOW THE FOLLOWING RECOMMENDATIONS FROM SPEECH THERAPY: -SIT UPRIGHT FOR ALL MEALS AND REMAIN UPRIGHT AFTER MEALS -TAKE SMALL DRINKS AND BITES -SWALLOW FOOD DRY -ALTERNATE SOLIDS AND LIQUIDS -CHIN TUCK -You will need lab work to recheck your kidney function on Saturday with your primary care doctor - please contact office if you do not hear from them for appointment -Keep blood pressure and weight log daily until follow up appt with cardiology/PCP Follow up with: CAROLINE ZAVALETA [Primary Care Provider] - Office will call patient CAROL MALIK MD [CONSULTING PHYSICIAN] - Office will call patient
[2024-05-19 17:28] VITALS: BP 120/63; RESP 16; TEMP 97.6; O2SAT 95
[2024-05-19] MEDS ORDERED: TROUGH DRUG LEVELS IJ ONE (20:00)
== END 2024-05-19 17:06 | disposition home health service (06) | DRG 194 ==
LOC: ED 19:05 → MED SURG 21:49
PROVIDERS: ADMIT Internal Medicine; ATTEND Internal Medicine
DX: J18.9 Pneumonia, unspecified organism (principal); L03.115 Cellulitis of right lower limb; L03.116 Cellulitis of left lower limb; N17.9 Acute kidney failure, unspecified; I11.0 Hypertensive heart disease with heart failure; I50.9 Heart failure, unspecified; R09.02 Hypoxemia; R06.02 Shortness of breath; R53.1 Weakness; K21.9 Gastro-esophageal reflux disease without esophagitis; E03.9 Hypothyroidism, unspecified; I49.9 Cardiac arrhythmia, unspecified; Z79.01 Long term (current) use of anticoagulants; Z79.899 Other long term (current) drug therapy; Z86.73 Personal history of transient ischemic attack (TIA), and cerebral infarction without residual deficits; Z85.3 Personal history of malignant neoplasm of breast
CPT/HCPCS: 0241U; 36415; 71045; 74230; 80053; 83605; 83735; 83880; 84443; 84484; 85025; 85027; 86308; 87040; 92611; 93005; 93306; 94760; 94762; 96374; 97161; 99291; Q3014; 99285; J1644; J1940; J1956; J2919; A9270-GY; J3370

== ENCOUNTER 2024-06-22 10:44 | Emergency (ER) | payer MEDICARE ==
--- NOTE | 2024-06-22 10:55 | ERPHSYRPT ---
- History of Present Illness Time Seen by Provider: 06/22/24 10:55 Source: patient, family Exam Limitations: no limitations Physician History: This is an 83-year-old white female patient who arrives by vehicle accompanied by family who noticed increasing weight gain in the last few days. Patient is taking Lasix 20 mg orally each day. She is also noticed swelling in her bilateral feet and ankles. She arrives with CALOS hose in place. Patient has no chest pain and no complaints of shortness of breath. Patient has a history of hypertension, chronic anemia, hyperlipidemia, hypothyroidism, arrhythmia, gastroesophageal reflux disease, degenerative disc disease, history of stroke in the past and is on Plavix. She also stated that she has been diagnosed with CHF in the past. Timing/Duration: day(s) (Last few days) Severity: mild Associated Symptoms: denies symptoms Allergies/Adverse Reactions: Penicillins Allergy (Verified 05/15/24 19:18) Home Medications: Calcium Carbonate/Vitamin D3 [Calcium 500 mg Chewable Tablet] 1 tab PO BID 06/02/16 [History] Carvedilol 12.5 mg [Coreg 12.5 mg] 25 mg PO BID 06/02/16 [History] Cholecalciferol (Vitamin D3) [Vitamin D3] 1,000 unit PO HS 06/02/16 [History] Cyanocobalamin (Vitamin B-12) [Vitamin B12] 2,500 mcg SL BID 06/02/16 [History] Ezetimibe 10 mg [Zetia 10 MG] 10 mg PO DAILY 06/02/16 [History] Ferrous Sulfate [Iron] 325 mg PO DAILY 06/02/16 [History] Flaxseed Oil/[place] 3,6,9 [Sv Flaxseed Oil 1,300 mg Sftgl] 1 each PO HS 06/02/16 [History] Multivitamin [Multivitamins] 1 each PO DAILY 06/02/16 [History] Vitamin A 8,000 unit PO HS 06/02/16 [History] Acetaminophen 500 mg [Tylenol Extra Strength 500 mg] 1,000 mg PO Q6HPRN PRN 05/09/23 [History] Atorvastatin Calcium [Lipitor 20MG Tablet] 20 mg PO HS 05/09/23 [History] Biotin 1,000 mcg PO HS 05/09/23 [History] Calcium Polycarbophil 625 mg [Fibercon 625 mg] 625 mg PO HS 05/09/23 [History] Clopidogrel Bisulfate [PLAVIX Tablet] 75 mg PO DAILY 05/09/23 [History] Levothyroxine Sodium 100 Mcg [Synthroid 100 Mcg] 100 mcg PO DAILY 05/09/23 [History] PANTOPRAZOLE 40 mg Tablet [Protonix 40MG Tablet] 40 mg PO DAILY 05/09/23 [History] Tumeric/Ging/[place]/Oreg/Capryl [Candicidal Capsule] 1 each PO HS 05/09/23 [History] Ubidecarenone/Vit E Acet [Co Q-10 100 mg Softgel] 1 each PO HS 05/09/23 [History] Vit C/E/Zn/Coppr/Lutein/Zeaxan [Preservision Areds 2 Softgel] 1 cap PO BID 05/12/23 [History] Methenamine Hippurate 1 gm PO BID 05/15/24 [History] Hx Tetanus, Diphtheria Vaccination/Date Given: Yes Hx Influenza Vaccination/Date Given: Yes Hx Pneumococcal Vaccination/Date Given: Yes Travel Risk - International Travel Have you traveled outside of the country in past 3 weeks: No - Emerging Infectious Disease Are you exhibiting symptoms associated with any current EIDs: Yes Symptoms: Cough: New Onset, Headaches/Body Aches/ - Review of Systems Constitutional: No Symptoms Eyes: No Symptoms Ears, Nose, & Throat: No Symptoms Respiratory: No Symptoms Cardiac: No Symptoms Abdominal/Gastrointestinal: No Symptoms Genitourinary Symptoms: No Symptoms Musculoskeletal: No Symptoms Skin: No Symptoms Neurological: No Symptoms Psychological: No Symptoms Endocrine: No Symptoms Hematologic/Lymphatic: No Symptoms Immunological/Allergic: No Symptoms All Other Systems: Reviewed and Negative - Past Medical History Pertinent Past Medical History: Yes Neurological History: Stroke ENT History: Cataracts Cardiac History: Arrhythmia, High Cholesterol, Hypertension Respiratory History: No Pertinent History Endocrine Medical History: Hypothyroidism Musculoskeletal History: Degenerative Disk Disease, Osteoarthritis GI Medical History: GERD, Gallbladder Disease, Hernia History: No Pertinent History Psycho-Social History: No Pertinent History Female Reproductive Disorders: Breast Cancer Other Medical History: REPORTS CVA AFFECTED SKIN PRIMARILY WITH NUMBNESS BUT 90% RESOLVED. PMHX: GERD, BREAST CA (LUMPECTOMY LEFT AND RADIATION) 1999, LEFT TKR 2012, GASTRIC BYPASS. Bile Duct infection. Hiatal Hernia - Past Surgical History Neuro Surgical History: No Pertinent History Cardiac: No Pertinent History Respiratory: No Pertinent History Gastrointestinal: Cholecystectomy Genitourinary: No Pertinent History Musculoskeletal: Orthopedic Surgery Female Surgical History: Hysterectomy, Lumpectomy Other Surgical History: gastric bypass, carpal tunnel, left knee replacement, bile duct Significant Family History: no pertinent family hx - Social History Drug Use: none - Social Determinants of Health Will the patient participate in the screening: Yes Do you worry about a steady place to live?: No In the past 12 months,have you had to go without utilities?: No Transportation Issues: No Has anyone in your support network made you feel unsafe?: No Have you or anyone in your house had to go w/o enough food: No - Nursing Vital Signs Nursing Vital Signs: Initial Vital Signs Temperature 98.0 F 06/22/24 12:04 Pulse Rate 147 H 06/22/24 12:04 Respiratory Rate 18 06/22/24 12:04 Blood Pressure 135/86 06/22/24 12:04 O2 Sat by Pulse Oximetry 94 L 06/22/24 12:04 Pain Scale Pain Intensity 0 - Physical Exam General Appearance: no apparent distress, alert, anxiety, obese Eye Exam: PERRL/EOMI Ears, Nose, Throat Exam: moist mucous membranes Neck Exam: normal inspection, non-tender, supple, full range of motion Respiratory Exam: normal breath sounds, lungs clear, airway intact, No chest tenderness, No respiratory distress Cardiovascular Exam: regular rate/rhythm, normal heart sounds, normal peripheral pulses Gastrointestinal/Abdomen Exam: soft, normal bowel sounds, No tenderness Pelvic Exam: not done Rectal Exam: not done Back Exam: normal inspection, normal range of motion, No CVA tenderness, No vertebral tenderness Extremity Exam: normal inspection, normal range of motion, pelvis stable, pedal edema (1+ bilateral feet and ankle edema) Neurologic Exam: alert, oriented x 3, cooperative, stores despatch hand II-XII nml as tested, normal mood/affect, nml cerebellar function, nml station & gait Skin Exam: normal color, warm, dry Lymphatic Exam: No adenopathy SpO2 Interpretation: borderline oxygenation O2 Delivery: Room Air - Course Nursing assessment & vital signs reviewed: Yes EKG Interpreted by Me: RATE (82), Sinus Rhythm, Left Bundle Branch Block (Incomplete), Other (QTc is 455. No acute ischemic changes.) Ordered Tests: Active Orders 24 hr Category Date Time Status EKG-ER Only STAT Care 06/22/24 12:20 Active IV Insertion STAT Care 06/22/24 12:20 Active CBC W DIFF Stat Lab 06/22/24 12:35 Completed CMP Stat Lab 06/22/24 12:35 Completed MAGNESIUM Stat Lab 06/22/24 12:35 Completed NT PRO BNPII Stat Lab 06/22/24 12:35 Completed TROPONIN Q4H Lab 06/22/24 12:35 Completed TROPONIN Q4H Lab 06/22/24 16:30 Ordered TROPONIN Q4H Lab 06/22/24 20:30 Ordered Medication Summary Generic Name Dose Route Start Last Admin Trade Name Freq PRN Reason Stop Dose Admin Furosemide 40 mg 06/22/24 13:25 Furosemide 40 Mg/4 Ml Vial IV 06/22/24 13:26 STAT ONE Lab/Rad Data: Laboratory Result Diagrams 06/22/24 12:35 06/22/24 12:35 Laboratory Results 06/22/24 06/22/24 06/22/24 Range/Units 12:35 12:35 12:35 WBC 8.1 (3.98-10.04) x10^3/uL RBC 3.76 L (3.93-5.22) x10^6/uL Hgb 11.5 (11.2-15.7) g/dL Hct 37.2 (34.1-44.9) % MCV 98.9 H (79.4-94.8) fL MCH 30.6 (25.6-32.2) pg MCHC 30.9 L (32.2-35.5) g/dL RDW 15.3 H (11.7-14.4) % Plt Count 356 (182-369) x10^3/uL MPV 9.2 L (9.4-12.3) fL Gran % 60.5 (34.0-71.1) % Immature Gran % (Auto) 1.1 H (0.001-0.429) % Nucleat RBC Rel Count 0.0 (0.00-0.2) % Eos # (Auto) 0.15 (0.04-0.36) x10^3/uL Immature Gran # (Auto) 0.09 H (0.001-0.031) x10^3u/L Absolute Lymphs (auto) 2.32 (1.18-3.74) x10^3/uL Absolute Monos (auto) 0.59 (0.24-0.86) x10^3/uL Absolute Nucleated RBC 0.00 (0.00-0.012) x10^3u/L Lymphocytes % 28.7 (19.3-51.7) % Monocytes % 7.3 (4.7-12.5) % Eosinophils % 1.9 (0.7-5.8) % Basophils % 0.5 (0.1-1.2) % Absolute Granulocytes 4.88 (1.56-6.13) x10^3/uL Basophils # 0.04 (0.01-0.08) x10^3/uL Sodium 138 (135-145) mmol/L Potassium 4.3 (3.5-5.1) mmol/L Chloride 99 (98-107) mmol/L Carbon Dioxide 33 H (22-30) mmol/L Anion Gap 10.4 (5-15) MEQ/L BUN 33 H (7-17) mg/dL Creatinine 1.11 H (0.52-1.04) mg/dL Estimated GFR 49.0 ML/MIN Glucose 114 H (74-106) mg/dL Calcium 8.6 (8.4-10.2) mg/dL Magnesium 2.1 (1.6-2.3) mg/dL Total Bilirubin 1.40 H (0.2-1.3) mg/dL AST 28 (14-36) U/L ALT 21 (0-35) U/L Alkaline Phosphatase 84 (38-126) U/L Troponin I < 0.012 (0.000-0.033) ng/mL NT-Pro-B Natriuret Pep 2700 (<300) pg/mL Serum Total Protein 6.1 L (6.3-8.2) g/dL Albumin 3.8 (3.5-5.0) g/dL - Progress Progress: improved, re-examined Progress Note: 06/22/24 13:29 My medical decision making in the assignment of moderate complexity to this patient's medical issue today is based on review of the patient's past medical history, review the patient's medication list, review of patient drug allergy list, history present illness and physical findings on examination. The workup in this patient includes placement of intravenous line, CBC, CMP, magnesium leve l, BNP, twelve-lead EKG and troponin level Differential diagnosis includes but is not limited to hypoalbuminemia, electrolyte abnormalities, renal failure/insufficiency, CHF, arrhythmia I interpreted the patient's laboratory data results. Based on the laboratory data results, the patient does have at least mild but not moderate fluid overload. It may be that the patient 20 mg of Lasix daily is insufficient to remove the fluid that is present. She may require a different medication. We will provide her with 40 mg of intravenous Lasix and patient will call her primary prescribing provider today to obtain further instructions with her medications. Counseled pt/family regarding: lab results, diagnosis, need for follow-up Medical Desision Making - Independent Historian Additional History obtained from: Family - Diagnostic Testing Diagnostic test were ordered, analyzed, and reviewed by me: Yes - Risk of complications Low Risk: Low risk of morbidity from additional dx testing or treatment - Departure Departure Disposition: Home Clinical Impression: Weight gain, Mild congestive heart failure Condition: Stable Critical Care Time: No Referrals: WES ZAVALETA [Primary Care Provider] - Follow up/PCP as directed Instructions: Heart Failure Additional Instructions: Call your prescribing provider today, 06/22/2024, to make arrangements for follow-up appointment, to be seen in the next 2 to 3 days and to obtain instructions on changing your diuretic if indicated. If you are not able to speak with your prescribing provider today, increase your Lasix to 20 mg orally twice a day until you are able to obtain instructions from your primary care provider
[2024-06-22 12:11] VITALS: TEMP 98
[2024-06-22 12:40] LABS: Absolute Neutrophil Ct (ANC) 4.88 x10^3/uL (1.56-6.13); BASOPHIL % 0.5 % (0.1-1.2); Basophil (Absolute #) 0.04 x10^3/uL (0.01-0.08); Eosinophil % 1.9 % (0.7-5.8); Eosinophil (Absolute #) 0.15 x10^3/uL (0.04-0.36); Hematocrit 37.2 % (34.1-44.9); Hemoglobin 11.5 g/dL (11.2-15.7); IMMATURE GRAN # 0.09 x10^3u/L (0.001-0.031); IMMATURE GRAN % 1.1 % (0.001-0.429); Lymphocyte (Absolute #) 2.32 x10^3/uL (1.18-3.74); Lymphocytes % 28.7 % (19.3-51.7); Mean Cell Volume 98.9 fL (79.4-94.8); Mean Corpuscular Hemoglobin 30.6 pg (25.6-32.2); Mean Corpuscular Hgb Concent. 30.9 g/dL (32.2-35.5); Mean Platelet Volume 9.2 fL (9.4-12.3); Monocyte (Absolute #) 0.59 x10^3/uL (0.24-0.86); Monocytes % 7.3 % (4.7-12.5); Neutrophil % 60.5 % (34.0-71.1); Platelet Count 356 x10^3/uL (182-369); Red Blood Count 3.76 x10^6/uL (3.93-5.22); Red Cell Distribution Width 15.3 % (11.7-14.4); White Blood Count 8.1 x10^3/uL (3.98-10.04)
[2024-06-22 13:05] LABS: ALBUMIN 3.8 g/dL (3.5-5.0); ANION GAP 10.4 MEQ/L (5-15); BILIRUBIN,TOTAL 1.4 mg/dL (0.2-1.3); Calcium 8.6 mg/dL (8.4-10.2); Creatinine 1 1.11 mg/dL (0.52-1.04); MAGNESIUM 2.1 mg/dL (1.6-2.3); Potassium 4.3 mmol/L (3.5-5.1); Total Protein 6.1 g/dL (6.3-8.2)
[2024-06-22] MEDS ORDERED: Lasix 40 MG/4 ML ONE (13:40)
[2024-06-22] MEDS: Lasix 40 MG/4 ML IV ONE (13:43)
[2024-06-22 13:54] VITALS: PULSE 103; RESP 19; O2SAT 97
[2024-06-22 14:07] VITALS: BP 110/61
== END 2024-06-22 14:14 | disposition home or self-care (01) ==
LOC: ED 10:44
DX: R63.5 Abnormal weight gain (principal); I11.0 Hypertensive heart disease with heart failure; I50.9 Heart failure, unspecified; E78.5 Hyperlipidemia, unspecified; Z79.02 Long term (current) use of antithrombotics/antiplatelets; Z79.899 Other long term (current) drug therapy
CPT/HCPCS: 36415; 80053; 83735; 83880; 84484; 85025; 93005; 96374; 99284; J1940

== ENCOUNTER 2024-07-25 15:51 | Observation (INO) | payer MEDICARE ==
--- NOTE | 2024-07-25 16:09 | ERPHSYRPT ---
- History of Present Illness Time Seen by Provider: 07/25/24 16:09 Source: patient, family Exam Limitations: no limitations Physician History: This is an obese 83-year-old white female patient who arrives by private vehicle with complaint of coughing and mild shortness of breath. Patient and patient family member have stated that she has been sick since January. She has had laryngitis for 4 weeks. She currently denies chest pain. She is concerned that she might have a pneumonia. 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 She also has had a gastric bypass procedure performed in the past. Timing/Duration: intermittent, worse Severity of Dyspnea-Max: mild Severity of Dyspnea-Current: mild Possible Cause: occasional episodes Modifying Factors: Improves With: activity (Worsens), coughing Associated Symptoms: cough, wheezing, ankle swelling Allergies/Adverse Reactions: Penicillins Allergy (Verified 07/25/24 16:13) Home Medications: Calcium Carbonate/Vitamin D3 [Calcium 500 mg Chewable Tablet] 1 tab PO BID 06/02/16 [History] Carvedilol 12.5 mg [Coreg 12.5 mg] 25 mg PO BID 06/02/16 [History] Cholecalciferol (Vitamin D3) [Vitamin D3] 1,000 unit PO HS 06/02/16 [History] Cyanocobalamin (Vitamin B-12) [Vitamin B12] 2,500 mcg SL BID 06/02/16 [History] Ezetimibe 10 mg [Zetia 10 MG] 10 mg PO DAILY 06/02/16 [History] Ferrous Sulfate [Iron] 325 mg PO DAILY 06/02/16 [History] Flaxseed Oil/[place] 3,6,9 [Sv Flaxseed Oil 1,300 mg Sftgl] 1 each PO HS 06/02/16 [History] Multivitamin [Multivitamins] 1 each PO DAILY 06/02/16 [History] Vitamin A 8,000 unit PO HS 06/02/16 [History] Atorvastatin Calcium [Lipitor 20MG Tablet] 20 mg PO HS 05/09/23 [History] Biotin 1,000 mcg PO HS 05/09/23 [History] Clopidogrel Bisulfate [PLAVIX Tablet] 75 mg PO DAILY 05/09/23 [History] Levothyroxine Sodium 100 Mcg [Synthroid 100 Mcg] 100 mcg PO DAILY 05/09/23 [History] PANTOPRAZOLE 40 mg Tablet [Protonix 40MG Tablet] 40 mg PO DAILY 05/09/23 [History] Tumeric/Ging/[place]/Oreg/Capryl [Candicidal Capsule] 1 each PO HS 05/09/23 [History] Ubidecarenone/Vit E Acet [Co Q-10 100 mg Softgel] 1 each PO HS 05/09/23 [History] Methenamine Hippurate 1 gm PO BID 05/15/24 [History] Calcium Polycarbophil [Fiber Lax] 625 mg PO DAILY 07/25/24 [History] Cranberry 500 mg PO DAILY 07/25/24 [History] Famotidine 40 mg PO DAILY 07/25/24 [History] Furosemide [Lasix] 20 mg PO BID 07/25/24 [History] Melatonin 6 mg PO HS 07/25/24 [History] Hx Tetanus, Diphtheria Vaccination/Date Given: Yes Hx Influenza Vaccination/Date Given: Yes Hx Pneumococcal Vaccination/Date Given: Yes Travel Risk - International Travel Have you traveled outside of the country in past 3 weeks: No - Emerging Infectious Disease Are you exhibiting symptoms associated with any current EIDs: Yes Symptoms: Cough: New Onset, Headaches/Body Aches/ - Review of Systems Constitutional: No Symptoms Eyes: No Symptoms Ears, Nose, & Throat: No Symptoms Respiratory: Cough, Dyspnea on Exertion (DUNBAR), Wheezing Cardiac: No Symptoms Abdominal/Gastrointestinal: No Symptoms Genitourinary Symptoms: No Symptoms Musculoskeletal: No Symptoms Skin: No Symptoms Neurological: No Symptoms Psychological: No Symptoms Endocrine: No Symptoms Hematologic/Lymphatic: No Symptoms Immunological/Allergic: No Symptoms All Other Systems: Reviewed and Negative - Past Medical History Pertinent Past Medical History: Yes Neurological History: Stroke ENT History: Cataracts Cardiac History: Arrhythmia, High Cholesterol, Hypertension Respiratory History: No Pertinent History Endocrine Medical History: Hypothyroidism Musculoskeletal History: Degenerative Disk Disease, Osteoarthritis GI Medical History: GERD, Gallbladder Disease, Hernia History: No Pertinent History Psycho-Social History: No Pertinent History Female Reproductive Disorders: Breast Cancer Other Medical History: REPORTS CVA AFFECTED SKIN PRIMARILY WITH NUMBNESS BUT 90% RESOLVED. PMHX: GERD, BREAST CA (LUMPECTOMY LEFT AND RADIATION) 1999, LEFT TKR 2011, GASTRIC BYPASS. Bile Duct infection. Hiatal Hernia - Past Surgical History Neuro Surgical History: No Pertinent History Cardiac: No Pertinent History Respiratory: No Pertinent History Gastrointestinal: Cholecystectomy Genitourinary: No Pertinent History Musculoskeletal: Orthopedic Surgery Female Surgical History: Hysterectomy, Lumpectomy Other Surgical History: gastric bypass, carpal tunnel, left knee replacement, bile duct Significant Family History: no pertinent family hx - Social History Drug Use: none - Social Determinants of Health Will the patient participate in the screening: Yes Do you worry about a steady place to live?: No In the past 12 months,have you had to go without utilities?: No Transportation Issues: No Has anyone in your support network made you feel unsafe?: No Have you or anyone in your house had to go w/o enough food: No - Nursing Vital Signs Nursing Vital Signs: Initial Vital Signs Temperature 99.6 F 07/25/24 16:05 Pulse Rate 98 H 07/25/24 16:05 Blood Pressure 149/77 07/25/24 16:05 O2 Sat by Pulse Oximetry 91 L 07/25/24 16:05 Pain Scale Pain Intensity 0 - Physical Exam General Appearance: no apparent distress, alert, anxiety, obese Eye Exam: PERRL/EOMI, eyes nml inspection Ears, Nose, Throat Exam: hearing grossly normal, normal ENT inspection, normal pharynx Neck Exam: normal inspection, non-tender, supple, full range of motion Respiratory Exam: airway intact, wheezing (I lateral expiratory wheezing), No chest tenderness, No respiratory distress Cardiovascular/Chest Exam: normal heart sounds Abdominal/Gastrointestinal Exam: soft, normal bowel sounds, No tenderness Rectal Exam: not done Extremity Exam: non-tender, normal range of motion, pedal edema (Bilateral feet and ankles) Neurologic Exam: alert, oriented x 3, cooperative, research pharmacist II-XII nml as tested, sensation nml Skin Exam: normal color, warm, dry Lymphatic Exam: adenopathy SpO2 Interpretation: borderline oxygenation SpO2: 91 O2 Delivery: Nasal Cannula (2 L oxygen via nasal cannula) - Course Nursing assessment & vital signs reviewed: Yes Ordered Tests: Active Orders 24 hr Category Date Time Status Shipping Inspector STAT Care 07/25/24 16:23 Active EKG-ER Only STAT Care 07/25/24 16:22 Active IV Insertion STAT Care 07/25/24 16:22 Active Pulse Oximetry (ED) STAT Care 07/25/24 16:22 Active CHEST 1 VIEW (PORTABLE) Stat Exams 07/25/24 16:23 Completed BLOOD CULTURE Stat Lab 07/25/24 16:23 Received CBC W DIFF Stat Lab 07/25/24 16:50 Completed CMP Stat Lab 07/25/24 16:50 Completed Lactic Acid Stat Lab 07/25/24 16:22 Completed MAGNESIUM Stat Lab 07/25/24 16:50 Completed NT PRO BNPII Stat Lab 07/25/24 16:50 Completed TROPONIN Q4H Lab 07/25/24 16:50 Completed TROPONIN Q4H Lab 07/25/24 20:30 Ordered TROPONIN Q4H Lab 07/26/24 00:30 Ordered Respiratory Therapy Assessment DAILY RT 07/25/24 17:34 Completed Medication Summary Generic Name Dose Route Start Last Admin Trade Name Freq PRN Reason Stop Dose Admin Levofloxacin/Dextrose 500 mg in 100 mls @ 100 mls/hr 07/25/24 17:47 07/25/24 17:55 Levofloxacin 500mg/100ml D5w IV 07/25/24 18:46 100 ml/hr STAT STA 100 mls/hr Administration Discontinued Medications Generic Name Dose Route Start Last Admin Trade Name Freq PRN Reason Stop Dose Admin Albuterol/Ipratropium Confirm 07/25/24 17:31 Ipratropium/Albuterol Sulfate 3 Ml Ampul.Neb Administered 07/25/24 17:32 Dose 3 ml IH .STK-MED ONE Albuterol/Ipratropium 3 ml 07/25/24 17:34 07/25/24 17:35 Ipratropium/Albuterol Sulfate 3 Ml Ampul.Neb IH 07/25/24 17:35 3 ml STAT ONE Administration Furosemide 40 mg 07/25/24 17:47 07/25/24 17:51 Furosemide 40 Mg/4 Ml Vial IV 07/25/24 17:48 40 mg STAT ONE Administration Furosemide Confirm 07/25/24 17:49 Furosemide 40 Mg/4 Ml Vial Administered 07/25/24 17:50 Dose 40 mg .ROUTE .STK-MED ONE Levofloxacin/Dextrose Confirm 07/25/24 17:50 Levofloxacin 500mg/100ml D5w Administered 07/25/24 17:51 Dose 500 mg in 100 mls @ ud IV .KMED ONE Lab/Rad Data: Laboratory Result Diagrams 07/25/24 16:50 07/25/24 16:50 Laboratory Results 07/25/24 07/25/24 07/25/24 Range/Units 16:50 16:50 16:50 WBC (3.98-10.04) x10^3/uL RBC (3.93-5.22) x10^6/uL Hgb (11.2-15.7) g/dL Hct (34.1-44.9) % MCV (79.4-94.8) fL MCH (25.6-32.2) pg MCHC (32.2-35.5) g/dL RDW (11.7-14.4) % Plt Count (182-369) x10^3/uL MPV (9.4-12.3) fL Gran % (34.0-71.1) % Immature Gran % (Auto) (0.001-0.429) % Nucleat RBC Rel Count (0.00-0.2) % Eos # (Auto) (0.04-0.36) x10^3/uL Immature Gran # (Auto) (0.001-0.031) x10^3u/L Absolute Lymphs (auto) (1.18-3.74) x10^3/uL Absolute Monos (auto) (0.24-0.86) x10^3/uL Absolute Nucleated RBC (0.00-0.012) x10^3u/L Lymphocytes % (19.3-51.7) % Monocytes % (4.7-12.5) % Eosinophils % (0.7-5.8) % Basophils % (0.1-1.2) % Absolute Granulocytes (1.56-6.13) x10^3/uL Basophils # (0.01-0.08) x10^3/uL Sodium 137 (135-145) mmol/L Potassium 4.2 (3.5-5.1) mmol/L Chloride 95 L (98-107) mmol/L Carbon Dioxide 36 H (22-30) mmol/L Anion Gap 10.8 (5-15) MEQ/L BUN 30 H (7-17) mg/dL Creatinine 1.15 H (0.52-1.04) mg/dL Estimated GFR 47.0 ML/MIN Glucose 129 H (74-106) mg/dL Lactic Acid (0.4-2.0) Calcium 8.7 (8.4-10.2) mg/dL Magnesium 2.0 (1.6-2.3) mg/dL Total Bilirubin 1.60 H (0.2-1.3) mg/dL AST 30 (14-36) U/L ALT 18 (0-35) U/L Alkaline Phosphatase 62 (38-126) U/L Troponin I 0.023 (0.000-0.033) ng/mL NT-Pro-B Natriuret Pep 6280 (<300) pg/mL Serum Total Protein 6.2 L (6.3-8.2) g/dL Albumin 4.1 (3.5-5.0) g/dL Influenza Type A Ag NEGATIVE (NEGATIVE) Influenza Type B Ag NEGATIVE (NEGATIVE) RSV (PCR) NEGATIVE (NEGATIVE) SARS-CoV-2 (PCR) NEGATIVE (NEGATIVE) 07/25/24 07/25/24 Range/Units 16:50 16:22 WBC 6.8 (3.98-10.04) x10^3/uL RBC 3.78 L (3.93-5.22) x10^6/uL Hgb 11.6 (11.2-15.7) g/dL Hct 36.7 (34.1-44.9) % MCV 97.1 H (79.4-94.8) fL MCH 30.7 (25.6-32.2) pg MCHC 31.6 L (32.2-35.5) g/dL RDW 14.0 (11.7-14.4) % Plt Count 231 (182-369) x10^3/uL MPV 9.7 (9.4-12.3) fL Gran % 73.6 H (34.0-71.1) % Immature Gran % (Auto) 0.1 (0.001-0.429) % Nucleat RBC Rel Count 0.0 (0.00-0.2) % Eos # (Auto) 0.01 L (0.04-0.36) x10^3/uL Immature Gran # (Auto) 0.01 (0.001-0.031) x10^3u/L Absolute Lymphs (auto) 1.29 (1.18-3.74) x10^3/uL Absolute Monos (auto) 0.47 (0.24-0.86) x10^3/uL Absolute Nucleated RBC 0.00 (0.00-0.012) x10^3u/L Lymphocytes % 19.0 L (19.3-51.7) % Monocytes % 6.9 (4.7-12.5) % Eosinophils % 0.1 L (0.7-5.8) % Basophils % 0.3 (0.1-1.2) % Absolute Granulocytes 4.99 (1.56-6.13) x10^3/uL Basophils # 0.02 (0.01-0.08) x10^3/uL Sodium (135-145) mmol/L Potassium (3.5-5.1) mmol/L Chloride (98-107) mmol/L Carbon Dioxide (22-30) mmol/L Anion Gap (5-15) MEQ/L BUN (7-17) mg/dL Creatinine (0.52-1.04) mg/dL Estimated GFR ML/MIN Glucose (74-106) mg/dL Lactic Acid 0.8 (0.4-2.0) Calcium (8.4-10.2) mg/dL Magnesium (1.6-2.3) mg/dL Total Bilirubin (0.2-1.3) mg/dL AST (14-36) U/L ALT (0-35) U/L Alkaline Phosphatase (38-126) U/L Troponin I (0.000-0.033) ng/mL NT-Pro-B Natriuret Pep (<300) pg/mL Serum Total Protein (6.3-8.2) g/dL Albumin (3.5-5.0) g/dL Influenza Type A Ag (NEGATIVE) Influenza Type B Ag (NEGATIVE) RSV (PCR) (NEGATIVE) SARS-CoV-2 (PCR) (NEGATIVE) - Progress Progress: improved, re-examined Air Movement: fair Progress Note: 07/25/24 17:56 My medical decision making and the assignment of moderate to high complexity of this patient's medical issue today is based on review of the patient's past medical history, reviewed the patient's medication list, reviewed patient drug allergy list, history present illness and physical findings on examination. The workup in this patient includes placement of intravenous line, chest x-ray, twelve-lead EKG, BNP, troponin level, CBC, CMP, magnesium level, viral swabs. Differential diagnosis includes but is not limited to CHF exacerbation, COPD exacerbation, pneumonia, viral illness, arrhythmia, electrolyte abnormalities I interpreted the patient's laboratory data results. Based on the laboratory data results, the patient does have a significant elevated BNP of 6280. 07/25/24 17:57 I interpreted the preliminary report of the chest x-ray which on my examination appears to have bilateral perihilar infiltrate versus fluid. There are small bilateral pleural effusions present as well. 07/25/24 18:11 The final report of the chest x-ray was interpreted by the radiologist. I re viewed the impression. The impression states the patient has bibasilar infiltrates/pleural effusion present. 07/25/24 18:[address] Ray, our telehospitalist on at this time. I reviewed the patient presenting complaint, physical findings on examination and the workup results with him. We will place this patient in observation and provide her with nebulizer treatments, RT evaluation and management, diuresing and intravenous antibiotics. Blood Culture(s) Obtained: Yes Antibiotics given: Yes Counseled pt/family regarding: lab results, diagnosis, rad results Medical Desision Making - Independent Historian Additional History obtained from: Family - Diagnostic Testing Diagnostic test were ordered, analyzed, and reviewed by me: Yes Radiological Interpretation: Interpreted by me, Reviewed by me, Teleradiologist Report - Risk of complications The pt has a high risk of morbidity or mortality based on: Decision regarding hospitilization or escalation of hosp level of care - Departure Departure Disposition: Observation Clinical Impression: CHF exacerbation, Bilateral pulmonary infiltrates on chest x-ray Condition: Fair Critical Care Time: No Referrals: WES ZAVALETA [Primary Care Provider] - Follow up/PCP as directed Instructions: Heart Failure
[2024-07-25 17:02] LABS: Absolute Neutrophil Ct (ANC) 4.99 x10^3/uL (1.56-6.13); BASOPHIL % 0.3 % (0.1-1.2); Basophil (Absolute #) 0.02 x10^3/uL (0.01-0.08); Eosinophil % 0.1 % (0.7-5.8); Eosinophil (Absolute #) 0.01 x10^3/uL (0.04-0.36); Hematocrit 36.7 % (34.1-44.9); Hemoglobin 11.6 g/dL (11.2-15.7); IMMATURE GRAN # 0.01 x10^3u/L (0.001-0.031); IMMATURE GRAN % 0.1 % (0.001-0.429); Lymphocyte (Absolute #) 1.29 x10^3/uL (1.18-3.74); Mean Cell Volume 97.1 fL (79.4-94.8); Mean Corpuscular Hemoglobin 30.7 pg (25.6-32.2); Mean Corpuscular Hgb Concent. 31.6 g/dL (32.2-35.5); Mean Platelet Volume 9.7 fL (9.4-12.3); Monocyte (Absolute #) 0.47 x10^3/uL (0.24-0.86); Monocytes % 6.9 % (4.7-12.5); Neutrophil % 73.6 % (34.0-71.1); Platelet Count 231 x10^3/uL (182-369); Red Blood Count 3.78 x10^6/uL (3.93-5.22); White Blood Count 6.8 x10^3/uL (3.98-10.04)
[2024-07-25 17:26] LABS: ALBUMIN 4.1 g/dL (3.5-5.0); ANION GAP 10.8 MEQ/L (5-15); BILIRUBIN,TOTAL 1.6 mg/dL (0.2-1.3); Calcium 8.7 mg/dL (8.4-10.2); Creatinine 1 1.15 mg/dL (0.52-1.04); Potassium 4.2 mmol/L (3.5-5.1); Total Protein 6.2 g/dL (6.3-8.2)
[2024-07-25] MEDS ORDERED: DUONEB 0.5-3 MG/3 ml Neb IH ONE (17:31)
[2024-07-25] MEDS: DUONEB 0.5-3 MG/3 ml Neb IH ONE (17:35)
[2024-07-25 17:46] LABS: INFLUENZA A NEGATIVE (NEGATIVE); INFLUENZA B NEGATIVE (NEGATIVE); RESPIRATORY SYNCTIAL VIRUS NEGATIVE (NEGATIVE); SARS-CoV-2 Xpert Express NEGATIVE (NEGATIVE)
[2024-07-25] MEDS ORDERED: Lasix 40 MG/4 ML ONE (17:49)
[2024-07-25] MEDS ORDERED: Levofloxacin 500MG/100ML D5W 500 MG/100 ML BAG IV ONE (17:50)
[2024-07-25] MEDS: Lasix 40 MG/4 ML IV ONE (17:51)
[2024-07-25] MEDS: Levofloxacin 500MG/100ML D5W 500 MG/100 ML BAG IV STA (17:55)
--- NOTE | 2024-07-25 18:06 | XRAY ---
Indication: Cough. Comparison: May 18, 2024 Portable chest demonstrates worsening moderate bibasilar infiltrates/atelectasis/effusions. Heart not enlarged for AP portable technique. Bony thorax intact with osteopenia and degenerative changes.
[2024-07-25] MEDS ORDERED: Zofran 4 MG/2 ML VIAL IV PRN ×2 (19:41→21:27)
[2024-07-25] MEDS ORDERED: TYLENOL 325 MG PO PRN (19:41)
[2024-07-25] MEDS: Lasix 40 MG/4 ML IV SCH (21:25)
--- NOTE | 2024-07-25 21:26 | PCM.HP ---
History of Present Illness - Chief Complaint Chief Complaint: COPD, pneumonia Date: 07/25/24 History of Present Illness: 83 female with medical history of hypothyroidism, HLD, COPD on 2 L supplemental oxygen at night, CHF, HTN, CVA, GERD, chronic anemia, vocal cord issue yet to follow-up with ENT presented to ER with complaint of shortness of breath. On my encounter patient is alert oriented x 4 reports she is having difficulty talking for past 4-week due to vocal cord issues she supposed to follow-up with ENT. For past couple days she is having shortness of breath which is worsened on exertion. She also reports having persistent hypoxia at home. On arrival to ER hypoxic requiring 2 placed on 2 L supplemental oxygen, white blood cell 6.8, BUN 30/creatinine 1.15, proBNP elevated to 6280, chest x-ray with worsening moderate bilateral bibasilar infiltrate/effusion. S/p IV dose of levofloxacin, Lasix given in ER. Denies chest pain, abdominal pain, nausea, vomiting, fall, syncope, headache, vision change, localized weakness/numbness. - Review of Systems Constitutional: No Symptoms Eyes: No Symptoms Respiratory: Cough, Short Of Breath Cardiac: No Symptoms Abdominal/Gastrointestinal: No Symptoms Genitourinary Symptoms: No Symptoms Musculoskeletal: No Symptoms Skin: No Symptoms Neurological: No Symptoms Medications & Allergies Home Medications: Home Medication List Calcium Carbonate/Vitamin D3 [Calcium 500 mg Chewable Tablet] 1 tab PO BID 06/02/16 [History Confirmed 07/25/24] Carvedilol 12.5 mg [Coreg 12.5 mg] 25 mg PO BID 06/02/16 [History Confirmed 07/25/24] Cholecalciferol (Vitamin D3) [Vitamin D3] 1,000 unit PO HS 06/02/16 [History Confirmed 07/25/24] Cyanocobalamin (Vitamin B-12) [Vitamin B12] 2,500 mcg SL BID 06/02/16 [History Confirmed 07/25/24] Ezetimibe 10 mg [Zetia 10 MG] 10 mg PO DAILY 06/02/16 [History Confirmed 07/25/24] Ferrous Sulfate [Iron] 325 mg PO DAILY 06/02/16 [History Confirmed 07/25/24] Flaxseed Oil/Owendale 3,6,9 [Sv Flaxseed Oil 1,300 mg Sftgl] 1 each PO HS 06/02/16 [History Confirmed 07/25/24] Multivitamin [Multivitamins] 1 each PO DAILY 06/02/16 [History Confirmed 07/25/24] Vitamin A 8,000 unit PO HS 06/02/16 [History Confirmed 07/25/24] Atorvastatin Calcium [Lipitor 20MG Tablet] 20 mg PO HS 05/09/23 [History Confirmed 07/25/24] Biotin 1,000 mcg PO HS 05/09/23 [History Confirmed 07/25/24] Clopidogrel Bisulfate [PLAVIX Tablet] 75 mg PO DAILY 05/09/23 [History Confirmed 07/25/24] Levothyroxine Sodium 100 Mcg [Synthroid 100 Mcg] 100 mcg PO DAILY 05/09/23 [History Confirmed 07/25/24] PANTOPRAZOLE 40 mg Tablet [Protonix 40MG Tablet] 40 mg PO DAILY 05/09/23 [History Confirmed 07/25/24] Tumeric/Ging/Leroy/Oreg/Capryl [Candicidal Capsule] 1 each PO HS 05/09/23 [History Confirmed 07/25/24] Ubidecarenone/Vit E Acet [Co Q-10 100 mg Softgel] 1 each PO HS 05/09/23 [History Confirmed 07/25/24] Methenamine Hippurate 1 gm PO BID 05/15/24 [History Confirmed 07/25/24] Calcium Polycarbophil [Fiber Lax] 625 mg PO DAILY 07/25/24 [History Confirmed 07/25/24] Cranberry 500 mg PO DAILY 07/25/24 [History Confirmed 07/25/24] Famotidine 40 mg PO DAILY 07/25/24 [History Confirmed 07/25/24] Furosemide [Lasix] 20 mg PO BID 07/25/24 [History Confirmed 07/25/24] Melatonin 6 mg PO HS 07/25/24 [History Confirmed 07/25/24] Allergies/Adverse Reactions: Allergies Allergy/AdvReac Type Severity Reaction Status Date / Time Penicillins Allergy Verified 07/25/24 16:13 - Past Medical History Past Medical History: Yes Neurological History: No Pertinent History, Stroke ENT History: No Pertinent History, Cataracts Cardiac History: Arrhythmia, High Cholesterol, Hypertension Respiratory History: No Pertinent History Endocrine Medical History: Hypothyroidism Musculoskelatal History: Degenerative Disk Disease, Osteoarthritis GI Medical History: GERD, Gallbladder Disease, Hernia History: No Pertinent History Pyscho-Social History: No Pertinent History Reproductive Disorders: Breast Cancer Comment: REPORTS CVA AFFECTED SKIN PRIMARILY WITH NUMBNESS BUT 90% RESOLVED. PMHX: GERD, BREAST CA (LUMPECTOMY LEFT AND RADIATION) 1999, LEFT TKR 2012, GASTRIC BYPASS. Bile Duct infection. Hiatal Hernia - Past Surgical History Past Surgical History: Yes Neuro Surgical History: No Pertinent History Cardiac History: No Pertinent History Respiratory Surgery: No Pertinent History GI Surgical History: Cholecystectomy Genitourinary Surgical Hx: No Pertinent History Musculskeletal Surgical Hx: Orthopedic Surgery Female Surgical History: Hysterectomy, Lumpectomy Other Surgical History: gastric bypass, carpal tunnel, left knee replacement, bile duct Significant Family History: no pertinent family hx - Social History Smoking Status: Former smoker Exposure to second hand smoke: Yes Alcohol: None Drug Use: none - Social Determinants of Health Will the patient participate in the screening: Yes Do you worry about a steady place to live?: No Do you have any problems with any of the following?: No known problems In the past 12 months,have you had to go without utilities?: No Have you or anyone in your house had to go without enough: No Transportation Issues: No Has anyone in your support network made you feel unsafe?: No Does the patient want assistance with any of the above?: No - Physical Exam Vital Signs: Vital Signs - 24 hr Temp Pulse Resp BP BP Pulse Ox 07/25/24 20:58 97.5 F 102 H 22 125/68 92 L 07/25/24 19:41 74 95 07/25/24 18:30 96 H 25 H 130/90 94 L 07/25/24 18:24 91 L 07/25/24 18:00 97 H 19 142/77 96 07/25/24 17:39 88 20 90 L 07/25/24 17:30 100 H 22 146/85 94 L 07/25/24 17:00 162/103 90 L 07/25/24 16:30 136/87 07/25/24 16:24 93 L 07/25/24 16:07 91 L 07/25/24 16:05 99.6 F 98 H 149/77 149/77 91 L General Appearance: no apparent distress Neurologic Exam: alert, oriented x 3, cooperative, 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 Eye Exam: PERRL/EOMI Ears, Nose, Throat Exam: normal ENT inspection Respiratory Exam: crackles/rales, wheezing Cardiovascular Exam: regular rate/rhythm Gastrointestinal/Abdomen Exam: No tenderness Results - Labs Lab/Micro Results: Lab Results-Last 24 Hours 07/25/24 07/25/24 07/25/24 Range/Units 16:22 16:50 16:50 WBC 6.8 (3.98-10.04) x10^3/uL RBC 3.78 L (3.93-5.22) x10^6/uL Hgb 11.6 (11.2-15.7) g/dL Hct 36.7 (34.1-44.9) % MCV 97.1 H (79.4-94.8) fL MCH 30.7 (25.6-32.2) pg MCHC 31.6 L (32.2-35.5) g/dL RDW 14.0 (11.7-14.4) % Plt Count 231 (182-369) x10^3/uL MPV 9.7 (9.4-12.3) fL Gran % 73.6 H (34.0-71.1) % Immature Gran % (Auto) 0.1 (0.001-0.429) % Nucleat RBC Rel Count 0.0 (0.00-0.2) % Eos # (Auto) 0.01 L (0.04-0.36) x10^3/uL Immature Gran # (Auto) 0.01 (0.001-0.031) x10^3u/L Absolute Lymphs (auto) 1.29 (1.18-3.74) x10^3/uL Absolute Monos (auto) 0.47 (0.24-0.86) x10^3/uL Absolute Nucleated RBC 0.00 (0.00-0.012) x10^3u/L Lymphocytes % 19.0 L (19.3-51.7) % Monocytes % 6.9 (4.7-12.5) % Eosinophils % 0.1 L (0.7-5.8) % Basophils % 0.3 (0.1-1.2) % Absolute Granulocytes 4.99 (1.56-6.13) x10^3/uL Basophils # 0.02 (0.01-0.08) x10^3/uL Sodium (135-145) mmol/L Potassium (3.5-5.1) mmol/L Chloride (98-107) mmol/L Carbon Dioxide (22-30) mmol/L Anion Gap (5-15) MEQ/L BUN (7-17) mg/dL Creatinine (0.52-1.04) mg/dL Estimated GFR ML/MIN Glucose (74-106) mg/dL Lactic Acid 0.8 (0.4-2.0) Calcium (8.4-10.2) mg/dL Magnesium (1.6-2.3) mg/dL Total Bilirubin (0.2-1.3) mg/dL AST (14-36) U/L ALT (0-35) U/L Alkaline Phosphatase (38-126) U/L Troponin I 0.023 (0.000-0.033) ng/mL NT-Pro-B Natriuret Pep (<300) pg/mL Serum Total Protein (6.3-8.2) g/dL Albumin (3.5-5.0) g/dL Influenza Type A Ag (NEGATIVE) Influenza Type B Ag (NEGATIVE) RSV (PCR) (NEGATIVE) SARS-CoV-2 (PCR) (NEGATIVE) 07/25/24 07/25/24 Range/Units 16:50 16:50 WBC (3.98-10.04) x10^3/uL RBC (3.93-5.22) x10^6/uL Hgb (11.2-15.7) g/dL Hct (34.1-44.9) % MCV (79.4-94.8) fL MCH (25.6-32.2) pg MCHC (32.2-35.5) g/dL RDW (11.7-14.4) % Plt Count (182-369) x10^3/uL MPV (9.4-12.3) fL Gran % (34.0-71.1) % Immature Gran % (Auto) (0.001-0.429) % Nucleat RBC Rel Count (0.00-0.2) % Eos # (Auto) (0.04-0.36) x10^3/uL Immature Gran # (Auto) (0.001-0.031) x10^3u/L Absolute Lymphs (auto) (1.18-3.74) x10^3/uL Absolute Monos (auto) (0.24-0.86) x10^3/uL Absolute Nucleated RBC (0.00-0.012) x10^3u/L Lymphocytes % (19.3-51.7) % Monocytes % (4.7-12.5) % Eosinophils % (0.7-5.8) % Basophils % (0.1-1.2) % Absolute Granulocytes (1.56-6.13) x10^3/uL Basophils # (0.01-0.08) x10^3/uL Sodium 137 (135-145) mmol/L Potassium 4.2 (3.5-5.1) mmol/L Chloride 95 L (98-107) mmol/L Carbon Dioxide 36 H (22-30) mmol/L Anion Gap 10.8 (5-15) MEQ/L BUN 30 H (7-17) mg/dL Creatinine 1.15 H (0.52-1.04) mg/dL Estimated GFR 47.0 ML/MIN Glucose 129 H (74-106) mg/dL Lactic Acid (0.4-2.0) Calcium 8.7 (8.4-10.2) mg/dL Magnesium 2.0 (1.6-2.3) mg/dL Total Bilirubin 1.60 H (0.2-1.3) mg/dL AST 30 (14-36) U/L ALT 18 (0-35) U/L Alkaline Phosphatase 62 (38-126) U/L Troponin I (0.000-0.033) ng/mL NT-Pro-B Natriuret Pep 6280 (<300) pg/mL Serum Total Protein 6.2 L (6.3-8.2) g/dL Albumin 4.1 (3.5-5.0) g/dL Influenza Type A Ag NEGATIVE (NEGATIVE) Influenza Type B Ag NEGATIVE (NEGATIVE) RSV (PCR) NEGATIVE (NEGATIVE) SARS-CoV-2 (PCR) NEGATIVE (NEGATIVE) - Radiology Impressions Radiology Exams & Impressions: Radiology Procedures Category Date Time Status CHEST 1 VIEW (PORTABLE) Stat Exams 07/25/24 16:23 Completed - Other Procedures and Tests Respiratory Therapy 07/25/24 19:41 EKG REPEAT IN AM Oxygen Nasal Cannula 2 lpm 07/26/24 08:00 Respiratory Therapy Assessment DAILY Assessment/Plan (1) Bilateral pulmonary infiltrates on chest x-ray Current Visit: Yes Status: Acute Assessment & Plan: 83 female with medical history of hypothyroidism, HLD, COPD on 2 L supplemental oxygen at night, CHF, HTN, CVA, GERD, chronic anemia, vocal cord issue yet to follow-up with ENT presented to ER with complaint of shortness of breath. Admitted for acute on chronic CHF with exacerbation unknown EF, pneumonia, acute COPD exacerbation, acute hypoxic respiratory failure. Admit patient to inpatient likely requiring greater than 2 midnight stay #Acute hypoxic respiratory failure #Acute CHF with exacerbation > Patient requires as needed 2 L supplemental oxygen at night but now persistently requiring 2 L supplemental oxygen. proBNP elevated. Chest x-ray concerning for moderate bilateral effusion. No recent TTE. S/p IV Lasix 40 mg once in ER. Started on IV Lasix 40 mg daily. TTE at this admission. #Acute COPD exacerbation #Pneumonia > Chest x-ray concerning for bilateral basilar infiltrate. S/p IV levofloxacin in ER. Started on IV ceftriaxone 1 g daily, azithromycin 500 mg daily. Started on IV methylprednisolone 40 mg twice daily. DuoNeb. #Hypothyroidism Continue thyroxine 100 mcg daily #GERD Continue pantoprazole 40 mg daily #HTN Continue carvedilol 12.5 mg twice daily #CVA Continue Plavix 75 mg daily, atorvastatin 20 mg daily Telemedicine Statement: 1) Service was provided using HIPAA compliant platform utilizing [employer] for audio/visual equipment. 2) Patient location: [facility] 3) Provider location: [place] 4) Participants graphics production specialist: Bedside RN, patient 5) Consent was obtained and the patient was seen with nurse assisting at the bedside. Anticipated length of stay: I anticipate the patient requires hospital level of care for at least >2 midnights or longer based on the complexity of the patient's medical illness pneumonia, acute COPD exacerbation, acute CHF exacerbation which includes the need for IV steroid, IV diuretics, IV antibiotics that cannot be done at a lower level of care Consent: - Patients identity was confirmed. - Medical condition or illness was discussed with the patient/personal repr esentative. - Current proposed treatment for medical condition or illness was explained to patient/personal associate financial representative along with the likely benefits, significant risks and complications associated with the treatment. - The patient/personal associate financial representative verbally authorized treatment to be provided by audio/video, which may include a limited review of patients current health status, medication or other treatment recommendations, patient education and an opportunity to ask questions about condition and treatment. - I have reviewed all available old records and data - Verbal Consent granted: Yes MIPS Reviewed Home medication, current medication and Inpatient medication with patient Pt was screened for Housing, Food, Utility difficulties, Transportation needs and living conditions I spent total of 79 minutes providing care to this patient which includes time for face to face visit via telemedicine, review of medical records, imaging studies and discussion of findings with providers, the patient. Code(s): R91.8 - OTHER NONSPECIFIC ABNORMAL FINDING OF LUNG FIELD (2) CHF exacerbation Current Visit: Yes Status: Acute Code(s): I50.9 - HEART FAILURE, UNSPECIFIED (3) Hypoxia Current Visit: No Status: Resolved Code(s): R09.02 - HYPOXEMIA Telemedicine Encounter - Telemedicine Encounter Telemedicine Encounter: "The entirety of this encounter was performed via Telemedicine" This visit was performed using real-time audio and video connection between my l ocation and thepatients locationwith the assistance of a surrogateat the patients location. Written or verbal consent was obtained from the patient/guardian to perform this visit [facility]. Any patient questions regarding the telemedicine interaction were answered.
[2024-07-25] MEDS ORDERED: DUONEB 0.5-3 MG/3 ml Neb IH PRN (21:33)
[2024-07-25] MEDS ORDERED: solu-MEDROL ONE (22:53)
[2024-07-25] MEDS ORDERED: ZOCOR 20MG ONE (22:53)
[2024-07-25] MEDS ORDERED: Sterile H2O 10 ml IJ ONE (22:53)
[2024-07-25] MEDS: NON-FORMULARY ITEM (Atorvastatin Calcium 20 MG Tab) PO SCH (22:58)
[2024-07-25] MEDS: COREG 12.5 MG PO SCH (23:23)
[2024-07-25] MEDS: solu-MEDROL 40 MG, Sterile H2O 10 ml 1 ML IV SCH (23:23)
[2024-07-25] MEDS: ZOCOR 20MG PO SCH (23:24)
[2024-07-26 01:36] LABS: Potassium 4.1 mmol/L (3.5-5.1)
[2024-07-26 01:57] LABS: TROPONIN 0.046 ng/mL (0.000-0.033)
[2024-07-26 05:41] LABS: Absolute Neutrophil Ct (ANC) 4.91 x10^3/uL (1.56-6.13); BASOPHIL % 0.2 % (0.1-1.2); Basophil (Absolute #) 0.01 x10^3/uL (0.01-0.08); Eosinophil (Absolute #) 0 x10^3/uL (0.04-0.36); Hemoglobin 11.3 g/dL (11.2-15.7); IMMATURE GRAN # 0.03 x10^3u/L (0.001-0.031); IMMATURE GRAN % 0.5 % (0.001-0.429); Lymphocyte (Absolute #) 0.81 x10^3/uL (1.18-3.74); Lymphocytes % 13.8 % (19.3-51.7); Mean Cell Volume 95.6 fL (79.4-94.8); Mean Corpuscular Hemoglobin 30.9 pg (25.6-32.2); Mean Corpuscular Hgb Concent. 32.3 g/dL (32.2-35.5); Mean Platelet Volume 10.5 fL (9.4-12.3); Monocyte (Absolute #) 0.12 x10^3/uL (0.24-0.86); Neutrophil % 83.5 % (34.0-71.1); Platelet Count 209 x10^3/uL (182-369); Red Blood Count 3.66 x10^6/uL (3.93-5.22); White Blood Count 5.9 x10^3/uL (3.98-10.04)
[2024-07-26 05:58] LABS: ALBUMIN 3.8 g/dL (3.5-5.0); BILIRUBIN,TOTAL 1.5 mg/dL (0.2-1.3); Calcium 8.6 mg/dL (8.4-10.2); Creatinine 1 0.96 mg/dL (0.52-1.04); EST GLOMERULAR FILTRATION RATE 58.3 ML/MIN; Potassium 4.4 mmol/L (3.5-5.1); Total Protein 6.3 g/dL (6.3-8.2)
[2024-07-26] MEDS: DUONEB 0.5-3 MG/3 ml Neb IH SCH ×2 (06:48→18:48)
--- NOTE | 2024-07-26 08:11 | PCM.NOTE ---
Date and Time: 07/26/24 0803 Subjective Assessment: The patient is an 83-year-old female with a medical history of hypothyroidism, hyperlipidemia, COPD on 2L oxygen at night, CHF, hypertension, prior CVA, GERD, chronic anemia, and vocal cord dysfunction for which she has yet to follow up with ENT. She presented to the ER with complaints of shortness of breath, which had worsened over the past few days, particularly with exertion. She also reported persistent hypoxia at home. Additionally, she has had difficulty speaking for the past four weeks due to her vocal cord issue. On admission, the patient was alert and oriented 4 and required 2L supplemental oxygen for hypoxia. Initial labs showed a WBC of 6.8, BUN of 30, creatinine of 1.15, and a significantly elevated proBNP of 6280. Chest X-ray revealed worsening moderate bilateral bibasilar infiltrates and/or effusions. She was treated in the ER with IV levofloxacin and Lasix. Today, she is on 3L nasal cannula, slightly above her 2L baseline, and reports feeling better. Lung sounds are clear on exam. Troponins were slightly elevated (3), likely due to demand ischemia in the setting of pneumonia. She has no peripheral edema. The plan is to continue IV antibiotics, steroids, Advair, Duonebs for aspiration pneumonia, and Lasix for CHF management. She currently denies chest pain, abdominal pain, nausea, vomiting, falls, syncope, headache, vision changes, or focal neurological deficits. - Review of Systems Constitutional: No Fever, No Chills Eyes: No Symptoms Ears, Nose, & Throat: No Symptoms Respiratory: Short Of Breath, No Cough Cardiac: No Chest Pain, No Edema, No Syncope Abdominal/Gastrointestinal: No Abdominal Pain, No Nausea, No Vomiting, No Diarrhea Genitourinary Symptoms: No Dysuria Musculoskeletal: No Back Pain, No Neck Pain Skin: No Rash Neurological: No Dizziness, No Focal Weakness, No Sensory Changes Psychological: No Symptoms Endocrine: No Symptoms Hematologic/Lymphatic: No Symptoms Immunological/Allergic: No Symptoms Objective Exam General Appearance: no apparent distress, alert Neurologic Exam: alert, oriented x 3, cooperative, normal mood/affect, nml cerebellar function, sensation nml, No motor deficits Skin Exam: normal color, warm, dry Eye Exam: PERRL, EOMI, eyes nml inspection Ears, Nose, Throat Exam: normal ENT inspection, pharynx normal, moist mucous membranes Neck Exam: normal inspection, non-tender, supple, full range of motion Respiratory Exam: normal breath sounds, lungs clear, diminished breath sounds (BLLL), No respiratory distress Cardiovascular Exam: regular rate/rhythm, normal heart sounds Gastrointestinal/Abdomen Exam: soft, No tenderness, No mass Extremity Exam: normal inspection, normal range of motion Back Exam: normal inspection, normal range of motion, No CVA tenderness, No vertebral tenderness Pelvic Exam: deferred Rectal Exam: deferred Objective Data Vital Signs: Vital Signs - 24 hr Temp Pulse Resp BP BP Pulse Ox 07/26/24 07:04 88 18 92 L 07/26/24 04:00 97.5 F 86 18 114/56 95 07/26/24 00:00 97.3 F 105 H 18 141/70 95 07/25/24 20:58 97.5 F 102 H 22 125/68 92 L 07/25/24 19:41 74 95 07/25/24 18:30 96 H 25 H 130/90 94 L 07/25/24 18:24 91 L 07/25/24 18:00 97 H 19 142/77 96 07/25/24 17:39 88 20 90 L 07/25/24 17:30 100 H 22 146/85 94 L 07/25/24 17:00 162/103 90 L 07/25/24 16:30 136/87 07/25/24 16:24 93 L 07/25/24 16:07 91 L 07/25/24 16:05 99.6 F 98 H 149/77 149/77 91 L Pain Assessment - Last Documented Pain Intensity 0 Intake and Output: Intake & Output 07/23/24 07/24/24 07/25/24 07/26/24 11:59 11:59 11:59 11:59 Intake Total 720 Output Total 600 Balance 120 Weight 73 kg Lab Results: Lab Results-Last 24 Hours 07/25/24 07/25/24 07/25/24 Range/Units 16:22 16:50 16:50 WBC 6.8 (3.98-10.04) x10^3/uL RBC 3.78 L (3.93-5.22) x10^6/uL Hgb 11.6 (11.2-15.7) g/dL Hct 36.7 (34.1-44.9) % MCV 97.1 H (79.4-94.8) fL MCH 30.7 (25.6-32.2) pg MCHC 31.6 L (32.2-35.5) g/dL RDW 14.0 (11.7-14.4) % Plt Count 231 (182-369) x10^3/uL MPV 9.7 (9.4-12.3) fL Gran % 73.6 H (34.0-71.1) % Immature Gran % (Auto) 0.1 (0.001-0.429) % Nucleat RBC Rel Count 0.0 (0.00-0.2) % Eos # (Auto) 0.01 L (0.04-0.36) x10^3/uL Immature Gran # (Auto) 0.01 (0.001-0.031) x10^3u/L Absolute Lymphs (auto) 1.29 (1.18-3.74) x10^3/uL Absolute Monos (auto) 0.47 (0.24-0.86) x10^3/uL Absolute Nucleated RBC 0.00 (0.00-0.012) x10^3u/L Lymphocytes % 19.0 L (19.3-51.7) % Monocytes % 6.9 (4.7-12.5) % Eosinophils % 0.1 L (0.7-5.8) % Basophils % 0.3 (0.1-1.2) % Absolute Granulocytes 4.99 (1.56-6.13) x10^3/uL Basophils # 0.02 (0.01-0.08) x10^3/uL Sodium (135-145) mmol/L Potassium (3.5-5.1) mmol/L Chloride (98-107) mmol/L Carbon Dioxide (22-30) mmol/L Anion Gap (5-15) MEQ/L BUN (7-17) mg/dL Creatinine (0.52-1.04) mg/dL Estimated GFR ML/MIN Glucose (74-106) mg/dL Lactic Acid 0.8 (0.4-2.0) Calcium (8.4-10.2) mg/dL Magnesium (1.6-2.3) mg/dL Total Bilirubin (0.2-1.3) mg/dL AST (14-36) U/L ALT (0-35) U/L Alkaline Phosphatase (38-126) U/L Troponin I 0.023 (0.000-0.033) ng/mL NT-Pro-B Natriuret Pep (<300) pg/mL Serum Total Protein (6.3-8.2) g/dL Albumin (3.5-5.0) g/dL Influenza Type A Ag (NEGATIVE) Influenza Type B Ag (NEGATIVE) RSV (PCR) (NEGATIVE) SARS-CoV-2 (PCR) (NEGATIVE) 07/25/24 07/25/24 07/25/24 Range/Units 16:50 16:50 21:33 WBC (3.98-10.04) x10^3/uL RBC (3.93-5.22) x10^6/uL Hgb (11.2-15.7) g/dL Hct (34.1-44.9) % MCV (79.4-94.8) fL MCH (25.6-32.2) pg MCHC (32.2-35.5) g/dL RDW (11.7-14.4) % Plt Count (182-369) x10^3/uL MPV (9.4-12.3) fL Gran % (34.0-71.1) % Immature Gran % (Auto) (0.001-0.429) % Nucleat RBC Rel Count (0.00-0.2) % Eos # (Auto) (0.04-0.36) x10^3/uL Immature Gran # (Auto) (0.001-0.031) x10^3u/L Absolute Lymphs (auto) (1.18-3.74) x10^3/uL Absolute Monos (auto) (0.24-0.86) x10^3/uL Absolute Nucleated RBC (0.00-0.012) x10^3u/L Lymphocytes % (19.3-51.7) % Monocytes % (4.7-12.5) % Eosinophils % (0.7-5.8) % Basophils % (0.1-1.2) % Absolute Granulocytes (1.56-6.13) x10^3/uL Basophils # (0.01-0.08) x10^3/uL Sodium 137 (135-145) mmol/L Potassium 4.2 (3.5-5.1) mmol/L Chloride 95 L (98-107) mmol/L Carbon Dioxide 36 H (22-30) mmol/L Anion Gap 10.8 (5-15) MEQ/L BUN 30 H (7-17) mg/dL Creatinine 1.15 H (0.52-1.04) mg/dL Estimated GFR 47.0 ML/MIN Glucose 129 H (74-106) mg/dL Lactic Acid (0.4-2.0) Calcium 8.7 (8.4-10.2) mg/dL Magnesium 2.0 (1.6-2.3) mg/dL Total Bilirubin 1.60 H (0.2-1.3) mg/dL AST 30 (14-36) U/L ALT 18 (0-35) U/L Alkaline Phosphatase 62 (38-126) U/L Troponin I 0.036 H* (0.000-0.033) ng/mL NT-Pro-B Natriuret Pep 6280 (<300) pg/mL Serum Total Protein 6.2 L (6.3-8.2) g/dL Albumin 4.1 (3.5-5.0) g/dL Influenza Type A Ag NEGATIVE (NEGATIVE) Influenza Type B Ag NEGATIVE (NEGATIVE) RSV (PCR) NEGATIVE (NEGATIVE) SARS-CoV-2 (PCR) NEGATIVE (NEGATIVE) 07/26/24 07/26/24 07/26/24 Range/Units 01:08 05:20 05:20 WBC 5.9 (3.98-10.04) x10^3/uL RBC 3.66 L (3.93-5.22) x10^6/uL Hgb 11.3 (11.2-15.7) g/dL Hct 35.0 (34.1-44.9) % MCV 95.6 H (79.4-94.8) fL MCH 30.9 (25.6-32.2) pg MCHC 32.3 (32.2-35.5) g/dL RDW 14.0 (11.7-14.4) % Plt Count 209 (182-369) x10^3/uL MPV 10.5 (9.4-12.3) fL Gran % 83.5 H (34.0-71.1) % Immature Gran % (Auto) 0.5 H (0.001-0.429) % Nucleat RBC Rel Count 0.0 (0.00-0.2) % Eos # (Auto) 0 L (0.04-0.36) x10^3/uL Immature Gran # (Auto) 0.03 (0.001-0.031) x10^3u/L Absolute Lymphs (auto) 0.81 L (1.18-3.74) x10^3/uL Absolute Monos (auto) 0.12 L (0.24-0.86) x10^3/uL Absolute Nucleated RBC 0.00 (0.00-0.012) x10^3u/L Lymphocytes % 13.8 L (19.3-51.7) % Monocytes % 2.0 L (4.7-12.5) % Eosinophils % 0.0 L (0.7-5.8) % Basophils % 0.2 (0.1-1.2) % Absolute Granulocytes 4.91 (1.56-6.13) x10^3/uL Basophils # 0.01 (0.01-0.08) x10^3/uL Sodium 135 (135-145) mmol/L Potassium 4.1 4.4 (3.5-5.1) mmol/L Chloride 92 L (98-107) mmol/L Carbon Dioxide 36 H (22-30) mmol/L Anion Gap 11.0 (5-15) MEQ/L BUN 34 H (7-17) mg/dL Creatinine 0.96 (0.52-1.04) mg/dL Estimated GFR 58.3 ML/MIN Glucose 178 H (74-106) mg/dL Lactic Acid (0.4-2.0) Calcium 8.6 (8.4-10.2) mg/dL Magnesium 2.0 (1.6-2.3) mg/dL Total Bilirubin 1.50 H (0.2-1.3) mg/dL AST 47 H (14-36) U/L ALT 18 (0-35) U/L Alkaline Phosphatase 29 L (38-126) U/L Troponin I 0.046 H* (0.000-0.033) ng/mL NT-Pro-B Natriuret Pep 9010 (<300) pg/mL Serum Total Protein 6.3 (6.3-8.2) g/dL Albumin 3.8 (3.5-5.0) g/dL Influenza Type A Ag (NEGATIVE) Influenza Type B Ag (NEGATIVE) RSV (PCR) (NEGATIVE) SARS-CoV-2 (PCR) (NEGATIVE) 07/26/24 Range/Units 05:20 WBC (3.98-10.04) x10^3/uL RBC (3.93-5.22) x10^6/uL Hgb (11.2-15.7) g/dL Hct (34.1-44.9) % MCV (79.4-94.8) fL MCH (25.6-32.2) pg MCHC (32.2-35.5) g/dL RDW (11.7-14.4) % Plt Count (182-369) x10^3/uL MPV (9.4-12.3) fL Gran % (34.0-71.1) % Immature Gran % (Auto) (0.001-0.429) % Nucleat RBC Rel Count (0.00-0.2) % Eos # (Auto) (0.04-0.36) x10^3/uL Immature Gran # (Auto) (0.001-0.031) x10^3u/L Absolute Lymphs (auto) (1.18-3.74) x10^3/uL Absolute Monos (auto) (0.24-0.86) x10^3/uL Absolute Nucleated RBC (0.00-0.012) x10^3u/L Lymphocytes % (19.3-51.7) % Monocytes % (4.7-12.5) % Eosinophils % (0.7-5.8) % Basophils % (0.1-1.2) % Absolute Granulocytes (1.56-6.13) x10^3/uL Basophils # (0.01-0.08) x10^3/uL Sodium (135-145) mmol/L Potassium (3.5-5.1) mmol/L Chloride (98-107) mmol/L Carbon Dioxide (22-30) mmol/L Anion Gap (5-15) MEQ/L BUN (7-17) mg/dL Creatinine (0.52-1.04) mg/dL Estimated GFR ML/MIN Glucose (74-106) mg/dL Lactic Acid (0.4-2.0) Calcium (8.4-10.2) mg/dL Magnesium (1.6-2.3) mg/dL Total Bilirubin (0.2-1.3) mg/dL AST (14-36) U/L ALT (0-35) U/L Alkaline Phosphatase (38-126) U/L Troponin I 0.042 H* (0.000-0.033) ng/mL NT-Pro-B Natriuret Pep (<300) pg/mL Serum Total Protein (6.3-8.2) g/dL Albumin (3.5-5.0) g/dL Influenza Type A Ag (NEGATIVE) Influenza Type B Ag (NEGATIVE) RSV (PCR) (NEGATIVE) SARS-CoV-2 (PCR) (NEGATIVE) Radiology Exams: Radiology Procedures Category Date Time Status CHEST 1 VIEW (PORTABLE) Stat Exams 07/25/24 16:23 Completed ECHO W/2D AND DOPPLER [US] Routine Exams 07/25/24 21:33 Stop Req Medications: Medications Generic Name Dose Route Start Last Admin Trade Name Freq PRN Reason Stop Dose Admin Acetaminophen 650 mg 07/25/24 19:41 Acetaminophen 325 Mg Tablet PO 08/24/24 19:40 Q4H PRN PRN PAIN, FEVER, HEADACHE Albuterol/Ipratropium 3 ml 07/26/24 08:00 07/26/24 06:48 Ipratropium/Albuterol Sulfate 3 Ml Ampul.[facility] 08/25/24 07:59 3 ml TID KARIME Administration Albuterol/Ipratropium 3 ml 07/25/24 21:33 Ipratropium/Albuterol Sulfate 3 Ml Ampul.[facility] 08/24/24 21:32 Q4HPRN PRN SHORTNESS OF BREATH/WHEEZING Carvedilol 25 mg 07/25/24 22:00 07/25/24 23:23 Carvedilol 12.5 Mg Tablet PO 08/24/24 21:59 25 mg BID KARIME Administration Clopidogrel Bisulfate 75 mg 07/26/24 10:00 Clopidogrel Bisulfate 75 Mg Tablet PO 08/25/24 09:59 DAILY KARIME Methylprednisolone Sodium 0 mg 07/25/24 22:00 07/25/24 23:23 Succinate 40 mg/ Sterile Water IV 08/24/24 21:59 40 mg 1 ml Q12HT KARIME Administration Ezetimibe 10 mg 07/26/24 10:00 Ezetimibe 10 Mg Tab PO 08/25/24 09:59 DAILY [facility] Enoxaparin Sodium 40 mg 07/26/24 10:00 Enoxaparin Sodium 40 Mg/0.4 Ml Syringe SQ 08/25/24 09:59 DAILY [facility] Famotidine 40 mg 07/26/24 10:00 Famotidine 20 Mg Tablet PO 08/25/24 09:59 DAILY [facility] Furosemide 40 mg 07/26/24 10:00 Furosemide 40 Mg/4 Ml Vial IV 08/25/24 09:59 DAILY [facility] Azithromycin 500 mg/ Sodium 250 mls @ 250 mls/hr 07/26/24 10:00 Chloride IV 08/25/24 09:59 Q24H10 [facility] Ceftriaxone Sodium 1 gm in 100 mls @ 200 mls/hr 07/26/24 10:00 Rocephin 1 Gm / 100 Ml Nacl IV 08/25/24 09:59 Q24H10 [facility] Levothyroxine Sodium 100 mcg 07/26/24 10:00 Levothyroxine Sodium 100 Mcg Tablet PO 08/25/24 09:59 DAILY [facility] Ondansetron HCl 4 mg 07/25/24 21:27 Ondansetron Hcl 4 Mg/2 Ml Vial IV 08/24/24 21:26 Q6H PRN PRN NAUSEA/VOMITING Pantoprazole Sodium 40 mg 07/26/24 10:00 Protonix (Pantoprazole) 40 Mg Tablet PO 08/25/24 09:59 DAILY [facility] Fluticasone/Salmeterol 2 puff 07/26/24 19:00 Fluticasone/Salmeterol 115/21 60 Puff Aer.W.Adap IH 08/25/24 18:59 BIDRT KARIME Simvastatin 20 mg 07/26/24 22:00 07/25/24 23:24 Simvastatin 20 Mg Tablet PO 08/25/24 21:59 20 mg HS KARIME Administration Discontinued Medications Generic Name Dose Route Start Last Admin Trade Name Freq PRN Reason Stop Dose Admin Albuterol/Ipratropium Confirm 07/25/24 17:31 Ipratropium/Albuterol Sulfate 3 Ml Ampul.Neb Administered 07/25/24 17:32 Dose 3 ml IH .STK-MED ONE Albuterol/Ipratropium 3 ml 07/25/24 17:34 07/25/24 17:35 Ipratropium/Albuterol Sulfate 3 Ml Ampul.Neb IH 07/25/24 17:35 3 ml STAT ONE Administration Furosemide 40 mg 07/25/24 17:47 07/25/24 17:51 Furosemide 40 Mg/4 Ml Vial IV 07/25/24 17:48 40 mg STAT ONE Administration Furosemide Confirm 07/25/24 17:49 Furosemide 40 Mg/4 Ml Vial Administered 07/25/24 17:50 Dose 40 mg .ROUTE .STK-MED ONE Furosemide 40 mg 07/25/24 19:41 07/25/24 21:25 Furosemide 40 Mg/4 Ml Vial IV 08/24/24 19:40 Not Given Q12H KARIME Levofloxacin/Dextrose 500 mg in 100 mls @ 100 mls/hr 07/25/24 17:47 07/25/24 19:01 Levofloxacin 500mg/100ml D5w IV 07/25/24 18:46 Infused STAT STA Infusion Levofloxacin/Dextrose Confirm 07/25/24 17:50 Levofloxacin 500mg/100ml D5w Administered 07/25/24 17:51 Dose 500 mg in 100 mls @ ud IV .STK-MED ONE Levofloxacin/Dextrose 500 mg in 100 mls @ 100 mls/hr 07/26/24 10:00 Levofloxacin 500mg/100ml D5w IV 08/25/24 09:59 Q24H10 KARIME Methylprednisolone Sodium Succinate Confirm 07/25/24 22:53 Methylprednisolone Sod Suc 40m 40 Mg/Ml Vial Administered 07/25/24 22:54 Dose 40 mg .ROUTE .STK-MED ONE Non-Formulary Medication 20 mg 07/25/24 22:00 07/25/24 22:58 Atorvastatin Calcium PO 08/24/24 21:59 Not Given HS KARIME Ondansetron HCl 4 mg 07/25/24 19:41 Ondansetron Hcl 4 Mg/2 Ml Vial IV 08/24/24 19:40 Q6H PRN PRN NAUSEA/VOMITING Simvastatin Confirm 07/25/24 22:53 Simvastatin 20 Mg Tablet Administered 07/25/24 22:54 Dose 20 mg .ROUTE .STK-MED ONE Sterile Water Confirm 07/25/24 22:53 Water For Injection,Sterile 10 Ml Vial Administered 07/25/24 22:54 Dose 10 ml IJ .STK-MED ONE Assessment/Plan (1) Pneumonia Current Visit: Yes Status: Acute Qualifiers: Pneumonia type: aspiration pneumonia Laterality: bilateral Assessment & Plan: - CXR: Portable chest demonstrates worsening moderate bibasilar infiltrates/atelectasis/effusions. Heart not enlarged for AP portable technique. Bony thorax intact with osteopenia and degenerative changes. - Aztreonam, Azithromycin, Steroids, Advair, duonebs - BC x2 pending - O2 3lNC 92%- Baseline 2lNC- wean as tolerated - CBC, CMP reviewed - Pt had swallow eval at last admission- ST recommended after barium swallow: -SIT UPRIGHT FOR ALL MEALS AND REMAIN UPRIGHT AFTER MEALS -TAKE SMALL DRINKS AND BITES -SWALLOW FOOD DRY -ALTERNATE SOLIDS AND LIQUIDS -CHIN TUCK Code(s): J18.9 - PNEUMONIA, UNSPECIFIED ORGANISM (2) CHF exacerbation Current Visit: Yes Status: Acute Assessment & Plan: - BNP 9010 - Lasix 40 BID - Strict I&O - Daily weight - No edema Code(s): I50.9 - HEART FAILURE, UNSPECIFIED (3) Elevated troponin I measurement Current Visit: Yes Status: Acute Assessment & Plan: - Likely demand ischemia from CHF and pneumonia- see plans above - Trop x3 elevated - EKG reviewed - Tele - Pt denies CP - Will need OP f/u with cardiology - Dr. Sanon Code(s): R79.89 - OTHER SPECIFIED ABNORMAL FINDINGS OF BLOOD CHEMISTRY (4) COPD with acute exacerbation Current Visit: Yes Status: Acute Assessment & Plan: - See plan above for pneumonia Code(s): J44.1 - CHRONIC OBSTRUCTIVE PULMONARY DISEASE W (ACUTE) EXACERBATION (5) History of CVA (cerebrovascular accident) Current Visit: Yes Status: Chronic Assessment & Plan: - Continue Plavix 75 mg daily, atorvastatin 20 mg daily Code(s): Z86.73 - PRSNL HX OF TIA (TIA), AND CEREB INFRC W/O RESID DEFICITS (6) Vocal cord dysfunction Current Visit: Yes Status: Chronic Assessment & Plan: - Pt has an upcoming appointment with ENT for further evaluation - Last admission pt had a ST eval and barium swallow and recommended: -SIT UPRIGHT FOR ALL MEALS AND REMAIN UPRIGHT AFTER MEALS -TAKE SMALL DRINKS AND BITES -SWALLOW FOOD DRY -ALTERNATE SOLIDS AND LIQUIDS -CHIN TUCK Code(s): J38.3 - OTHER DISEASES OF VOCAL CORDS (7) GERD (gastroesophageal reflux disease) Current Visit: No Status: Chronic Assessment & Plan: - Continue pantoprazole 40 mg daily Code(s): K21.9 - GASTRO-ESOPHAGEAL REFLUX DISEASE WITHOUT ESOPHAGITIS (8) HTN (hypertension) Current Visit: No Status: Chronic Qualifiers: Hypertension type: primary hypertension Qualified Code(s): I10 - Essential (primary) hypertension Assessment & Plan: - BP stable - Continue carvedilol 12.5 mg twice daily Code(s): I10 - ESSENTIAL (PRIMARY) HYPERTENSION (9) CHRISTY (acute kidney injury) Current Visit: No Status: Resolved Assessment & Plan: - resolved Code(s): N17.9 - ACUTE KIDNEY FAILURE, UNSPECIFIED (10) Hypothyroid Current Visit: No Status: Chronic Assessment & Plan: - Continue thyroxine 100 mcg daily VTE: Lovenox PPI: omeprazole Next of KIN: Child- Nirav Soliz [phone] D/C plan: tomorrow? Code status: Full Code(s): E03.9 - HYPOTHYROIDISM, UNSPECIFIED
[2024-07-26] MEDS: ENOXAPARIN SODIUM SQ SCH (09:54)
[2024-07-26] MEDS: Protonix 40MG Tablet PO SCH (09:55)
[2024-07-26] MEDS: SYNTHROID 100 MCG PO SCH (09:55)
[2024-07-26] MEDS: Zetia 10 MG PO SCH (09:55)
[2024-07-26] MEDS: PLAVIX Tablet PO SCH (09:55)
[2024-07-26] MEDS: Pepcid 20 MG PO SCH (09:55)
[2024-07-26] MEDS: Lasix 40 MG/4 ML IV SCH (09:57)
[2024-07-26] MEDS ORDERED: ZITHROMAX IV*** 500 MG in Sodium Chloride 0.9% 250 ML 250 ML IV SCH (10:00)
[2024-07-26] MEDS ORDERED: Levofloxacin 500MG/100ML D5W 500 MG/100 ML BAG IV SCH (10:00)
[2024-07-26] MEDS ORDERED: ROCEPHIN 1 GM / 100 ML NaCl 1 GM/100 ML IVPB IV SCH (10:00)
[2024-07-26] MEDS ORDERED: NON-FORMULARY ITEM (Famotidine [Famotidine] 40 MG Tablet) PO SCH (10:00)
[2024-07-26] MEDS: ZITHROMAX IV*** 500 MG in Sodium Chloride 0.9% 250 ML 250 ML IV SCH (10:01)
[2024-07-26] MEDS: AZACTAM 1 GM*** 2 GM in Sodium Chloride 0.9% 100 ML IV SCH (13:49)
[2024-07-26] MEDS: Advair Hfa 115/21 Common canister IH SCH (18:49)
[2024-07-26] MEDS ORDERED: AZACTAM 1 GM ONE (21:34)
[2024-07-27 04:51] LABS: Hematocrit 35.6 % (34.1-44.9); Hemoglobin 11.1 g/dL (11.2-15.7); Mean Cell Volume 97.3 fL (79.4-94.8); Mean Corpuscular Hemoglobin 30.3 pg (25.6-32.2); Mean Corpuscular Hgb Concent. 31.2 g/dL (32.2-35.5); Platelet Count 211 x10^3/uL (182-369); Red Blood Count 3.66 x10^6/uL (3.93-5.22); Red Cell Distribution Width 13.9 % (11.7-14.4); White Blood Count 6.4 x10^3/uL (3.98-10.04)
--- NOTE | 2024-07-27 05:08 | PCM.NOTE ---
Date and Time: 07/27/24 050 Subjective Assessment: Ms. Soliz is an 83-year-old female with a complex medical history including COPD on 2L nocturnal oxygen, CHF, prior CVA, vocal cord dysfunction, hypothyroidism, and hyperlipidemia who presented 07/25/24 with complaints of progressive dyspnea and hypoxia, worsened over several days, particularly with exertion. She was found to have aspiration pneumonia and acute CHF exacerbation, supported by a chest X-ray showing bilateral bibasilar infiltrates/effusions and an elevated BNP of 9010. Troponins were mildly elevated, likely reflecting demand ischemia in the setting of infection and volume overload. She was treated IP with IV antibiotics (aztreonam, azithromycin), steroids, Lasix, bronchodilators, and o xygen therapy. Speech difficulties persist due to known vocal cord dysfunction; ST precautions remain in place to reduce aspiration risk. Objective Data Vital Signs: Vital Signs - 24 hr Temp Pulse Resp BP Pulse Ox 07/27/24 03:42 98.4 F 88 17 123/58 94 L 07/27/24 00:00 96.6 F 85 18 122/57 98 07/26/24 20:00 97.9 F 94 H 14 101/52 95 07/26/24 18:50 94 H 18 95 07/26/24 16:00 97.3 F 82 20 110/63 96 07/26/24 12:58 90 18 91 L 07/26/24 12:00 97.3 F 84 24 113/62 92 L 07/26/24 08:00 97.0 F 94 H 20 108/60 94 L 07/26/24 07:04 88 18 92 L Pain Assessment - Last Documented Pain Intensity 0 Intake and Output: Intake & Output 07/24/24 07/25/24 07/26/24 07/27/24 11:59 11:59 11:59 11:59 Intake Total 920 390 Output Total 600 650 Balance 320 -260 Weight 73 kg Lab Results: Lab Results-Last 24 Hours 07/26/24 07/26/24 07/26/24 Range/Units 05:20 05:20 05:20 WBC 5.9 (3.98-10.04) x10^3/uL RBC 3.66 L (3.93-5.22) x10^6/uL Hgb 11.3 (11.2-15.7) g/dL Hct 35.0 (34.1-44.9) % MCV 95.6 H (79.4-94.8) fL MCH 30.9 (25.6-32.2) pg MCHC 32.3 (32.2-35.5) g/dL RDW 14.0 (11.7-14.4) % Plt Count 209 (182-369) x10^3/uL MPV 10.5 (9.4-12.3) fL Gran % 83.5 H (34.0-71.1) % Immature Gran % (Auto) 0.5 H (0.001-0.429) % Nucleat RBC Rel Count 0.0 (0.00-0.2) % Eos # (Auto) 0 L (0.04-0.36) x10^3/uL Immature Gran # (Auto) 0.03 (0.001-0.031) x10^3u/L Absolute Lymphs (auto) 0.81 L (1.18-3.74) x10^3/uL Absolute Monos (auto) 0.12 L (0.24-0.86) x10^3/uL Absolute Nucleated RBC 0.00 (0.00-0.012) x10^3u/L Lymphocytes % 13.8 L (19.3-51.7) % Monocytes % 2.0 L (4.7-12.5) % Eosinophils % 0.0 L (0.7-5.8) % Basophils % 0.2 (0.1-1.2) % Absolute Granulocytes 4.91 (1.56-6.13) x10^3/uL Basophils # 0.01 (0.01-0.08) x10^3/uL Sodium 135 (135-145) mmol/L Potassium 4.4 (3.5-5.1) mmol/L Chloride 92 L (98-107) mmol/L Carbon Dioxide 36 H (22-30) mmol/L Anion Gap 11.0 (5-15) MEQ/L BUN 34 H (7-17) mg/dL Creatinine 0.96 (0.52-1.04) mg/dL Estimated GFR 58.3 ML/MIN Glucose 178 H (74-106) mg/dL Calcium 8.6 (8.4-10.2) mg/dL Total Bilirubin 1.50 H (0.2-1.3) mg/dL AST 47 H (14-36) U/L ALT 18 (0-35) U/L Alkaline Phosphatase 29 L (38-126) U/L Troponin I 0.042 H* (0.000-0.033) ng/mL NT-Pro-B Natriuret Pep 9010 (<300) pg/mL Serum Total Protein 6.3 (6.3-8.2) g/dL Albumin 3.8 (3.5-5.0) g/dL 07/27/24 Range/Units 04:50 WBC 6.4 (3.98-10.04) x10^3/uL RBC 3.66 L (3.93-5.22) x10^6/uL Hgb 11.1 L (11.2-15.7) g/dL Hct 35.6 (34.1-44.9) % MCV 97.3 H (79.4-94.8) fL MCH 30.3 (25.6-32.2) pg MCHC 31.2 L (32.2-35.5) g/dL RDW 13.9 (11.7-14.4) % Plt Count 211 (182-369) x10^3/uL MPV 10.0 (9.4-12.3) fL Gran % (34.0-71.1) % Immature Gran % (Auto) (0.001-0.429) % Nucleat RBC Rel Count (0.00-0.2) % Eos # (Auto) (0.04-0.36) x10^3/uL Immature Gran # (Auto) (0.001-0.031) x10^3u/L Absolute Lymphs (auto) (1.18-3.74) x10^3/uL Absolute Monos (auto) (0.24-0.86) x10^3/uL Absolute Nucleated RBC (0.00-0.012) x10^3u/L Lymphocytes % (19.3-51.7) % Monocytes % (4.7-12.5) % Eosinophils % (0.7-5.8) % Basophils % (0.1-1.2) % Absolute Granulocytes (1.56-6.13) x10^3/uL Basophils # (0.01-0.08) x10^3/uL Sodium (135-145) mmol/L Potassium (3.5-5.1) mmol/L Chloride (98-107) mmol/L Carbon Dioxide (22-30) mmol/L Anion Gap (5-15) MEQ/L BUN (7-17) mg/dL Creatinine (0.52-1.04) mg/dL Estimated GFR ML/MIN Glucose (74-106) mg/dL Calcium (8.4-10.2) mg/dL Total Bilirubin (0.2-1.3) mg/dL AST (14-36) U/L ALT (0-35) U/L Alkaline Phosphatase (38-126) U/L Troponin I (0.000-0.033) ng/mL NT-Pro-B Natriuret Pep (<300) pg/mL Serum Total Protein (6.3-8.2) g/dL Albumin (3.5-5.0) g/dL Radiology Exams: Radiology Procedures Category Date Time Status CHEST 1 VIEW (PORTABLE) Stat Exams 07/25/24 16:23 Completed Medications: Medications Generic Name Dose Route Start Last Admin Trade Name Freq PRN Reason Stop Dose Admin Acetaminophen 650 mg 07/25/24 19:41 Acetaminophen 325 Mg Tablet PO 08/24/24 19:40 Q4H PRN PRN PAIN, FEVER, HEADACHE Albuterol/Ipratropium 3 ml 07/25/24 21:33 Ipratropium/Albuterol Sulfate 3 Ml Ampul.Neb 08/24/24 21:32 Q4HPRN PRN SHORTNESS OF BREATH/WHEEZING Albuterol/Ipratropium 3 ml 07/26/24 13:00 07/26/24 19:38 Ipratropium/Albuterol Sulfate 3 Ml Ampul.Neb 08/25/24 07:59 Not Given TIDRT KARIME Carvedilol 25 mg 07/25/24 22:00 07/26/24 21:37 Carvedilol 12.5 Mg Tablet PO 08/24/24 21:59 25 mg BID KARIME Administration Clopidogrel Bisulfate 75 mg 07/26/24 10:00 07/26/24 09:55 Clopidogrel Bisulfate 75 Mg Tablet PO 08/25/24 09:59 75 mg DAILY KARIME Administration Methylprednisolone Sodium 0 mg 07/25/24 22:00 07/26/24 21:37 Succinate 40 mg/ Sterile Water IV 08/24/24 21:59 40 mg 1 ml Q12HT KARIME Administration Ezetimibe 10 mg 07/26/24 10:00 07/26/24 09:55 Ezetimibe 10 Mg Tab PO 08/25/24 09:59 10 mg DAILY KARIME Administration Enoxaparin Sodium 40 mg 07/26/24 10:00 07/26/24 09:54 Enoxaparin Sodium 40 Mg/0.4 Ml Syringe SQ 08/25/24 09:59 40 mg DAILY KARIME Administration Famotidine 40 mg 07/26/24 10:00 07/26/24 09:55 Famotidine 20 Mg Tablet PO 08/25/24 09:59 40 mg DAILY KARIME Administration Furosemide 40 mg 07/26/24 10:00 07/26/24 09:57 Furosemide 40 Mg/4 Ml Vial IV 08/25/24 09:59 40 mg DAILY KARIME Administration Aztreonam 2 gm/ Sodium 100 mls @ 200 mls/hr 07/26/24 14:00 07/26/24 21:36 Chloride IV 07/29/24 13:59 200 mls/hr Q8HT KARIME Administration Azithromycin 500 mg/ Sodium 250 mls @ 250 mls/hr 07/26/24 10:00 07/26/24 10:01 Chloride IV 08/25/24 09:59 250 mls/hr Q24H10 KARIME Administration Levothyroxine Sodium 100 mcg 07/26/24 10:00 07/26/24 09:55 Levothyroxine Sodium 100 Mcg Tablet PO 08/25/24 09:59 100 mcg DAILY KARIME Administration Ondansetron HCl 4 mg 07/25/24 21:27 Ondansetron Hcl 4 Mg/2 Ml Vial IV 08/24/24 21:26 Q6H PRN PRN NAUSEA/VOMITING Pantoprazole Sodium 40 mg 07/26/24 10:00 07/26/24 09:55 Protonix (Pantoprazole) 40 Mg Tablet PO 08/25/24 09:59 40 mg DAILY KARIME Administration Fluticasone/Salmeterol 2 puff 07/26/24 19:00 07/26/24 18:49 Fluticasone/Salmeterol 115/21 60 Puff Aer.W.Adap 08/25/24 18:59 2 puff BIDRT KARIME Administration Simvastatin 20 mg 07/26/24 22:00 07/26/24 21:52 Simvastatin 20 Mg Tablet PO 08/25/24 21:59 20 mg HS KARIME Administration Discontinued Medications Generic Name Dose Route Start Last Admin Trade Name Edis PRN Reason Stop Dose Admin Albuterol/Ipratropium Confirm 07/25/24 17:31 Ipratropium/Albuterol Sulfate 3 Ml Ampul.Neb Administered 07/25/24 17:32 Dose 3 ml IH .STK-MED ONE Albuterol/Ipratropium 3 ml 07/25/24 17:34 07/25/24 17:35 Ipratropium/Albuterol Sulfate 3 Ml Ampul.Neb 07/25/24 17:35 3 ml STAT ONE Administration Albuterol/Ipratropium 3 ml 07/26/24 08:00 07/26/24 19:39 Ipratropium/Albuterol Sulfate 3 Ml Ampul.Neb 08/25/24 07:59 Not Given TID KARIME Aztreonam Confirm 07/26/24 21:34 Aztreonam 1 Gm Vial Administered 07/26/24 21:35 Dose 1 gm .ROUTE .STK-MED ONE Furosemide 40 mg 07/25/24 17:47 07/25/24 17:51 Furosemide 40 Mg/4 Ml Vial IV 07/25/24 17:48 40 mg STAT ONE Administration Furosemide Confirm 07/25/24 17:49 Furosemide 40 Mg/4 Ml Vial Administered 07/25/24 17:50 Dose 40 mg .ROUTE .STK-MED ONE Furosemide 40 mg 07/25/24 19:41 07/25/24 21:25 Furosemide 40 Mg/4 Ml Vial IV 08/24/24 19:40 Not Given Q12H KARIME Levofloxacin/Dextrose 500 mg in 100 mls @ 100 mls/hr 07/25/24 17:47 07/25/24 19:01 Levofloxacin 500mg/100ml D5w IV 07/25/24 18:46 Infused STAT STA Infusion Levofloxacin/Dextrose Confirm 07/25/24 17:50 Levofloxacin 500mg/100ml D5w Administered 07/25/24 17:51 Dose 500 mg in 100 mls @ ud IV .STK-MED ONE Levofloxacin/Dextrose 500 mg in 100 mls @ 100 mls/hr 07/26/24 10:00 Levofloxacin 500mg/100ml D5w IV 08/25/24 09:59 Q24H10 [facility] Azithromycin 500 mg/ Sodium 250 mls @ 250 mls/hr 07/26/24 10:00 Chloride IV 08/25/24 09:59 Q24H10 [facility] Ceftriaxone Sodium 1 gm in 100 mls @ 200 mls/hr 07/26/24 10:00 Rocephin 1 Gm / 100 Ml Nacl IV 08/25/24 09:59 Q24H10 KARIME Methylprednisolone Sodium Succinate Confirm 07/25/24 22:53 Methylprednisolone Sod Suc 40m 40 Mg/Ml Vial Administered 07/25/24 22:54 Dose 40 mg .ROUTE .STK-MED ONE Non-Formulary Medication 20 mg 07/25/24 22:00 07/25/24 22:58 Atorvastatin Calcium PO 08/24/24 21:59 Not Given HS [facility] Ondansetron HCl 4 mg 07/25/24 19:41 Ondansetron Hcl 4 Mg/2 Ml Vial IV 08/24/24 19:40 Q6H PRN PRN NAUSEA/VOMITING Simvastatin Confirm 07/25/24 22:53 Simvastatin 20 Mg Tablet Administered 07/25/24 22:54 Dose 20 mg .ROUTE .STK-MED ONE Sterile Water Confirm 07/25/24 22:53 Water For Injection,Sterile 10 Ml Vial Administered 07/25/24 22:54 Dose 10 ml IJ .STK-MED ONE Assessment/Plan (1) Pneumonia Current Visit: Yes Status: Acute Qualifiers: Pneumonia type: aspiration pneumonia Laterality: bilateral Assessment & Plan: - CXR reviewed showing worsening moderate bibasilar infiltrates, atelectasis, or effusions. - Aztreonam, Azithromycin, Steroids, Advair, duonebs - BC x1 pending - O2 3lNC 92%- Baseline 2lNC- wean as tolerated - CBC, CMP reviewed - Swallow eval at last admission- ST recommends: SIT UPRIGHT FOR ALL MEALS AND REMAIN UPRIGHT AFTER MEALS TAKE SMALL DRINKS AND BITES SWALLOW FOOD DRY ALTERNATE SOLIDS AND LIQUIDS -[facility]) Code(s): J18.9 - PNEUMONIA, UNSPECIFIED ORGANISM (2) CHF exacerbation Current Visit: Yes Status: Acute Assessment & Plan: - BNP reviewed at 9010 - Lasix 40 BID - Strict I&O - Daily weight Code(s): I50.9 - HEART FAILURE, UNSPECIFIED (3) CHRISTY (acute kidney injury) Current Visit: No Status: Resolved Assessment & Plan: - resolved Code(s): N17.9 - ACUTE KIDNEY FAILURE, UNSPECIFIED (4) COPD with acute exacerbation Current Visit: Yes Status: Acute Assessment & Plan: - See plan above for pneumonia Code(s): J44.1 - CHRONIC OBSTRUCTIVE PULMONARY DISEASE W (ACUTE) EXACERBATION (5) Elevated troponin I measurement Current Visit: Yes Status: Acute Assessment & Plan: - Likely demand ischemia from CHF and pneumonia- see plans above - Trop x3 elevated - EKG reviewed - Tele - Pt denies CP - Will need OP f/u with cardiology - Dr. Sanon Code(s): R79.89 - OTHER SPECIFIED ABNORMAL FINDINGS OF BLOOD CHEMISTRY (6) History of CVA (cerebrovascular accident) Current Visit: Yes Status: Chronic Assessment & Plan: - Continue Plavix 75 mg daily, atorvastatin 20 mg daily Code(s): Z86.73 - PRSNL HX OF TIA (TIA), AND CEREB INFRC W/O RESID DEFICITS (7) Vocal cord dysfunction Current Visit: Yes Status: Chronic Assessment & Plan: - Pt has an upcoming appointment with ENT for further evaluation - Last admission pt had a ST eval and barium swallow as stated above- Code(s): J38.3 - OTHER DISEASES OF VOCAL CORDS (8) GERD (gastroesophageal reflux disease) Current Visit: No Status: Chronic Assessment & Plan: - Continue pantoprazole 40 mg daily Code(s): K21.9 - GASTRO-ESOPHAGEAL REFLUX DISEASE WITHOUT ESOPHAGITIS (9) HTN (hypertension) Current Visit: No Status: Chronic Qualifiers: Hypertension type: primary hypertension Qualified Code(s): I10 - Essential (primary) hypertension Assessment & Plan: - BP stable - Continue carvedilol 12.5 mg twice daily Code(s): I10 - ESSENTIAL (PRIMARY) HYPERTENSION (10) Hypothyroid Current Visit: No Status: Chronic Assessment & Plan: - Continue thyroxine 100 mcg daily VTE: Lovenox PPI: omeprazole Next of KIN: Child- Nirav Soliz [phone] Code status: Full Code(s): E03.9 - HYPOTHYROIDISM, UNSPECIFIED
[2024-07-27 05:10] LABS: ALBUMIN 3.8 g/dL (3.5-5.0); ANION GAP 12.3 MEQ/L (5-15); BILIRUBIN,TOTAL 0.9 mg/dL (0.2-1.3); Calcium 8.4 mg/dL (8.4-10.2); Creatinine 1 0.93 mg/dL (0.52-1.04); EST GLOMERULAR FILTRATION RATE 60.6 ML/MIN; Potassium 3.9 mmol/L (3.5-5.1); Total Protein 6.1 g/dL (6.3-8.2)
[2024-07-27 07:59] VITALS: TEMP 97.5
--- NOTE | 2024-07-27 09:23 | PCM.DS ---
Discharge Summary Date of Admission: 07/25/24 19:37 Date of Discharge: 07/27/24 Admitting Physician: ZACH SINGH MD Primary Care Provider: WES ZAVALETA Allergies Allergies Penicillins Allergy (Verified 07/25/24 16:13) Hospital Summary - Hospital Course Hospital Course: Ms. Soliz is an 83-year-old female with a complex medical history, including COPD, CHF, prior CVA, vocal cord dysfunction, hypothyroidism, hyperlipidemia, and GERD, who presented 07/25/24 with progressive dyspnea, hypoxia, and worsening symptoms over several days. She was diagnosed with aspiration pneumonia and acute CHF exacerbation, as supported by bilateral bibasilar infiltrates /effusions on CXR and an elevated BNP of 9010. Troponins were mildly elevated, likely reflecting demand ischemia secondary to infection and volume overload. She was treated with IV antibiotics (aztreonam, azithromycin), steroids, bronchodilators, Lasix, and oxygen therapy. Her swallow evaluation showed continued aspiration risk, and speech therapy recommendations for meal-related precautions were reinforced. She required oxygen support (3L NC, weaning to baseline 2L), and strict I&O as well as daily weights were maintained due to her CHF. Troponin levels were attributed to demand ischemia from the ongoing infection and heart failure, and cardiology follow-up has been arranged. CHRISTY has resolved during hospitalization. Her discharge plan includes continued medication management, adherence to swallowing precautions, and close monitoring of her CHF and respiratory status. She will continue home dosing of lasix and continue Levaquin as OP. Patient is agreeable to plan and stable for discharge. Discharge Note New Diagnosis: CHF exac/pneumonia New Medications: Levaquin/prednisone Follow Up: Cardiology/pcp/pulm I spent 35 minutes [id number] with the patient on the day of discharge performing discharge exam, discussing hospital stay and discharge instructions with patient and caregivers, preparation of discharge records, prescriptions & referral forms and addressing any questions/concerns the patient had as documented above. - Vitals & Intake/Output Vital Signs: Vital Signs Temperature 97.5 F 07/27/24 07:58 Pulse Rate 92 H 07/27/24 07:58 Respiratory Rate 22 07/27/24 07:58 Blood Pressure 139/73 07/27/24 07:58 O2 Sat by Pulse Oximetry 92 L 07/27/24 07:58 Intake & Output: Intake & Output 04/03/0907/25/24 07/26/24 07/27/24 11:59 11:59 11:59 11:59 Intake Total 920 824 Output Total 600 650 Balance 320 174 Weight 73 kg 73 kg - Lab Result Diagrams: 07/27/24 04:50 07/27/24 04:50 Lab Results-Last 24 Hrs: Lab Results-Last 24 Hours 07/27/24 07/27/24 Range/Units 04:50 04:50 WBC 6.4 (3.98-10.04) x10^3/uL RBC 3.66 L (3.93-5.22) x10^6/uL Hgb 11.1 L (11.2-15.7) g/dL Hct 35.6 (34.1-44.9) % MCV 97.3 H (79.4-94.8) fL MCH 30.3 (25.6-32.2) pg MCHC 31.2 L (32.2-35.5) g/dL RDW 13.9 (11.7-14.4) % Plt Count 211 (182-369) x10^3/uL MPV 10.0 (9.4-12.3) fL Sodium 137 (135-145) mmol/L Potassium 3.9 (3.5-5.1) mmol/L Chloride 94 L (98-107) mmol/L Carbon Dioxide 34 H (22-30) mmol/L Anion Gap 12.3 (5-15) MEQ/L BUN 49 H (7-17) mg/dL Creatinine 0.93 (0.52-1.04) mg/dL Estimated GFR 60.6 ML/MIN Glucose 171 H (74-106) mg/dL Calcium 8.4 (8.4-10.2) mg/dL Total Bilirubin 0.90 (0.2-1.3) mg/dL AST 48 H (14-36) U/L ALT 28 (0-35) U/L Alkaline Phosphatase 47 (38-126) U/L Serum Total Protein 6.1 L (6.3-8.2) g/dL Albumin 3.8 (3.5-5.0) g/dL Micro Results-Entire Visit: Microbiology 07/25/24 16:50 Blood Culture - Preliminary Blood - Radiology Exams Ordered Rad Exams-Entire Visit: Radiology Procedures Category Date Time Status CHEST 1 VIEW (PORTABLE) Stat Exams 07/25/24 16:23 Completed CHEST 1 VIEW (PORTABLE) Stat Exams 07/27/24 09:12 Ordered - Procedures and Test Procedures and Tests throughout Hospitalization: Therapy Orders & Screens 07/25/24 17:34 Respiratory Therapy Assessment DAILY Comment: 07/25/24 19:41 EKG REPEAT IN AM Comment: Oxygen Nasal Cannula 2 lpm Comment: Respiratory Therapy Consult ONCE Comment: Reason For Exam: 07/25/24 21:27 Oxygen Nasal Cannula 2 lpm Comment: Diagnosis: COPD, pneumonia 07/26/24 08:00 Respiratory Therapy Assessment DAILY Comment: 07/27/24 08:31 FLUTTER [Flutter Therapy] UD Comment: Diagnosis: COPD, pneumonia Discharge Exam General Appearance: no apparent distress Neurologic Exam: alert, oriented x 3, cooperative Eye Exam: PERRL Ears, Nose, Throat Exam: normal ENT inspection Neck Exam: normal inspection Respiratory Exam: crackles/rales Cardiovascular Exam: regular rate/rhythm, normal heart sounds Gastrointestinal/Abdomen Exam: soft, normal bowel sounds Pelvic Exam: deferred Rectal Exam: deferred Back Exam: normal inspection Extremity Exam: normal inspection Skin Exam: normal color Final Diagnosis/Problem List - Final Discharge Diagnosis/Problem (1) Pneumonia Current Visit: Yes Status: Acute Code(s): J18.9 - PNEUMONIA, UNSPECIFIED ORGANISM (2) CHF exacerbation Current Visit: Yes Status: Acute Code(s): I50.9 - HEART FAILURE, UNSPECIFIED (3) CHRISTY (acute kidney injury) Current Visit: No Status: Resolved Code(s): N17.9 - ACUTE KIDNEY FAILURE, UNSPECIFIED (4) COPD with acute exacerbation Current Visit: Yes Status: Resolved Code(s): J44.1 - CHRONIC OBSTRUCTIVE PULMONARY DISEASE W (ACUTE) EXACERBATION (5) Elevated troponin I measurement Current Visit: Yes Status: Acute Code(s): R79.89 - OTHER SPECIFIED ABNORMAL FINDINGS OF BLOOD CHEMISTRY (6) History of CVA (cerebrovascular accident) Current Visit: Yes Status: Chronic Code(s): Z86.73 - PRSNL HX OF TIA (TIA), AND CEREB INFRC W/O RESID DEFICITS (7) Vocal cord dysfunction Current Visit: Yes Status: Chronic Code(s): J38.3 - OTHER DISEASES OF VOCAL CORDS (8) GERD (gastroesophageal reflux disease) Current Visit: No Status: Chronic Code(s): K21.9 - GASTRO-ESOPHAGEAL REFLUX DISEASE WITHOUT ESOPHAGITIS (9) HTN (hypertension) Current Visit: No Status: Chronic Code(s): I10 - ESSENTIAL (PRIMARY) HYPERTENSION (10) Hypothyroid Current Visit: No Status: Chronic Code(s): E03.9 - HYPOTHYROIDISM, UNSPECIFIED - Discharge Discharge Date: 07/27/24 Disposition: Home, Self-Care Condition: Fair Prescriptions: New Prednisone 20 mg [Deltasone 20 mg] 20 mg PO BID 5 Days #10 tablet levoFLOXacin [Levofloxacin] 750 mg PO DAILY 7 Days #7 tablet Continue Cyanocobalamin (Vitamin B-12) [Vitamin B12] 2,500 mcg SL BID Flaxseed Oil/Rembert 3,6,9 [Sv Flaxseed Oil 1,300 mg Sftgl] 1 each PO HS Cholecalciferol (Vitamin D3) [Vitamin D3] 1,000 unit PO HS Vitamin A 8,000 unit PO HS Ferrous Sulfate [Iron] 325 mg PO DAILY Multivitamin [Multivitamins] 1 each PO DAILY Ezetimibe 10 mg [Zetia 10 MG] 10 mg PO DAILY Carvedilol 12.5 mg [Coreg 12.5 mg] 25 mg PO BID Calcium Carbonate/Vitamin D3 [Calcium 500 mg Chewable Tablet] 1 tab PO BID Tumeric/Ging/[place]/Oreg/Capryl [Candicidal Capsule] 1 each PO HS PANTOPRAZOLE 40 mg Tablet [Protonix 40MG Tablet] 40 mg PO DAILY Levothyroxine Sodium 100 Mcg [Synthroid 100 Mcg] 100 mcg PO DAILY Ubidecarenone/Vit E Acet [Co Q-10 100 mg Softgel] 1 each PO HS Clopidogrel Bisulfate [PLAVIX Tablet] 75 mg PO DAILY Biotin 1,000 mcg PO HS Atorvastatin Calcium [Lipitor 20MG Tablet] 20 mg PO HS Methenamine Hippurate 1 gm PO BID Calcium Polycarbophil [Fiber Lax] 625 mg PO DAILY Cranberry 500 mg PO DAILY Famotidine 40 mg PO DAILY Melatonin 6 mg PO HS Furosemide [Lasix] 20 mg PO BID Follow up with: WES ZAVALETA [Primary Care Provider] -
--- NOTE | 2024-07-27 09:41 | XRAY ---
Indication: Short of breath. Wheezing. Comparison: June 24, 2024 Portable chest less inflated with interval improvement previous bibasilar infiltrates/atelectasis/effusions with mild residual. Upper lungs clear. Heart not enlarged. No new cardiopulmonary abnormalities.
[2024-07-27 11:21] VITALS: BP 101/61; PULSE 82; RESP 20; O2SAT 95
== END 2024-07-27 16:09 | disposition home or self-care (01) ==
LOC: ED 15:51 → MED SURG 19:37
PROVIDERS: ADMIT Student in an Organized Health Care Education/Training Program; ATTEND Student in an Organized Health Care Education/Training Program
DX: J18.9 Pneumonia, unspecified organism (principal); I11.0 Hypertensive heart disease with heart failure; I50.9 Heart failure, unspecified; N17.9 Acute kidney failure, unspecified; J44.1 Chronic obstructive pulmonary disease with (acute) exacerbation; I44.7 Left bundle-branch block, unspecified; Z79.899 Other long term (current) drug therapy; Z79.01 Long term (current) use of anticoagulants; Z99.81 Dependence on supplemental oxygen; E03.9 Hypothyroidism, unspecified; R79.89 Other specified abnormal findings of blood chemistry; Z86.73 Personal history of transient ischemic attack (TIA), and cerebral infarction without residual deficits; J38.3 Other diseases of vocal cords; K21.9 Gastro-esophageal reflux disease without esophagitis; R91.8 Other nonspecific abnormal finding of lung field
CPT/HCPCS: 0241U; 36415; 71045; 80053; 83605; 83735; 83880; 84132; 84484; 85025; 85027; 87040; 93005; 93041; 94640; 94667; 94760; 96374; 97161; 99285; G0378; Q3014; 99284; J0456; J1650; J1938; J1956; J2919; A9270-GY